=== PATIENT | male | born 1975 | race Caucasian/White ===

== ENCOUNTER 2017-02-24 19:13 | Emergency (ER) | payer OTHER ==
[~2017-02-24] VITALS: Ht 172.7 cm; Wt 75.0 kg
[~2017-02-24 19:13] MED LIST: FERR325T PO; FOLI1TAB4 PO; HYDR-3288 PO; RANI150T PO; VITA100T2 PO
[2017-02-24 19:25] VITALS: BP 113/67; PULSE 96; RESP 16; TEMP 97.6; O2SAT 96
[2017-02-25 00:26] VITALS: BP 110/68; PULSE 92; RESP 16; TEMP 98; O2SAT 96
[2017-02-25] MEDS ORDERED: SODIUM CHLOR 0.9% 1000 ML INJ 1,000 ML IV SCH (02:06)
[2017-02-25] MEDS ORDERED: SODIUM CHLORIDE 0.9% FLUSH 10 ML FLUSH IV FLUSH PRN (02:15)
[2017-02-25] MEDS ORDERED: MORPHINE SULFATE 4 MG/ML INJ IV PUSH ONE (02:15)
[2017-02-25] MEDS ORDERED: ONDANSETRON HCL 4 MG/2 ML VIAL IVP ONE (02:15)
[2017-02-25 02:18] VITALS: RESP 16
[2017-02-25 02:47] LABS: AUTOMATED NEUTROPHIL # 2.2 TH/MM3 (1.8-7.7); BASOPHIL # 0.1 TH/MM3 (0-0.2); BASOPHIL % 1.3 % (0.0-2.0); EOSINOPHIL # 0.1 TH/MM3 (0-0.4); EOSINOPHIL % 2.2 % (0.0-4.0); HEMATOCRIT 38.7 % (39.0-51.0); LYMPH % 37.1 % (9.0-44.0); LYMPHOCYTE # 1.9 TH/MM3 (1.0-4.8); MEAN CELL VOLUME 91.4 FL (80.0-100.0); MEAN CORPUSCULAR HGB CONC 33.9 % (32.0-36.0); MONO % 18.3 % (0.0-8.0); NEUT % 41.1 % (16.0-70.0); PLATELET COUNT 201 TH/MM3 (150-450); RED BLOOD COUNT 4.23 MIL/MM3 (4.50-5.90); RED CELL DISTRIBUTION WIDTH 18.5 % (11.6-17.2); WHITE BLOOD COUNT 5.2 TH/MM3 (4.0-11.0)
[2017-02-25 02:53] LABS: APTT (PATIENT) 28.1 SEC (24.3-30.1); HEMO FLAGS AUTO DIFF; PROTHROMBIN TIME - PATIENT 10.6 SEC (9.8-11.6)
[2017-02-25 03:05] LABS: ALKALINE PHOSPHATASE 43 U/L (45-117); TOTAL BILIRUBIN ADULT 0.2 MG/DL (0.2-1.0)
[2017-02-25 03:13] LABS: ALT (GPT) 46 U/L (12-78); ANION GAP 12 MEQ/L (5-15); AST (GOT) 54 U/L (15-37); BICARBONATE 23.4 MEQ/L (21.0-32.0); BLOOD UREA NITROGEN 6 MG/DL (7-18); CHLORIDE 104 MEQ/L (98-107); GLOMERULAR FILTRATION RATE 147 ML/MIN (>89); INDIRECT BILIRUBIN 0.1 MG/DL (0.0-0.8); SODIUM (NA) 139 MEQ/L (136-145)
[2017-02-25 03:14] LABS: POTASSIUM 4.1 MEQ/L (3.5-5.1)
[2017-02-25] MEDS ORDERED: HYDROmorphone HCL PF 1 MG/ML VIAL IV PUSH ONE (03:15)
[2017-02-25 03:22] LABS: HOWELL-JOLLY BODIES PRESENT (NONE SEEN); PLATELET ESTIMATE SMEAR NORMAL (NORMAL); PLATELET MORPHOLOGY NORMAL (NORMAL); SCAN/DIFF AUTO DIFF CONFIRMED; TARGET CELLS 1+ (NORMAL)
[2017-02-25 03:24] LABS: ACANTHOCYTES OCC (NORMAL)
[2017-02-25] MEDS ORDERED: IOHEXOL 350 MG/ML 50 ML BTL (for RAD DIAG) IV ONE (03:58)
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
--- NOTE | 2017-02-25 04:29 | RADRPT ---
EXAM DATE/TIME: 02/25/2017 03:54 [facility] COMPARISON: CT ABDOMEN & PELVIS W CONTRAST, August 30, 2016, 10:30. INDICATIONS : Abdominal pain. IV CONTRAST: 95 cc Omnipaque 350 (iohexol) IV ORAL CONTRAST: No oral contrast ingested. RADIATION DOSE: 5.86 CTDIvol (mGy) MEDICAL HISTORY : Gastroesophageal reflux disease. Pancreatitis. colitis SURGICAL HISTORY : Splenectomy. ENCOUNTER: Initial ACUITY: 1 day PAIN SCALE: 6/10 LOCATION: abdomen TECHNIQUE: Volumetric scanning of the abdomen and pelvis was performed. Using automated exposure control and ad justment of the mA and/or kV according to patient size, radiation dose was kept as low as reasonably achievable to obtain optimal diagnostic quality images. FINDINGS: Compare August 2016. Dependent atelectasis present at the lung bases. Mild fatty liver. Previous s plenectomy. Adrenals, kidneys and pancreas unremarkable. No calcified gallstones or biliary ductal di latation. There is no free fluid. No bowel obstruction. No adenopathy. CONCLUSION: 1. Mild dependent atelectasis at the lung bases. Mild fatty liver. No acute findings within the abdom en and pelvis. 2. Previous splenectomy. Rome Greco MD on February 25, 2017 at 4:22 Board Certified Radiologist. This report was verified electronically.
[2017-02-25] MEDS ORDERED: LIDOCAINE VISCOUS 2% SOLN 15 ML UDC PO ONE (05:00)
[2017-02-25] MEDS ORDERED: ALUMINUM/MAGNESIUM/SIMETH 30 ML CUP PO ONE (05:00)
[2017-02-25 05:38] VITALS: BP 138/83; PULSE 65; RESP 16; O2SAT 96
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
[2017-02-25] MEDS ORDERED: ZANT150T2 PO (06:22)
[2017-02-25] MEDS ORDERED: MAALSUS PO (06:22)
== END 2017-02-25 06:50 | disposition home or self-care (01) ==
LOC: NEPE 19:13
DX: K21.9 Gastro-esophageal reflux disease without esophagitis (principal); F17.210 Nicotine dependence, cigarettes, uncomplicated; K85.90 Acute pancreatitis without necrosis or infection, unspecified; F12.10 Cannabis abuse, uncomplicated; F10.10 Alcohol abuse, uncomplicated
CPT/HCPCS: 73590; 73630; 74177; 80048; 80076; 83690; 85025; 85610; 85730; 96361; 96374; 96375; 99284; J1170; J2270; J2405; J7030; Q9967

== ENCOUNTER 2017-04-15 16:59 | Emergency (ER) | payer OTHER ==
[~2017-04-15] VITALS: Ht 182.9 cm; Wt 69.5 kg
[~2017-04-15 16:59] MED LIST changes: -FERR325T PO; -FOLI1TAB4 PO; -HYDR-3288 PO; -VITA100T2 PO
[2017-04-15 17:09] VITALS: BP 112/76; PULSE 91; RESP 16; TEMP 99; O2SAT 95
--- NOTE | 2017-04-15 17:23 | PD ---
Physical Exam Time Seen by Provider: 17:21 Narrative 41 y/o male with RLE pain. Currently his RLE is wrapped in an daniel bandage. Vital signs reviewed. Seen at triage desk. Awaiting bed placement. Data Data Last Documented VS Vital Signs Date Time Temp Pulse Resp B/P Pulse Ox O2 Delivery O2 Flow Rate FiO2 04/15/17 17:09 99.0 91 16 112/76 95 MDM Medical Record Reviewed: Yes Supervised Visit with JOSE R: Stiven Olivarez April 15, 2017 17:23
[2017-04-15 19:43] VITALS: BP 135/75; PULSE 67; RESP 18; O2SAT 98
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
[2017-04-15] MEDS ORDERED: SODIUM CHLOR 0.9% 1000 ML INJ 1,000 ML IV ONE (20:00)
[2017-04-15] MEDS ORDERED: KETOROLAC TROMETHAMINE 30 MG/ML (IVP) VIAL IV PUSH ONE (20:00)
[2017-04-15] MEDS ORDERED: ONDANSETRON HCL 4 MG/2 ML VIAL IV ONE (20:00)
[2017-04-15] MEDS ORDERED: ceFAZolin 2 GM PREMIX 50 ML IV ONE (20:00)
[2017-04-15] MEDS ORDERED: CLINDAMYCIN INJ 900 MG in SODIUM CHLORIDE 0.9% INJ 100 ML IV ONE (20:00)
[2017-04-15 20:27] LABS: AUTOMATED NEUTROPHIL # 6.8 TH/MM3 (1.8-7.7); BASOPHIL # 0.1 TH/MM3 (0-0.2); BASOPHIL % 1.1 % (0.0-2.0); EOSINOPHIL # 0.1 TH/MM3 (0-0.4); EOSINOPHIL % 0.5 % (0.0-4.0); HEMATOCRIT 40.3 % (39.0-51.0); HEMO FLAGS DIFF FINAL; LYMPH % 14.7 % (9.0-44.0); LYMPHOCYTE # 1.5 TH/MM3 (1.0-4.8); MEAN CORPUSCULAR HGB CONC 33.7 % (32.0-36.0); MONO % 17.3 % (0.0-8.0); NEUT % 66.4 % (16.0-70.0); PLATELET COUNT 199 TH/MM3 (150-450); RED BLOOD COUNT 4.38 MIL/MM3 (4.50-5.90); RED CELL DISTRIBUTION WIDTH 17.7 % (11.6-17.2); WHITE BLOOD COUNT 10.2 TH/MM3 (4.0-11.0)
[2017-04-15 20:30] LABS: ANION GAP 10 MEQ/L (5-15)
[2017-04-15 20:33] LABS: ALKALINE PHOSPHATASE 69 U/L (45-117); ALT (GPT) 32 U/L (12-78); AST (GOT) 55 U/L (15-37); BICARBONATE 25.9 MEQ/L (21.0-32.0); BLOOD UREA NITROGEN 5 MG/DL (7-18); CHLORIDE 104 MEQ/L (98-107); GLOMERULAR FILTRATION RATE 136 ML/MIN (>89); MAGNESIUM 2.1 MG/DL (1.5-2.5); POTASSIUM 3.7 MEQ/L (3.5-5.1); SODIUM (NA) 140 MEQ/L (136-145); TOTAL BILIRUBIN ADULT 0.4 MG/DL (0.2-1.0)
[2017-04-15 21:15] LABS: AMPHETAMINE, URINE NEG (NEG); BARBITURATES, URINE NEG (NEG); BLOOD, URINE TRACE (NEG); COCAINE, URINE NEG (NEG); COMMENT (UR) CULT NOT INDICATED; CULTURE IF INDICATED CULT NOT INDICATED; GLUCOSE,URINE NEG (NEG); KETONE, URINE NEG (NEG); MUCUS URINE FEW /lpf (OCC); NITRITE,URINE NEG (NEG); PH, URINE 5.5 (5.0-8.5); URINE COLOR YELLOW (YELLW/STRAW)
[2017-04-15] MEDS ORDERED: ACETAMINOPHEN 325 MG TAB PO ONE (21:30)
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
[2017-04-15] MEDS ORDERED: CEPH-460 PO (22:10)
[2017-04-15] MEDS ORDERED: BACT800T5 PO (22:10)
[2017-04-15] MEDS ORDERED: ZOFR4TAB3 SL (22:11)
[2017-04-15] MEDS ORDERED: NAPR-239 PO (22:11)
== END 2017-04-15 22:37 | disposition home or self-care (01) ==
LOC: NEPE 16:59
DX: L08.9 Local infection of the skin and subcutaneous tissue, unspecified (principal); M79.604 Pain in right leg; R10.13 Epigastric pain; R11.2 Nausea with vomiting, unspecified; K85.90 Acute pancreatitis without necrosis or infection, unspecified; K21.9 Gastro-esophageal reflux disease without esophagitis; F17.210 Nicotine dependence, cigarettes, uncomplicated; Z86.14 Personal history of Methicillin resistant Staphylococcus aureus infection
CPT/HCPCS: 71010; 80053; 80307; 81001; 83690; 83735; 85025; 96365; 96368; 96375; 99284; J0690; J1885; J2405; J7030

== ENCOUNTER 2017-04-28 13:22 | Inpatient (IN) | payer OTHER ==
[~2017-04-28] VITALS: Ht 182.9 cm; Wt 70.0 kg
[~2017-04-28 13:22] MED LIST changes: +BACT800T5 PO; +CEPH-460 PO; +NAPR-239 PO; +ZOFR4TAB3 SL
[2017-04-28] MEDS ORDERED: SODIUM CHLOR 0.9% 1000 ML INJ 1,000 ML IV SCH (13:29)
[2017-04-28] MEDS ORDERED: ONDANSETRON HCL 4 MG/2 ML VIAL IVP ONE (13:30)
[2017-04-28] MEDS ORDERED: SODIUM CHLORIDE 0.9% FLUSH 10 ML FLUSH IV FLUSH PRN ×2 (13:30→15:15)
[2017-04-28] MEDS ORDERED: LORazepam 2 MG/ML VIAL IV PUSH ONE (13:30)
[2017-04-28] MEDS ORDERED: HYDROmorphone HCL PF 1 MG/ML VIAL IVS ONE (13:30)
[2017-04-28 13:31] VITALS: BP 112/71; PULSE 57; RESP 16; TEMP 98.2; O2SAT 98
[2017-04-28 14:04] LABS: AUTOMATED NEUTROPHIL # 6.4 TH/MM3 (1.8-7.7); BASOPHIL % 0.6 % (0.0-2.0); HEMATOCRIT 38.6 % (39.0-51.0); HEMO FLAGS DIFF FINAL; LYMPH % 9.6 % (9.0-44.0); LYMPHOCYTE # 0.8 TH/MM3 (1.0-4.8); MEAN CELL VOLUME 93.3 FL (80.0-100.0); MEAN CORPUSCULAR HEMOGLOBIN 31.7 PG (27.0-34.0); MONO % 12.4 % (0.0-8.0); NEUT % 77.4 % (16.0-70.0); PLATELET COUNT 161 TH/MM3 (150-450); RED BLOOD COUNT 4.14 MIL/MM3 (4.50-5.90); RED CELL DISTRIBUTION WIDTH 18.8 % (11.6-17.2); WHITE BLOOD COUNT 8.3 TH/MM3 (4.0-11.0)
[2017-04-28 14:18] LABS: ALT (GPT) 42 U/L (12-78); ANION GAP 11 MEQ/L (5-15); AST (GOT) 67 U/L (15-37); BICARBONATE 25.6 MEQ/L (21.0-32.0); BLOOD UREA NITROGEN 5 MG/DL (7-18); CHLORIDE 101 MEQ/L (98-107); POTASSIUM 3.5 MEQ/L (3.5-5.1); SODIUM (NA) 138 MEQ/L (136-145)
[2017-04-28 14:22] LABS: ALKALINE PHOSPHATASE 58 U/L (45-117); TOTAL BILIRUBIN ADULT 0.4 MG/DL (0.2-1.0)
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
[2017-04-28] MEDS ORDERED: FLUMAZENIL 0.5 MG/5 ML VIAL IV PUSH PRN (15:15)
[2017-04-28] MEDS ORDERED: LORazepam 1 MG TAB PO PRN (15:15)
[2017-04-28] MEDS ORDERED: LORazepam 2 MG TAB PO PRN (15:15)
[2017-04-28] MEDS ORDERED: LORazepam 2 MG/ML VIAL IV PUSH PRN ×3 (15:15)
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
[2017-04-28] MEDS: HEPARIN SODIUM - SQ 10,000 UNITS/ML VIAL SQ SCH (15:37)
[2017-04-28] MEDS: HYDROmorphone HCL PF 1 MG/ML VIAL IV PRN ×3 (15:38→22:18)
[2017-04-28 16:00] VITALS: BP 134/86; PULSE 60; RESP 12; TEMP 96.4; O2SAT 95
[2017-04-28 16:20] VITALS: BP 119/69
[2017-04-28] MEDS: SODIUM CHLOR 0.9% 1000 ML INJ 1,000 ML IV SCH ×2 (18:25→23:42)
[2017-04-28] MEDS: ONDANSETRON HCL 4 MG/2 ML VIAL IV PRN (18:25)
[2017-04-28 20:00] VITALS: BP 132/85; PULSE 74; RESP 17; TEMP 98.2; O2SAT 97
[2017-04-28] MEDS: PANTOPRAZOLE SODIUM 40 MG VIAL IV PUSH SCH (20:40)
[2017-04-28] MEDS: SODIUM CHLORIDE 0.9% FLUSH 10 ML FLUSH IV FLUSH SCH (20:43)
[2017-04-29] VITALS: BP 133/82; PULSE 71; RESP 17; TEMP 99; O2SAT 96
[2017-04-29] MEDS: HYDROmorphone HCL PF 1 MG/ML VIAL IV PRN ×3 (01:46→09:00)
[2017-04-29] MEDS: LORazepam 2 MG/ML VIAL IV PUSH PRN ×2 (02:29→06:14)
[2017-04-29] MEDS: HEPARIN SODIUM - SQ 10,000 UNITS/ML VIAL SQ SCH ×2 (05:03→17:21)
[2017-04-29 05:46] LABS: BICARBONATE 25.2 MEQ/L (21.0-32.0); POTASSIUM 3.9 MEQ/L (3.5-5.1)
[2017-04-29] MEDS: ONDANSETRON HCL 4 MG/2 ML VIAL IV PRN (06:15)
[2017-04-29 08:00] VITALS: BP 118/77; PULSE 69; RESP 16; TEMP 97.7; O2SAT 97
[2017-04-29] MEDS: SODIUM CHLORIDE 0.9% FLUSH 10 ML FLUSH IV FLUSH SCH ×2 (08:58→19:55)
[2017-04-29] MEDS: SODIUM CHLOR 0.9% 1000 ML INJ 1,000 ML IV SCH ×3 (08:59→21:52)
--- NOTE | 2017-04-29 10:01 | HHI.PR ---
Subjective Remarks Patient seen in follow-up for alcoholic pancreatitis Reports he is feeling slightly better. Still having midepigastric pain and nausea. No vomiting. Objective Vitals Vital Signs Date Time Temp Pulse Resp B/P Pulse Ox O2 Delivery O2 Flow Rate FiO2 04/29/17 08:00 97.7 69 16 118/77 97 04/29/17 06:06 18 04/29/17 00:00 99.0 71 17 133/82 96 04/28/17 20:00 98.2 74 17 132/85 97 04/28/17 16:20 89 20 119/69 99 04/28/17 16:00 96.4 60 12 134/86 95 04/28/17 13:31 98.2 57 16 112/71 98 I/O 04/28/17 04/28/17 04/28/17 04/29/17 04/29/17 04/29/17 07:00 15:00 23:00 07:00 15:00 23:00 Intake Total 296 ml 346 ml Balance 296 ml 346 ml Intake Oral 0 ml 0 ml IV Total 296 ml 346 ml # Voids 2 2 Result Diagram: 04/28/17 1340 04/29/17 0505 Objective Remarks GENERAL: This is a well-nourished, well-developed patient, in no apparent distress. CARDIOVASCULAR: Normal rate and regular rhythm without murmurs, gallops, or rubs. RESPIRATORY: Good respiratory efforts. Breath sounds equal and clear to auscultation bilaterally. GASTROINTESTINAL: Abdomen soft, tender to palpation in the midepigastric region. Normal active bowel sounds MUSCULOSKELETAL: Extremities without cyanosis, or edema. NEURO: Alert & Oriented x4 to person, place, time, situation. Moves all ext x4 PSYCH: Appropriate mood and affect. A/P Problem List: (1) Pancreatitis ICD Code: K85.90 Status: Acute (2) ETOH abuse ICD Code: F10.10 Status: Chronic Assessment and Plan 41-year-old male with: Acute alcoholic pancreatitis: Recurrent secondary to alcohol dependence. Lipase improved to 2K today. Patient still symptomatic Supportive care with IV fluid Change pain medication to Percocet and morphine IV as needed for breakthrough. Alcohol dependence: The patient was thoroughly counseled. He currently does not have a plan for rehabilitation. GI prophylaxis: PPI. Stool softener PRN constipation. DVT PPx: Heparin Discussed with ANABEL. Latrell Coe MD April 29, 2017 10:01
[2017-04-29 12:00] VITALS: BP_SYST 118; BP_SYST 123; BP_DIAS 67; BP_DIAS 77; PULSE 69; PULSE 74; RESP 16; RESP 18; TEMP 97.2; TEMP 97.7; O2SAT 96; O2SAT 97
[2017-04-29] MEDS: oxyCODONE/ACETAMINOPHEN 7.5 MG/325 MG TAB PO PRN ×2 (13:22→19:54)
[2017-04-29 16:00] VITALS: BP 136/86; PULSE 72; RESP 16; TEMP 97.6; O2SAT 95
[2017-04-29] MEDS: MORPHINE SULFATE 4 MG/ML INJ IV PUSH PRN ×2 (17:27→21:52)
[2017-04-29] MEDS: PANTOPRAZOLE SODIUM 40 MG VIAL IV PUSH SCH (19:54)
[2017-04-29 21:00] VITALS: BP 133/77; PULSE 71; RESP 17; TEMP 98.7; O2SAT 97
[2017-04-30] VITALS: BP 120/76; PULSE 71; RESP 17; TEMP 98; O2SAT 97
[2017-04-30] MEDS: oxyCODONE/ACETAMINOPHEN 7.5 MG/325 MG TAB PO PRN ×3 (01:25→09:40)
[2017-04-30] MEDS: MORPHINE SULFATE 4 MG/ML INJ IV PUSH PRN ×2 (02:43→06:37)
[2017-04-30] MEDS: HEPARIN SODIUM - SQ 10,000 UNITS/ML VIAL SQ SCH (05:31)
[2017-04-30] MEDS: SODIUM CHLOR 0.9% 1000 ML INJ 1,000 ML IV SCH (05:32)
[2017-04-30 06:24] LABS: BICARBONATE 27.7 MEQ/L (21.0-32.0); POTASSIUM 3.7 MEQ/L (3.5-5.1)
[2017-04-30 08:00] VITALS: BP 124/76; PULSE 68; RESP 18; TEMP 98.4; O2SAT 95
[2017-04-30] MEDS: SODIUM CHLORIDE 0.9% FLUSH 10 ML FLUSH IV FLUSH SCH (08:32)
[2017-04-30] MEDS ORDERED: PROT40TA PO (08:59)
[2017-04-30] MEDS ORDERED: DOCUSATE SODIUM 100 MG CAP PO SCH (09:00)
[2017-04-30] MEDS ORDERED: HYDR-3533 PO (09:40)
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
--- NOTE | 2017-04-30 09:44 | HHI.DS ---
Discharge Summary Admission Date April 28, 2017 at 15:03 Discharge Date: April 30, 2017 Admitting Diagnosis acute pancreatitis (1) Pancreatitis ICD Code: K85.90 (2) ETOH abuse ICD Code: F10.10 Procedures None Brief History - From Admission 41-year-old male with a medical history significant for alcohol dependence and previous history of an cryptitis presented to the hospital with complaint of epigastric pain, nausea and vomiting for the past few days. He continues to drink alcohol up until this morning. He reports he drinks anywhere from 4-8 beers. Today he could no longer keep anything down therefore he presented to the hospital. He describes a sharp, severe midepigastric pain. He had an episode this morning where he became diaphoretic with nausea and vomiting. Workup in the emergency room consistent with acute pancreatitis. Patient admits to having withdrawal symptoms in the past but denies alcohol withdrawal seizures or ICU admissions. CBC/BMP: 04/28/17 1340 04/30/17 0538 Significant Findings Laboratory Tests Test 04/28/17 04/28/17 04/29/17 04/30/17 13:40 14:00 05:05 05:38 Red Blood Count 4.14 MIL/MM3 (4.50-5.90) Hematocrit 38.6 % (39.0-51.0) Red Cell Distribution Width 18.8 % (11.6-17.2) Neutrophils (%) (Auto) 77.4 % (16.0-70.0) Monocytes (%) (Auto) 12.4 % (0.0-8.0) Lymphocytes # (Auto) 0.8 TH/MM3 (1.0-4.8) Monocytes # (Auto) 1.0 TH/MM3 (0-0.9) Blood Urea Nitrogen 5 MG/DL (7-18) 6 MG/DL (7-18) 3 MG/DL (7-18) Creatinine 0.53 MG/DL 0.49 MG/DL (0.60-1.30) (0.60-1.30) Aspartate Amino Transf 67 U/L (15-37) (AST/SGOT) Albumin 3.3 GM/DL (3.4-5.0) Lipase 3252 U/L 2289 U/L (73-393) (73-393) Lactic Acid Level 2.3 mmol/L (0.4-2.0) Sodium Level 135 MEQ/L (136-145) Random Glucose 66 MG/DL (74-106) Calcium Level 8.3 MG/DL (8.5-10.1) PE at Discharge GENERAL: This is a well-nourished, well-developed patient, in no apparent distress. CARDIOVASCULAR: Normal rate and regular rhythm without murmurs, gallops, or rubs. RESPIRATORY: Good respiratory efforts. Breath sounds equal and clear to auscultation bilaterally. GASTROINTESTINAL: Abdomen soft, tender to palpation in the midepigastric region. Normal active bowel sounds MUSCULOSKELETAL: Extremities without cyanosis, or edema. NEURO: Alert & Oriented x4 to person, place, time, situation. Moves all ext x4 PSYCH: Appropriate mood and affect. Pt update on day of discharge Patient reports he is feeling better. He wants to eat. Abdominal pain have significantly improved. He has no nausea. Ready for discharge. Hospital Course 41-year-old male with chronic alcohol dependence and recurrent alcoholic pancreatitis admitted for another episode of acute alcoholic pancreatitis. The patient was treated with supportive care including IV fluids and pain medication. His lipase trended down to normal levels. His abdominal pain improved. He was thoroughly counseled to stop drinking alcohol. Unfortunately he does not have a plan to stop. His girlfriend drinks with him every day. The patient was also counseled about his tobacco dependence. He is discharged in stable condition. Pt Condition on Discharge: Good Discharge Disposition: Discharge Home Discharge Time: <= 30 minutes Discharge Instructions DIET: Follow Instructions for: Heart Healthy Diet Activities you can perform: Regular-No Restrictions New Medications: Hydrocodone-Acetaminophen (Lortab) 5-325 Mg Tab 1 TAB PO Q6H PRN PAIN #15 Ref 0 TAB Pantoprazole (Protonix) 40 Mg Tab 40 MG PO DAILY Reflux #30 Ref 0 TAB Latrell Coe MD April 30, 2017 09:44
== END 2017-04-30 11:39 | disposition home or self-care (01) | DRG 440 ==
LOC: NEPE 13:22 → NEDA 15:03 → OBSVTOIN 15:03 → N07A 16:54
PROVIDERS: ADMIT Family Medicine; ATTEND Family Medicine
DX: K85.20 Alcohol induced acute pancreatitis without necrosis or infection (principal); F10.20 Alcohol dependence, uncomplicated; F17.210 Nicotine dependence, cigarettes, uncomplicated; Z59.0 Homelessness
CPT/HCPCS: 80048; 80053; 82948; 83605; 83690; 85025; 96374; 96375; C9113; J1170; J1644; J2060; J2270; J2405; J7030

== ENCOUNTER 2017-05-11 17:41 | Inpatient (IN) | payer OTHER ==
[~2017-05-11] VITALS: Ht 182.9 cm; Wt 80.0 kg
[~2017-05-11 17:41] MED LIST changes: -BACT800T5 PO; -CEPH-460 PO; +HYDR-3533 PO; -NAPR-239 PO; +PROT40TA PO; -RANI150T PO; -ZOFR4TAB3 SL
[2017-05-11 17:54] VITALS: BP 124/78; PULSE 78; RESP 18; TEMP 98.4; O2SAT 95
[2017-05-11 17:57] VITALS: RESP 18; O2SAT 98
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
[2017-05-11] MEDS ORDERED: SODIUM CHLORIDE 0.9% FLUSH 10 ML FLUSH IV FLUSH PRN ×2 (18:00→20:00)
[2017-05-11] MEDS ORDERED: MORPHINE SULFATE 4 MG/ML INJ IV PUSH ONE ×2 (18:00→19:30)
[2017-05-11] MEDS ORDERED: ACETAMINOPHEN/HYDROcodone 325 MG/5 MG TAB PO ONE (18:00)
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
[2017-05-11] MEDS ORDERED: ONDANSETRON HCL 4 MG/2 ML VIAL IV PUSH ONE (18:30)
[2017-05-11 18:52] LABS: AUTOMATED NEUTROPHIL # 4.1 TH/MM3 (1.8-7.7); BASOPHIL # 0.3 TH/MM3 (0-0.2); BASOPHIL % 4.6 % (0.0-2.0); EOSINOPHIL # 0.1 TH/MM3 (0-0.4); EOSINOPHIL % 1.3 % (0.0-4.0); HEMATOCRIT 37.9 % (39.0-51.0); HEMO FLAGS DIFF FINAL; LYMPH % 17.8 % (9.0-44.0); LYMPHOCYTE # 1.2 TH/MM3 (1.0-4.8); MEAN CELL VOLUME 96.6 FL (80.0-100.0); MEAN CORPUSCULAR HEMOGLOBIN 31.2 PG (27.0-34.0); MEAN CORPUSCULAR HGB CONC 32.3 % (32.0-36.0); MONO % 12.7 % (0.0-8.0); NEUT % 63.6 % (16.0-70.0); PLATELET COUNT 143 TH/MM3 (150-450); RED BLOOD COUNT 3.92 MIL/MM3 (4.50-5.90); WHITE BLOOD COUNT 6.5 TH/MM3 (4.0-11.0)
[2017-05-11 19:05] LABS: APTT (PATIENT) 29.9 SEC (24.3-30.1); INTERNATIONAL NORMALIZED RATIO 0.9 RATIO; PROTHROMBIN TIME - PATIENT 10.4 SEC (9.8-11.6)
[2017-05-11 19:10] LABS: ALT (GPT) 36 U/L (12-78)
[2017-05-11 19:12] LABS: ANION GAP 9 MEQ/L (5-15); AST (GOT) 64 U/L (15-37); BICARBONATE 26.1 MEQ/L (21.0-32.0); BLOOD UREA NITROGEN 9 MG/DL (7-18); CHLORIDE 105 MEQ/L (98-107); POTASSIUM 3.8 MEQ/L (3.5-5.1); SODIUM (NA) 140 MEQ/L (136-145)
[2017-05-11 19:14] LABS: ALKALINE PHOSPHATASE 54 U/L (45-117); CREATINE KINASE 382 U/L (39-308); TOTAL BILIRUBIN ADULT 0.3 MG/DL (0.2-1.0)
[2017-05-11 19:26] LABS: CKMB 2.6 NG/ML (0.5-3.6)
[2017-05-11] MEDS ORDERED: SODIUM CHLOR 0.9% 1000 ML INJ 1,000 ML IV ONE ×2 (19:30)
[2017-05-11] MEDS ORDERED: LACTULOSE SYRUP 20 GM/30 ML CUP PO PRN (20:00)
[2017-05-11] MEDS ORDERED: ACETAMINOPHEN 325 MG TAB PO PRN (20:00)
[2017-05-11] MEDS ORDERED: MORPHINE SULFATE 4 MG/ML INJ IV PUSH PRN (20:00)
[2017-05-11] MEDS ORDERED: MAGNESIUM HYDROXIDE SUSP 30 ML CUP PO PRN (20:00)
[2017-05-11] MEDS ORDERED: BISACODYL 10 MG SUPP RECTAL PRN (20:00)
[2017-05-11] MEDS ORDERED: SENNOSIDES 8.6 MG TAB PO PRN (20:00)
[2017-05-11] MEDS ORDERED: ONDANSETRON HCL 4 MG/2 ML VIAL IVP PRN (20:00)
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
[2017-05-11] MEDS ORDERED: LORazepam 2 MG/ML VIAL IV PUSH PRN ×4 (20:15)
[2017-05-11] MEDS ORDERED: cloNIDine HCL 0.1 MG TAB PO PRN (20:15)
[2017-05-11] MEDS ORDERED: FLUMAZENIL 0.5 MG/5 ML VIAL IV PUSH PRN (20:15)
[2017-05-11] MEDS ORDERED: LORazepam 2 MG TAB PO PRN (20:15)
[2017-05-11 20:18] VITALS: BP 134/76; PULSE 68; RESP 16; O2SAT 97
[2017-05-11] MEDS: SODIUM CHLORIDE 0.9% FLUSH 10 ML FLUSH IV FLUSH SCH (21:00)
[2017-05-11] MEDS: THIAMINE INJ 100 MG in SODIUM CHLORIDE 0.9% INJ 100 ML IV SCH (21:12)
[2017-05-11] MEDS: DOCUSATE SODIUM 50 MG/SENNA 8.6 MG TAB PO SCH (21:12)
[2017-05-11] MEDS: MULTIVITAMIN INJ 10 ML, FOLIC ACID INJ 1 MG in SODIUM CHLORID 0.9% 500 ML INJ 500 ML IV SCH (21:12)
[2017-05-11 21:13] VITALS: BP 107/76; PULSE 78; RESP 18; TEMP 97.6; O2SAT 97
[2017-05-11] MEDS: SODIUM CHLOR 0.9% 1000 ML INJ 1,000 ML IV SCH (21:13)
[2017-05-11 22:00] VITALS: PULSE 64
[2017-05-11] MEDS: HYDROmorphone HCL PF 1 MG/ML VIAL IV PUSH PRN (22:53)
[2017-05-11] MEDS ORDERED: RESP: ALBUTEROL 2.5 MG/IPRATROPIUM 0.5 MG NEB (PRN) NEB (23:30)
[2017-05-12] VITALS (7 sets, daily range): BP systolic 111–137; BP diastolic 61–85; PULSE 43–79; RESP 18–20; TEMP 97.5–98.7; O2SAT 96–98
[2017-05-12 00:35] LABS: MAGNESIUM 1.9 MG/DL (1.5-2.5)
[2017-05-12 00:38] LABS: CREATINE KINASE 280 U/L (39-308)
[2017-05-12] MEDS: HYDROmorphone HCL PF 1 MG/ML VIAL IV PUSH PRN ×2 (03:00→07:50)
[2017-05-12 05:23] LABS: AUTOMATED NEUTROPHIL # 3.9 TH/MM3 (1.8-7.7); BASOPHIL # 0.1 TH/MM3 (0-0.2); BASOPHIL % 1.6 % (0.0-2.0); EOSINOPHIL # 0.1 TH/MM3 (0-0.4); EOSINOPHIL % 1.8 % (0.0-4.0); HEMATOCRIT 32.8 % (39.0-51.0); HEMO FLAGS DIFF FINAL; LYMPH % 19.1 % (9.0-44.0); LYMPHOCYTE # 1.2 TH/MM3 (1.0-4.8); MEAN CELL VOLUME 95.5 FL (80.0-100.0); MEAN CORPUSCULAR HEMOGLOBIN 32.2 PG (27.0-34.0); MEAN CORPUSCULAR HGB CONC 33.7 % (32.0-36.0); MONO % 14.2 % (0.0-8.0); NEUT % 63.3 % (16.0-70.0); PLATELET COUNT 120 TH/MM3 (150-450); RED BLOOD COUNT 3.44 MIL/MM3 (4.50-5.90); RED CELL DISTRIBUTION WIDTH 17.6 % (11.6-17.2); WHITE BLOOD COUNT 6.2 TH/MM3 (4.0-11.0)
[2017-05-12] MEDS: SODIUM CHLOR 0.9% 1000 ML INJ 1,000 ML IV SCH ×4 (05:54→21:23)
[2017-05-12 06:03] LABS: ALKALINE PHOSPHATASE 45 U/L (45-117); ALT (GPT) 28 U/L (12-78); ANION GAP 12 MEQ/L (5-15); AST (GOT) 44 U/L (15-37); BICARBONATE 23.3 MEQ/L (21.0-32.0); BLOOD UREA NITROGEN 5 MG/DL (7-18); CALCIUM-PROTEIN CORRECTED 7.8 MG/DL (8.5-10.1); CHLORIDE 105 MEQ/L (98-107); CREATINE KINASE 236 U/L (39-308); GLOMERULAR FILTRATION RATE 190 ML/MIN (>89); POTASSIUM 3.5 MEQ/L (3.5-5.1); SODIUM (NA) 140 MEQ/L (136-145); TOTAL BILIRUBIN ADULT 0.4 MG/DL (0.2-1.0)
[2017-05-12] MEDS: PANTOPRAZOLE SOD 40 MG DELAYED RELEASE TAB PO SCH (07:51)
[2017-05-12] MEDS: DOCUSATE SODIUM 50 MG/SENNA 8.6 MG TAB PO SCH ×2 (07:51→21:00)
[2017-05-12] MEDS: SODIUM CHLORIDE 0.9% FLUSH 10 ML FLUSH IV FLUSH SCH ×2 (07:52→20:04)
[2017-05-12] MEDS: LORazepam 1 MG TAB PO PRN ×2 (07:57→21:27)
--- NOTE | 2017-05-12 10:36 | HHI.PR ---
Subjective Remarks Follow-up recurrent acute pancreatitis 05/12/17-patient seen and examined, CIWA score 19 ,complains of abdominal pain and patient currently bradycardic secondary to pain medication along with benzo Objective Vitals Vital Signs Date Time Temp Pulse Resp B/P Pulse Ox O2 Delivery O2 Flow Rate FiO2 05/12/17 08:00 98.3 51 18 132/85 96 05/12/17 04:27 97.5 67 18 127/81 98 05/12/17 03:30 18 05/12/17 00:00 97.6 73 18 111/61 96 05/11/17 22:00 64 05/11/17 21:13 97.6 78 18 107/76 97 05/11/17 20:37 16 05/11/17 20:18 68 16 134/76 97 Room Air 05/11/17 19:15 16 05/11/17 17:57 18 98 Room Air 05/11/17 17:54 81 18 95 Room Air 05/11/17 17:54 98.4 78 18 124/78 95 Room Air I/O 05/11/17 05/11/17 05/11/17 05/12/17 05/12/17 05/12/17 07:00 15:00 23:00 07:00 15:00 23:00 Intake Total 2000 ml 703 ml 0 ml Output Total 700 ml Balance 2000 ml 3 ml 0 ml Intake Oral 0 ml IV Total 2000 ml 703 ml Output Urine Total 700 ml # Voids 1 Result Diagram: 05/12/17 0426 05/12/17 0426 Imaging Last Impressions Chest X-Ray 05/11/17 9963 Signed Impressions: Service Date/Time: Thursday, May 11, 2017 18:03 - CONCLUSION: No evidence of acute cardiopulmonary disease. Narinder Caban MD Objective Remarks GENERAL: NAD with upper extremities tremors SKIN: Warm and dry. HEAD: Normocephalic. EYES: No scleral icterus. No injection or drainage. NECK: Supple, trachea midline. No JVD or lymphadenopathy. CARDIOVASCULAR: Regular rate and rhythm without murmurs, gallops, or rubs. RESPIRATORY: Breath sounds equal bilaterally. No accessory muscle use. GASTROINTESTINAL: Abdomen soft, mildly tender, nondistended. Positive bowel sounds MUSCULOSKELETAL: No cyanosis, or edema. BACK: Nontender without obvious deformity. No CVA tenderness. A/P Problem List: (1) Recurrent acute pancreatitis ICD Code: K85.90 Status: Acute (2) Chest wall contusion ICD Code: S20.219A Status: Acute (3) Alcohol abuse ICD Code: F10.10 Status: Acute Assessment and Plan 41-year-old man with Recurrent acute pancreatitis Lipase trending down to 2750 and monitor lipase level Continue conservative management with nothing by mouth, aggressive IV fluid hydration, monitoring of calcium Change parenteral pain medication to IV Toradol Chronic alcohol abuse Alcohol cessation counseling provided Continue rally pack, CIWA protocol, seizure precaution start Librium when necessary Tobacco abuse Tobacco cessation counseling provided Nicotine when necessary Bradycardia Secondary to medication side effect Telemetry monitoring Atypical chest pain Noncardiac, secondary to episode of emesis and likely secondary to GI ACS ruled out per protocol with serial cardiac enzyme and EKGs Thrombocytopenia Secondary to liver disease, monitor platelets Normochromic normocytic anemia-secondary to chronic disease H&H stable, continue to monitor DVT prophylaxis: Bilateral SCDs GI prophylaxis: PPI Problem Qualifiers (1) Chest wall contusion: Qualified Code: S20.212A - Chest wall contusion, left, initial encounter Mayco Machado MD May 12, 2017 10:36
[2017-05-12] MEDS: KETOROLAC TROMETHAMINE 30 MG/ML (IVP) VIAL IVP PRN ×3 (11:17→23:00)
--- NOTE | 2017-05-12 11:37 | EKG ---
Date Performed: 05/11/2017 Time Performed: 20:28:53 PTAGE: 41 years EKG: Sinus rhythm Since previous tracing, no significant change noted NORMAL ECG PREVIOUS TRACING : 05/11/2017 18.20.27 DOCTOR: Cricket Goss Interpretating Date/Time 05/12/2017 11:37:25
--- NOTE | 2017-05-12 11:37 | EKG ---
Date Performed: 05/11/2017 Time Performed: 18:20:27 PTAGE: 41 years EKG: Sinus rhythm WITH SINUS ARRHYTHMIA MINIMAL VOLTAGE CRITERIA FOR LVH, CONSIDER NORMAL VARIANT Since previous shane ng, no significant change noted BORDERLINE ECG PREVIOUS TRACING : 11/21/2016 10.52.18 DOCTOR: Cricket Goss Interpretating Date/Time 05/12/2017 11:35:28
[2017-05-12] MEDS: THIAMINE INJ 100 MG in SODIUM CHLORIDE 0.9% INJ 100 ML IV SCH (21:23)
[2017-05-12] MEDS: MULTIVITAMIN INJ 10 ML, FOLIC ACID INJ 1 MG in SODIUM CHLORID 0.9% 500 ML INJ 500 ML IV SCH (21:23)
[2017-05-13 00:30] VITALS: BP 129/80; PULSE 79; RESP 16; TEMP 97.8; O2SAT 96
[2017-05-13 04:55] VITALS: BP 118/73; PULSE 78; RESP 18; TEMP 97.8; O2SAT 98
[2017-05-13 05:30] LABS: BASOPHIL # 0.1 TH/MM3 (0-0.2); BASOPHIL % 1.1 % (0.0-2.0); EOSINOPHIL # 0.1 TH/MM3 (0-0.4); HEMATOCRIT 37.3 % (39.0-51.0); LYMPH % 15.9 % (9.0-44.0); MEAN CORPUSCULAR HEMOGLOBIN 32.4 PG (27.0-34.0); MEAN CORPUSCULAR HGB CONC 33.7 % (32.0-36.0); MONO % 18.5 % (0.0-8.0); NEUT % 62.5 % (16.0-70.0); PLATELET COUNT 127 TH/MM3 (150-450); RED BLOOD COUNT 3.89 MIL/MM3 (4.50-5.90); RED CELL DISTRIBUTION WIDTH 16.9 % (11.6-17.2); WHITE BLOOD COUNT 6.5 TH/MM3 (4.0-11.0)
[2017-05-13 05:33] LABS: HEMO FLAGS AUTO DIFF
[2017-05-13 05:41] LABS: ALKALINE PHOSPHATASE 54 U/L (45-117); ALT (GPT) 24 U/L (12-78); ANION GAP 8 MEQ/L (5-15); AST (GOT) 29 U/L (15-37); BICARBONATE 26.6 MEQ/L (21.0-32.0); BLOOD UREA NITROGEN 4 MG/DL (7-18); CHLORIDE 103 MEQ/L (98-107); GLOMERULAR FILTRATION RATE 159 ML/MIN (>89); POTASSIUM 4.1 MEQ/L (3.5-5.1); SODIUM (NA) 138 MEQ/L (136-145); TOTAL BILIRUBIN ADULT 0.7 MG/DL (0.2-1.0)
[2017-05-13] MEDS: KETOROLAC TROMETHAMINE 30 MG/ML (IVP) VIAL IVP PRN (05:48)
[2017-05-13 07:29] LABS: TARGET CELLS 2+ (NORMAL)
[2017-05-13 07:30] LABS: HOWELL-JOLLY BODIES PRESENT (NONE SEEN); PLATELET MORPHOLOGY ENLARGED (NORMAL)
[2017-05-13 07:31] LABS: PLATELET ESTIMATE SMEAR NORMAL (NORMAL)
[2017-05-13 07:32] LABS: SCAN/DIFF AUTO DIFF CONFIRMED
[2017-05-13 08:00] VITALS: BP 149/81; PULSE 55; RESP 18; TEMP 98.3; O2SAT 99
[2017-05-13] MEDS: PANTOPRAZOLE SOD 40 MG DELAYED RELEASE TAB PO SCH (08:39)
[2017-05-13] MEDS: DOCUSATE SODIUM 50 MG/SENNA 8.6 MG TAB PO SCH (08:40)
[2017-05-13] MEDS: SODIUM CHLORIDE 0.9% FLUSH 10 ML FLUSH IV FLUSH SCH (08:40)
[2017-05-13] MEDS: SODIUM CHLOR 0.9% 1000 ML INJ 1,000 ML IV SCH (08:46)
[2017-05-13 08:59] VITALS: O2SAT 99
--- NOTE | 2017-05-13 09:50 | HHI.PR ---
Subjective Remarks Follow-up recurrent acute pancreatitis 05/12/17-patient seen and examined, CIWA score 19 ,complains of abdominal pain and patient currently bradycardic secondary to pain medication along with benzo 05/13/17-patient seen and examined, lipase 255 and patient was so mild abdominal pain otherwise stable Objective Vitals Vital Signs Date Time Temp Pulse Resp B/P Pulse Ox O2 Delivery O2 Flow Rate FiO2 05/13/17 08:59 99 21 05/13/17 08:00 98.3 55 18 149/81 99 05/13/17 04:55 97.8 78 18 118/73 98 05/13/17 00:30 97.8 79 16 129/80 96 05/12/17 20:25 97 21 05/12/17 20:00 98.7 79 18 115/72 97 05/12/17 16:27 98.4 43 20 137/73 97 05/12/17 12:00 98.5 50 18 124/84 96 I/O 05/12/17 05/12/17 05/12/17 05/13/17 05/13/17 05/13/17 07:00 15:00 23:00 07:00 15:00 23:00 Intake Total 703 ml 749 ml 1078 ml 0 ml Output Total 700 ml 1000 ml 1000 ml Balance 3 ml 749 ml 78 ml -1000 ml 0 ml Intake Oral 0 ml 0 ml IV Total 703 ml 749 ml 1078 ml Output Urine Total 700 ml 1000 ml 1000 ml # Bowel Movements 2 Result Diagram: 05/13/17 0414 05/13/17 0414 Imaging Last Impressions Chest X-Ray 05/11/17 4033 Signed Impressions: Service Date/Time: Thursday, May 11, 2017 18:03 - CONCLUSION: No evidence of acute cardiopulmonary disease. Narinder Caban MD Objective Remarks GENERAL: NAD SKIN: Warm and dry. HEAD: Normocephalic. EYES: No scleral icterus. No injection or drainage. NECK: Supple, trachea midline. No JVD or lymphadenopathy. CARDIOVASCULAR: Regular rate and rhythm without murmurs, gallops, or rubs. RESPIRATORY: Breath sounds equal bilaterally. No accessory muscle use. GASTROINTESTINAL: Abdomen soft, mildly tender, nondistended. Positive bowel sounds MUSCULOSKELETAL: No cyanosis, or edema. BACK: Nontender without obvious deformity. No CVA tenderness. Procedures None A/P Problem List: (1) Recurrent acute pancreatitis ICD Code: K85.90 Status: Acute (2) Chest wall contusion ICD Code: S20.219A Status: Acute (3) Alcohol abuse ICD Code: F10.10 Status: Acute Assessment and Plan 41-year-old man with Recurrent acute pancreatitis-resolved Lipase now 255 Continue conservative management with nothing by mouth, aggressive IV fluid hydration, monitoring of calcium Continue parenteral pain medication to IV Toradol I Stressed the importance of alcohol cessation Start full liquid diet and advance as tolerated Chronic alcohol abuse Alcohol cessation counseling provided Continue rally pack, CIWA protocol, seizure precaution and Librium when necessary Tobacco abuse Tobacco cessation counseling provided Nicotine when necessary Bradycardia Secondary to medication side effect Telemetry monitoring Atypical chest pain Noncardiac, secondary to episode of emesis and likely secondary to GI ACS ruled out per protocol with serial cardiac enzyme and EKGs Thrombocytopenia Secondary to liver disease, monitor platelets Normochromic normocytic anemia-secondary to chronic disease H&H stable, continue to monitor DVT prophylaxis: Bilateral SCDs GI prophylaxis: PPI Problem Qualifiers (1) Chest wall contusion: Qualified Code: S20.212A - Chest wall contusion, left, initial encounter Mayco Machado MD May 13, 2017 09:50
[2017-05-13] MEDS ORDERED: MULTTAB67 PO (10:39)
[2017-05-13] MEDS ORDERED: GNP100TA3 PO (10:39)
[2017-05-13] MEDS ORDERED: ULTR50TA5 PO (10:42)
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
[2017-05-15] MEDS ORDERED: THIAMINE HCL 100 MG TAB PO SCH (09:00)
== END 2017-05-13 11:34 | disposition home or self-care (01) | DRG 440 ==
LOC: NEPD 17:41 → NEDA 19:45 → N07B 21:02
PROVIDERS: ADMIT Hospitalist; ATTEND Hospitalist
DX: K85.20 Alcohol induced acute pancreatitis without necrosis or infection (principal); D69.59 Other secondary thrombocytopenia; R00.1 Bradycardia, unspecified; F10.20 Alcohol dependence, uncomplicated; S20.212A Contusion of left front wall of thorax, initial encounter; D63.8 Anemia in other chronic diseases classified elsewhere; K21.9 Gastro-esophageal reflux disease without esophagitis; Z86.14 Personal history of Methicillin resistant Staphylococcus aureus infection; F17.210 Nicotine dependence, cigarettes, uncomplicated; Y04.2XXA Assault by strike against or bumped into by another person, initial encounter; G89.29 Other chronic pain; M54.9 Dorsalgia, unspecified; T40.2X5A Adverse effect of other opioids, initial encounter; K76.9 Liver disease, unspecified; Z90.81 Acquired absence of spleen
CPT/HCPCS: 71020; 80053; 82550; 82552; 82948; 83690; 83735; 84100; 84484; 85025; 85610; 85730; 93005; 94150; 96374; J1170; J1885; J2270; J2405; J3411; J7030; J7040

== ENCOUNTER 2017-07-04 20:09 | Inpatient (IN) | payer OTHER ==
[~2017-07-04] VITALS: Ht 182.9 cm; Wt 73.2 kg
[~2017-07-04 20:09] MED LIST changes: +GNP100TA3 PO; +MULTTAB67 PO; +ULTR50TA5 PO
[2017-07-04 21:20] VITALS: BP 119/77; PULSE 90; RESP 16; TEMP 99.1; O2SAT 97
[2017-07-04] MEDS ORDERED: SODIUM CHLOR 0.9% 1000 ML INJ 1,000 ML IV SCH (21:49)
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
[2017-07-04] MEDS ORDERED: VANCOMYCIN INJ 1,000 MG in SODIUM CHLOR 0.9% 250 ML INJ 250 ML IV ONE (22:00)
[2017-07-04] MEDS ORDERED: SODIUM CHLORIDE 0.9% FLUSH 10 ML FLUSH IV FLUSH PRN (22:00)
[2017-07-04] MEDS ORDERED: MORPHINE SULFATE 4 MG/ML INJ IV PUSH ONE (22:00)
[2017-07-04] MEDS ORDERED: ONDANSETRON HCL 4 MG/2 ML VIAL IVP ONE (22:00)
[2017-07-04 22:01] VITALS: O2SAT 96
[2017-07-04 22:17] LABS: APTT (PATIENT) 28.4 SEC (24.3-30.1); INTERNATIONAL NORMALIZED RATIO 0.9 RATIO
[2017-07-04 22:28] LABS: ANION GAP 8 MEQ/L (5-15); AST (GOT) 90 U/L (15-37); BICARBONATE 24.8 MEQ/L (21.0-32.0); BLOOD UREA NITROGEN 7 MG/DL (7-18); CHLORIDE 108 MEQ/L (98-107); GLOMERULAR FILTRATION RATE 127 ML/MIN (>89); SODIUM (NA) 141 MEQ/L (136-145)
--- NOTE | 2017-07-04 22:28 | RADRPT ---
EXAM DATE/TIME: 07/04/2017 22:09 [facility] COMPARISON: No previous studies available for comparison. INDICATIONS : Open sore on anterior surface of lower leg MEDICAL HISTORY : None. SURGICAL HISTORY : None. ENCOUNTER: Initial ACUITY: 3 weeks PAIN SCORE: 10/10 LOCATION: Right anterior surface of lower leg FINDINGS: The shaft of the tibia and fibula is intact. No focal bony destruction or periosteal reaction. The anterior soft tissues of the leg are normal in thickness and no soft tissue gas seen. There is mild thickening of the soft tissues about the medial lateral aspect of the ankle. A well-corticated bony fragment arises from the inferior patella measuring 1.4 cm. No associated soft tissue thickening. T he suprapatellar soft tissues are normal in thickness. CONCLUSION: 1. Osseous structures of the leg are intact. 2. Soft tissue thickening about the medial lateral aspect of the ankle, but no soft tissue thickening about the anterior leg. Aleksey Price MD on July 04, 2017 at 22:25 Board Certified Radiologist. This report was verified electronically.
[2017-07-04 22:29] LABS: ALT (GPT) 45 U/L (12-78)
[2017-07-04 22:31] LABS: ALKALINE PHOSPHATASE 58 U/L (45-117); TOTAL BILIRUBIN ADULT 0.2 MG/DL (0.2-1.0)
[2017-07-04 22:34] LABS: BASOPHIL # 0.1 TH/MM3 (0-0.2); BASOPHIL % 1.2 % (0.0-2.0); EOSINOPHIL # 0.1 TH/MM3 (0-0.4); EOSINOPHIL % 1.1 % (0.0-4.0); HEMATOCRIT 39.1 % (39.0-51.0); HEMO FLAGS DIFF FINAL; LYMPH % 17.5 % (9.0-44.0); LYMPHOCYTE # 1.6 TH/MM3 (1.0-4.8); MEAN CELL VOLUME 97.1 FL (80.0-100.0); MEAN CORPUSCULAR HEMOGLOBIN 31.8 PG (27.0-34.0); MEAN CORPUSCULAR HGB CONC 32.7 % (32.0-36.0); MONO % 13.6 % (0.0-8.0); NEUT % 66.6 % (16.0-70.0); PLATELET COUNT 122 TH/MM3 (150-450); RED BLOOD COUNT 4.03 MIL/MM3 (4.50-5.90); RED CELL DISTRIBUTION WIDTH 16.4 % (11.6-17.2)
[2017-07-04] MEDS ORDERED: PANTOPRAZOLE SODIUM 40 MG VIAL IVP ONE (23:30)
[2017-07-04] MEDS ORDERED: ALUMINUM/MAGNESIUM/SIMETH 30 ML CUP PO ONE (23:30)
[2017-07-04] MEDS ORDERED: LIDOCAINE VISCOUS 2% SOLN 15 ML UDC PO ONE (23:30)
[2017-07-05] VITALS (7 sets, daily range): BP systolic 113–154; BP diastolic 68–85; PULSE 50–74; RESP 16–20; TEMP 97.9–98.7; O2SAT 92–98
[2017-07-05] MEDS ORDERED: IOHEXOL 350 MG/ML 10 ML VIAL (for RAD DIAG) IV ONE (00:39)
--- NOTE | 2017-07-05 00:58 | RADRPT ---
EXAM DATE/TIME: 07/05/2017 00:25 [facility] COMPARISON: CT ABDOMEN & PELVIS W CONTRAST, February 25, 2017, 3:54. INDICATIONS : Abdominal pain. IV CONTRAST: 100 cc Omnipaque 350 (iohexol) IV ORAL CONTRAST: No oral contrast ingested. RADIATION DOSE: 6.64 CTDIvol (mGy) MEDICAL HISTORY : Gastroesophageal reflux disease. Pancreatitis. Ulcerative colitis. SURGICAL HISTORY : Splenectomy. ENCOUNTER: Initial ACUITY: 2 days PAIN SCALE: 8/10 LOCATION: diffuse abdomen TECHNIQUE: Volumetric scanning of the abdomen and pelvis was performed. Using automated exposure control and ad justment of the mA and/or kV according to patient size, radiation dose was kept as low as reasonably achievable to obtain optimal diagnostic quality images. DICOM format image data is available electro nically for review and comparison. FINDINGS: Examination of the lung bases demonstrates no abnormality. No pleural fluid is identified. No pulmona ry nodules are present. The liver is normal in size and free of focal defects. The spleen is surgical ly absent. There is thickening of the left hemidiaphragm with a 2.4 cm fluid collection which appears extraluminal to bowel. This was not seen on the prior study. This may reflect small abscess. This is not accessible to percutaneous drainage. The adrenal glands and kidneys appear normal bilaterally. N o hydronephrosis or mass lesions are identified. Examination of the right lower quadrant demonstrates no abnormality. The appendix is identified and appears normal. Examination of the pelvis demonstrates no evidence of free fluid or pelvic mass. No abnormally enlarg ed inguinal or retroperitoneal lymph nodes are present. The bladder is unremarkable. There is diverti culosis without evidence of diverticulitis. CONCLUSION: 1. Possible small abscess in the left upper quadrant at the site of prior splenectomy. This is not ac cessible to percutaneous drainage. Smith Pace MD on July 05, 2017 at 0:51 Board Certified Radiologist. This report was verified electronically.
--- NOTE | 2017-07-05 01:11 | PD ---
Physical Exam Time Seen by Provider: 01:00 Data Data Last Documented VS Vital Signs Date Time Temp Pulse Resp B/P Pulse Ox O2 Delivery O2 Flow Rate FiO2 07/04/17 22:01 96 Room Air 07/04/17 21:20 99.1 90 16 119/77 Orders Complete Blood Count With Diff (07/04/17 21:49) Comprehensive Metabolic Panel (07/04/17 21:49) Lipase (07/04/17 21:49) Prothrombin Time / Inr (Pt) (07/04/17 21:49) Act Partial Throm Time (Ptt) (07/04/17 21:49) Urinalysis - C+S If Indicated (07/04/17 21:49) Ct Abd/Pel W Iv Contrast(Rout) (07/04/17 21:49) Iv Access Insert/Monitor (07/04/17 21:49) Ecg Monitoring (07/04/17 21:49) Oximetry (07/04/17 21:49) Morphine Inj (Morphine Inj) (07/04/17 22:00) Ondansetron Inj (Zofran Inj) (07/04/17 22:00) Sodium Chlor 0.9% 1000 Ml Inj (Ns 1000 M (07/04/17 21:49) Sodium Chloride 0.9% Flush (Ns Flush) (07/04/17 22:00) Electrocardiogram (07/04/17 21:49) Alcohol (Ethanol) (07/04/17 21:49) Wound Culture And Gram Stain (07/04/17 21:49) Vancomycin Inj (Vancomycin Inj) (07/04/17 22:00) Tibia/Fibula (Ap/Lat) (07/04/17 ) Pantoprazole Inj (Protonix Inj) (07/04/17 23:30) Al-Mag Hy-Si 40-40-4 Mg/Ml Liq (Mag-Al P (07/04/17 23:30) Lidocaine 2% Viscous (Xylocaine 2% Visco (07/04/17 23:30) Iohexol 350 Inj (Omnipaque 350 Inj) (07/05/17 00:39) Labs Laboratory Tests Test 07/04/17 21:54 White Blood Count 9.0 TH/MM3 Red Blood Count 4.03 MIL/MM3 Hemoglobin 12.8 GM/DL Hematocrit 39.1 % Mean Corpuscular Volume 97.1 FL Mean Corpuscular Hemoglobin 31.8 PG Mean Corpuscular Hemoglobin 32.7 % Concent Red Cell Distribution Width 16.4 % Platelet Count 122 TH/MM3 Mean Platelet Volume 8.5 FL Neutrophils (%) (Auto) 66.6 % Lymphocytes (%) (Auto) 17.5 % Monocytes (%) (Auto) 13.6 % Eosinophils (%) (Auto) 1.1 % Basophils (%) (Auto) 1.2 % Neutrophils # (Auto) 6.0 TH/MM3 Lymphocytes # (Auto) 1.6 TH/MM3 Monocytes # (Auto) 1.2 TH/MM3 Eosinophils # (Auto) 0.1 TH/MM3 Basophils # (Auto) 0.1 TH/MM3 CBC Comment DIFF FINAL Differential Comment Prothrombin Time 10.0 SEC Prothromb Time International 0.9 RATIO Ratio Activated Partial 28.4 SEC Thromboplast Time Sodium Level 141 MEQ/L Potassium Level 4.0 MEQ/L Chloride Level 108 MEQ/L Carbon Dioxide Level 24.8 MEQ/L Anion Gap 8 MEQ/L Blood Urea Nitrogen 7 MG/DL Creatinine 0.68 MG/DL Estimat Glomerular Filtration 127 ML/MIN Rate Random Glucose 93 MG/DL Calcium Level 7.9 MG/DL Total Bilirubin 0.2 MG/DL Aspartate Amino Transf 90 U/L (AST/SGOT) Alanine Aminotransferase 45 U/L (ALT/SGPT) Alkaline Phosphatase 58 U/L Total Protein 7.4 GM/DL Albumin 3.1 GM/DL Lipase 264 U/L Ethyl Alcohol Level 297 MG/DL [facility] Medical Record Reviewed: Yes Supervised Visit with JOSE R: No Procedures Procedure Narrative INCISION AND DRAINAGE OF ABSCESS: The area was prepped and was sterilely draped. A number 11 scalpel is used to lift the nail fold off of the nail and allow the purulent drainage to be expressed. Cultures were obtained. The abscess was drained an irrigated with normal saline. Diagnosis Primary Impression: Acute alcohol intoxication Qualified Code: F10.929 - Acute alcoholic intoxication without complication Additional Impressions: Paronychia Cellulitis of right leg Scripts No Active Prescriptions or Reported Meds Stiven Butcher Jul 05, 2017 01:11
[2017-07-05] MEDS ORDERED: PIPERACIL-TAZO 4.5 GM PREMIX 100 ML IV ONE (01:15)
[2017-07-05] MEDS ORDERED: ACETAMINOPHEN 325 MG TAB PO PRN (01:30)
[2017-07-05] MEDS ORDERED: LORazepam 2 MG/ML VIAL IV PUSH PRN ×3 (01:30)
[2017-07-05] MEDS ORDERED: BISACODYL 10 MG SUPP RECTAL PRN (01:30)
[2017-07-05] MEDS ORDERED: HALOPERIDOL LACTATE 5 MG/ML AMP IM PRN (01:30)
[2017-07-05] MEDS ORDERED: SENNOSIDES 8.6 MG TAB PO PRN (01:30)
[2017-07-05] MEDS ORDERED: FLUMAZENIL 0.5 MG/5 ML VIAL IV PUSH PRN (01:30)
[2017-07-05] MEDS ORDERED: LORazepam 2 MG TAB PO PRN (01:30)
[2017-07-05] MEDS ORDERED: MAGNESIUM HYDROXIDE SUSP 30 ML CUP PO PRN (01:30)
[2017-07-05] MEDS ORDERED: LACTULOSE SYRUP 20 GM/30 ML CUP PO PRN (01:30)
[2017-07-05] MEDS ORDERED: SODIUM CHLORIDE 0.9% FLUSH 10 ML FLUSH IV FLUSH PRN (01:30)
[2017-07-05] MEDS ORDERED: ONDANSETRON HCL 4 MG/2 ML VIAL IVP PRN (01:30)
[2017-07-05] MEDS: SODIUM CHLOR 0.9% 1000 ML INJ 1,000 ML IV SCH ×3 (01:37→20:46)
[2017-07-05 04:38] LABS: BLOOD, URINE NEG (NEG); CALCIUM OXALATE CRYSTALS,URINE OCC /hpf; COMMENT (UR) CULT NOT INDICATED; CULTURE IF INDICATED CULT NOT INDICATED; GLUCOSE,URINE NEG (NEG); HYALINE CAST, URINE 2 /lpf (RARE); KETONE, URINE NEG (NEG); MUCUS URINE FEW /lpf (OCC); NITRITE,URINE NEG (NEG); PH, URINE 5.5 (5.0-8.5); URINE COLOR YELLOW (YELLW/STRAW)
--- NOTE | 2017-07-05 04:55 | HHI.HP ---
[facility] Service [facility] Primary Care Physician Helen Lance MD Admission Diagnosis intra-abdominal fluid collection, cellulitis, ETOH, paronychia Diagnoses: (1) Abdominal pain Diagnosis: Principal (2) Cellulitis Diagnosis: Principal (3) Tobacco abuse Diagnosis: Principal (4) Alcohol abuse Diagnosis: Principal Travel History International Travel<30 Days: No Contact w/Intl Traveler <30 Da: No Traveled to Known Affected Are: No History of Present Illness This is a 41-year-old male with a PMH of Alcohol Abuse, Recurrent Pancreatitis and Tobacco Abuse who presented to the ER with complaint of abdominal pain in addition to right leg wound x3 wks. Denies fever, chills, nausea or vomiting. On arrival, BP 119/77, HR 90, O2 sat 97% on RA, Temp 99.1. CBC at baseline. Platelets 122, previously 127 on 05/13/17. Chemistry essentially unremarkable. Lipase 264. INR 0.9. UA negative. Alcohol 297. Tib-fib X-ray with soft tissue thickening about medial lateral aspect of ankle. CT Abd/Pelvis w/ possible small abscess in left upper quadrant at site of prior splenectomy. Dr. Velarde consulted by ER physician, recommendation for observation with eval in a.m. S/p Wound Culture, Vanc/Zosyn in ER. Review of Systems Except as stated in HPI: all other systems reviewed are Neg ROS: 14 point review of systems otherwise negative. Past Family Social History Past Medical History PMH: Alcohol Abuse, Recurrent Pancreatitis and Tobacco Abuse Past Surgical History PAST SURGICAL HISTORY: Splenectomy, ORIF Tib Fib, Tonsillectomy Allergies: Coded Allergies: *MDRO Multi-Drug Resistant Organism (Verified Adverse Reaction, Unknown, ) Pt. stated HX of MRSA- MRSA PCR Screen negative 04/20/15. Family History PAST FAMILY HISTORY: Reviewed. No h/o DM or CAD Social History PAST SOCIAL HISTORY: Drinks daily. Smokes 1/2ppd. +Marijuana. Physical Exam Vital Signs Vital Signs Date Time Temp Pulse Resp B/P Pulse Ox O2 Delivery O2 Flow Rate FiO2 07/05/17 04:02 74 20 154/85 96 07/04/17 22:01 96 Room Air 07/04/17 21:20 99.1 90 16 119/77 97 Room Air Physical Exam PE: GENERAL: Middle-aged white male in no acute distress. Acutely intoxicated. HEENT: PERRLA, EOMI. No scleral icterus or conjunctival pallor. No lid lag or facial droop. CARDIOVASCULAR: Regular rate and rhythm. No obvious murmurs to auscultation. No chest tenderness to palpation. RESPIRATORY: No obvious rhonchi or wheezing. Clear to auscultation. Breath sounds equal bilaterally. GASTROINTESTINAL: Abdomen soft, generalized tenderness to palpation, nondistended. BS normal. MUSCULOSKELETAL: Extremities without clubbing, cyanosis, or edema. No obvious deformities. RLE w/ open wound, +purulent drainage. NEUROLOGICAL: Awake, alert and oriented x4. No focal neurologic deficits. Moving both upper and lower extremities spontaneously. Laboratory Laboratory Tests Test 07/04/17 07/05/17 21:54 04:02 White Blood Count 9.0 Red Blood Count 4.03 Hemoglobin 12.8 Hematocrit 39.1 Mean Corpuscular Volume 97.1 Mean Corpuscular Hemoglobin 31.8 Mean Corpuscular Hemoglobin 32.7 Concent Red Cell Distribution Width 16.4 Platelet Count 122 Mean Platelet Volume 8.5 Neutrophils (%) (Auto) 66.6 Lymphocytes (%) (Auto) 17.5 Monocytes (%) (Auto) 13.6 Eosinophils (%) (Auto) 1.1 Basophils (%) (Auto) 1.2 Neutrophils # (Auto) 6.0 Lymphocytes # (Auto) 1.6 Monocytes # (Auto) 1.2 Eosinophils # (Auto) 0.1 Basophils # (Auto) 0.1 CBC Comment DIFF FINAL Differential Comment Prothrombin Time 10.0 Prothromb Time International 0.9 Ratio Activated Partial 28.4 Thromboplast Time Sodium Level 141 Potassium Level 4.0 Chloride Level 108 Carbon Dioxide Level 24.8 Anion Gap 8 Blood Urea Nitrogen 7 Creatinine 0.68 Estimat Glomerular Filtration 127 Rate Random Glucose 93 Calcium Level 7.9 Total Bilirubin 0.2 Aspartate Amino Transf 90 (AST/SGOT) Alanine Aminotransferase 45 (ALT/SGPT) Alkaline Phosphatase 58 Total Protein 7.4 Albumin 3.1 Lipase 264 Ethyl Alcohol Level 297 Urine Color YELLOW Urine Turbidity HAZY Urine pH 5.5 Urine Specific [place] 1.030 Urine Protein 30 Urine Glucose (UA) NEG Urine Ketones NEG Urine Occult Blood NEG Urine Nitrite NEG Urine Bilirubin NEG Urine Urobilinogen 2.0 Urine Leukocyte Esterase NEG Urine RBC 1 Urine WBC 1 Urine Calcium Oxalate Crystals OCC Urine Hyaline Casts 2 Urine Mucus FEW Microscopic Urinalysis Comment CULT NOT INDICATED Date/Time Procedure Status Source Growth 07/05/17 01:52 Gram Stain Received Wound Finger Pending 07/05/17 01:52 Wound Culture Received Wound Finger Pending Result Diagram: 07/04/17215307/04/172153 Assessment and Plan Problem List: (1) Abdominal pain ICD Code: R10.9 Status: Acute (2) Cellulitis ICD Code: L03.90 Status: Acute (3) Alcohol abuse ICD Code: F10.10 Status: Acute (4) Tobacco abuse ICD Code: Z72.0 Status: Acute Assessment and Plan A/P: 1. Abdominal Pain: Lipase normal, CT Abd/Pelvis w/ possible small abscess as site of previous splenectomy, images reviewed by me. Dr. Velarde consulted by ER physician, ami goodman in am, unlikely surgical intervention. Analgesics/ antiemetics. 2. Cellulitis: RLE. +open wound w/ purulent drainage, Tib-Fib X-ray w/ soft tissue swelling, images reviewed by me. S/p Wound Culture, IV Vanc/Zosyn. Follow up cultures, continue IV Abx. 3. Alcohol Abuse: w/ Acute Alcohol Intoxication. CIWA, Seizure Precautions, MVT/Thiamine/Folate replacement. 4. Tobacco Abuse: Pt counselled. Ativan/NicoDerm prn if needed. 5. DVT Prophylaxis: Mechanical contraindication secondary to RLE wound. Pt ambulatory. 6. Social work for d/c planning as needed. 7. Case discussed at length w/ ER physician. Dolores Meléndez MD Jul 05, 2017 04:55
[2017-07-05] MEDS ORDERED: CLINDAMYCIN INJ 900 MG in SODIUM CHLORIDE 0.9% INJ 100 ML IV SCH (06:00)
[2017-07-05] MEDS: PIPERACIL-TAZO 4.5 GM PREMIX 100 ML IV SCH ×3 (08:45→20:32)
[2017-07-05] MEDS: SODIUM CHLORIDE 0.9% FLUSH 10 ML FLUSH IV FLUSH SCH ×2 (08:46→20:32)
[2017-07-05] MEDS: DOCUSATE SODIUM 50 MG/SENNA 8.6 MG TAB PO SCH ×2 (08:46→20:32)
[2017-07-05] MEDS: THIAMINE HCL 100 MG TAB PO SCH (08:46)
[2017-07-05] MEDS: FOLIC ACID 1 MG TAB PO SCH (08:46)
[2017-07-05] MEDS: MULTIVITAMINS/MINERALS THERAPEUTIC TAB PO SCH (08:46)
[2017-07-05] MEDS: LORazepam 1 MG TAB PO PRN ×3 (09:46→22:45)
--- NOTE | 2017-07-05 11:47 | HHI.PR ---
Subjective Remarks Follow up for abdominal pain and right leg wound/cellulitis. The patient reports feeling slightly better today, still with some diffuse abdominal discomfort however denies nausea/vomiting. Reports subjective fevers and sweats , no documented fevers overnight. He has continued pain at right anterior leg wound with surrounding erythema/edema. He also reports feeling tremulous, states he drinks a heavy amount of alcohol daily and has experienced withdrawals in the past; denies seizure. Denies current hallucinations. Objective Vitals Vital Signs Date Time Temp Pulse Resp B/P Pulse Ox O2 Delivery O2 Flow Rate FiO2 07/05/17 08:55 98.4 66 18 127/78 92 07/05/17 05:00 98.1 72 16 113/68 95 07/05/17 04:02 74 20 154/85 96 07/04/17 22:01 96 Room Air 07/04/17 21:20 99.1 90 16 119/77 97 Room Air I/O 07/04/17 07/04/17 07/04/17 07/05/17 07/05/17 07/05/17 07:00 15:00 23:00 07:00 15:00 23:00 Intake Total 250 ml Balance 250 ml Intake Oral 250 ml Result Diagram: 07/04/17215307/04/172153 Imaging Last Impressions Abdomen/Pelvis CT 07/04/172148 Signed Impressions: Service Date/Time: Wednesday, July 05, 2017 00:25 - CONCLUSION: 1. Possible small abscess in the left upper quadrant at the site of prior splenectomy. This is not accessible to percutaneous drainage. Smith Pace MD Tibia/Fibula X-Ray 07/04/17 0000 Signed Impressions: Service Date/Time: Tuesday, July 04, 2017 22:09 - CONCLUSION: 1. Osseous structures of the leg are intact. 2. Soft tissue thickening about the medial lateral aspect of the ankle, but no soft tissue thickening about the anterior leg. Aleksey Price MD Objective Remarks GENERAL: Well-nourished, well-developed middle aged male patient in NAD. Tremulous. SKIN: Warm and dry. No rash. HEENT: Normocephalic. Atraumatic.Pupils equal and round. Mucous membranes pink and moist. NECK: Supple. Trachea midline. CARDIOVASCULAR: Regular rate and rhythm. S1, S2 noted. No murmur appreciated. RESPIRATORY: No accessory muscle use. Clear to auscultation. Breath sounds equal bilaterally. GASTROINTESTINAL: Abdomen soft, nondistended, mild diffuse tenderness to palpation, worse at left upper and lower quadrants. Normoactive bowel sounds x4. MUSCULOSKELETAL: No obvious deformities. Extremities without clubbing, cyanosis , or edema. RLE anterior robbins with open wound, surrounding erythema/edema, no active drainage. NEUROLOGICAL: Awake and alert. No obvious cranial nerve deficits. Motor grossly within normal limits. Normal speech. PSYCHIATRIC: Appropriate mood and affect; insight and judgment normal. Medications and IVs Current Medications Medications (Trade) Dose Ordered Sig/Ventura Route Start Time Stop Time Status Last Admin (NS Flush) 2 ml UNSCH PRN IV FLUSH 07/04/17 22:00 (Folate) 1 mg DAILY PO 07/05/17 09:00 07/10/17 08:59 07/05/17 08:46 (Vitamin B1) 100 mg DAILY PO 07/05/17 09:00 07/05/17 08:46 (Theragran M Tab) 1 tab DAILY PO 07/05/17 09:00 07/10/17 08:59 07/05/17 08:46 (Romazicon Inj) 0.2 mg Q1M PRN IV PUSH 07/05/17 01:30 (Ativan) 1 mg Q4H PRN PO 07/05/17 01:30 07/05/17 09:46 (Ativan Inj) 1 mg Q4H PRN IV PUSH 07/05/17 01:30 (Ativan) 2 mg Q2H PRN PO 07/05/17 01:30 (Ativan Inj) 2 mg Q2H PRN IV PUSH 07/05/17 01:30 (Ativan Inj) 2 mg Q1H PRN IV PUSH 07/05/17 01:30 (Ativan Inj) 2 mg Q15M PRN IV PUSH 07/05/17 01:30 07/05/17 01:37 Haloperidol Lactate 2 mg 2 mg Q15M PRN IM 07/05/17 01:30 Piperacillin Sod/ Tazobactam Sod 100 ml @ 200 mls/hr Q6H IV 07/05/17 08:00 07/05/17 08:45 (NS 1000 ml Inj) 1,000 ml @ 100 mls/hr Q10H IV 07/05/17 01:18 07/05/17 10:24 (NS Flush) 2 ml UNSCH PRN IV FLUSH 07/05/17 01:30 (NS Flush) 2 ml BID IV FLUSH 07/05/17 09:00 (Zofran Inj) 4 mg Q6H PRN IVP 07/05/17 01:30 (Tylenol) 650 mg Q6H PRN PO 07/05/17 01:30 (Roxicodone) 10 mg Q4H PRN PO 07/05/17 01:30 07/05/17 08:45 (Roxicodone) 5 mg Q4H PRN PO 07/05/17 01:30 07/05/17 02:20 (Alaina-Colace) 1 tab BID PO 07/05/17 09:00 (Milk Of Magnesia Liq) 30 ml Q12H PRN PO 07/05/17 01:30 (Senokot) 17.2 mg Q12H PRN PO 07/05/17 01:30 (Dulcolax Supp) 10 mg DAILY PRN RECTAL 07/05/17 01:30 Lactulose 30 ml 30 ml DAILY PRN PO 07/05/17 01:30 (Cleocin Inj/NS Inj) 106 ml @ 212 mls/hr Q8H IV 07/05/17 06:00 07/05/17 06:29 (Pneumovax-23 Inj) 25 mcg ONCE ONCE IM 07/06/17 09:00 07/06/17 09:01 A/P Problem List: (1) Abdominal pain ICD Code: R10.9 Status: Acute (2) Cellulitis ICD Code: L03.90 Status: Acute (3) Alcohol abuse ICD Code: F10.10 Status: Acute (4) Tobacco abuse ICD Code: Z72.0 Status: Acute Assessment and Plan 41-year-old homeless male with a PMH of Alcohol Abuse, Recurrent Pancreatitis and Tobacco Abuse who presented to the ER with complaint of abdominal pain in addition to right leg wound x3 wks. Abdominal Pain: Lipase normal. CT Abd/Pelvis images reviewed, shows possible small abscess as site of previous splenectomy. General surgery consulted. Start on protonix. Analgesics/antiemetics as needed. Diet as tolerated. Symptoms improving. Cellulitis: RLE. +open wound w/ purulent drainage, Tib-Fib X-ray w/ soft tissue swelling, images reviewed by me. Monitor Wound Culture. Continue IV Clinda/Zosyn. Likely transition to po antibiotics tomorrow if continued improvement. Alcohol Abuse: presented with Acute Alcohol Intoxication, now with Alcohol Withdrawal. Continue CIWA, Seizure Precautions, MVT/Thiamine/Folate replacement. Tobacco Abuse: Pt counselled. Ativan/NicoDerm prn if needed. DVT Prophylaxis: Mechanical contraindication secondary to RLE wound. Pt is ambulatory. Discharge Planning 1130hrs: Likely discharge tomorrow if symptoms continue to improve. Patient is homeless. Case management to assist with discharge planning. Taina Giron PA-C Jul 05, 2017 11:47 am
[2017-07-05] MEDS: PANTOPRAZOLE SOD 40 MG DELAYED RELEASE TAB PO SCH (11:53)
--- NOTE | 2017-07-05 13:20 | EKG ---
Date Performed: 07/04/2017 Time Performed: 22:23:21 PTAGE: 41 years EKG: Sinus rhythm NORMAL ECG PREVIOUS TRACING : 05/11/2017 20.28 Since previous tracing, no significant change noted DOCTOR: Court Bogres Interpretating Date/Time 07/05/2017 13:18:46
--- NOTE | 2017-07-05 22:19 | MB ---
cc: BERONICA CARPENTER MD DATE OF CONSULTATION 07/05/17 REASON FOR CONSULTATION Small intra-abdominal fluid collection. HISTORY OF PRESENT ILLNESS The patient is a 41-year-old male with a previous history of alcohol abuse, pancreatitis, history of trauma ex-lap for splenectomy in 2013. The patient presents with acute onset of abdominal pain. The patient states the pain started approximately 2 days ago primarily complaining of pain that is in the supraumbilical area right at the scar incision, however, states pain somewhat diffuse. He has noted the pain again, onset was 2 days ago, continued to get worse. He states he has never had pain quite like this before and the pain is a 6 out of 10 at its worst and currently a 4 out of 10. He has some improvement with IV pain medication. The patient also admitted with complaints of right lower extremity pain. He noted to have a scab and lesion with cellulitis to the right medial leg which has been going on for approximately 2 weeks. Surgery was consulted after further workup and evaluation with a CT scan showing a small fluid collection where previous spleen used to be, up by left diaphragm. The patient denies significant fevers or chills. The patient is again noted to have past history of pancreatitis with alcohol abuse. PAST MEDICAL HISTORY Recurrent pancreatitis, tobacco and EtOH abuse. PAST SURGICAL HISTORY Splenectomy, ORIF of tibial/fibula, tonsillectomy. ALLERGIES No known drug allergies. MEDICATIONS See EMR. FAMILY HISTORY Denies diabetes, hypertension. SOCIAL HISTORY Daily drinking. Smokes half a pack a day. Positive THC. REVIEW OF SYSTEMS GENERAL: The patient denies fevers or chills. HEENT: Denies eye pain or ear pain. NECK: Denies swelling or pain. RESPIRATION: Denies cough or wheeze. CARDIAC: Denies palpitations or chest pain. ABDOMEN: Complained of abdominal pain. Positive nausea, vomiting and diarrhea. ENDOCRINE: Denies polyuria, polydipsia. : Denies dysuria, hematuria. NEUROLOGIC: Denies numbness, tingling. PHYSICAL EXAMINATION GENERAL: The patient no acute distress. VITAL SIGNS: Temperature 99.1, pulse 90, respirations 16, blood pressure 119/77, saturation 97%. HEENT: PERRLA, pupils are equal, round, reactive, atraumatic, normocephalic. NECK: Supple. Trachea midline. LUNGS: Clear to auscultation bilateral. No wheeze. HEART: S1-S2 regular. ABDOMEN: Soft, positive tenderness to palpation at a previous midline laparotomy incision. Also, diffuse mild tenderness all four quadrants. No rebound or guarding. No peritoneal signs. EXTREMITIES: Warm, well-perfused. Right lower extremity 3 x 3 cm open wound with cellulitic medial aspect of leg PSYCH: Anxiety, alcohol abuse, normal mentation. NEUROLOGIC: GCS of 15. LABORATORY AND DIAGNOSTIC DATA WBC 9, hemoglobin 12.8, hematocrit 39.1, platelets 122, sodium 141, potassium 4, chloride 108, BUN 7, creatinine 0.68, calcium 7.9, AST 90, ALT 45, alkaline phos is 58, albumin 3.1, lipase 264, INR is 0.9. CT reviewed by myself showing small fluid left upper quadrant, 2.4 cm. ASSESSMENT The patient is a 41-year-old male who presents with abdominal pain, small fluid collection left upper quadrant under diaphragm where previous spleen was, 2.4 cm, diffuse abdominal pain, right lower extremity pain consistent with cellulitis and cellulitic infection. PLAN After full workup the patient with above-named issues. The patient does have small fluid collection that appears to be extraluminal in previous splenic cavity. At this point the patient is afebrile, has a normal white blood cell count and has mild pain diffusely. I favor some sort of a gastroenteritis as the patient does have significant diarrhea and nausea, vomiting along with this, more so than this fluid causing any significant etiology to the patient's pain. However, if the patient's white count is increasing, if his left upper quadrant pain does get more severe or if he does spike high fevers would recommend possible repeat CT scan to evaluate to see if any increase size and fluid collection. Currently, recommend IV antibiotics, both for the right lower extremity cellulitis and would benefit this fluid collection for antibiotics as well. This was discussed with the patient and staffing in detail. He stated understanding. We will continue with nonoperative management and observation. MD DAVID Nicolas/MEGAN /9:31 PM /9:55 PM BILL
[2017-07-06 00:35] VITALS: BP 126/86; PULSE 64; RESP 20; TEMP 97.7; O2SAT 97
[2017-07-06] MEDS: PIPERACIL-TAZO 4.5 GM PREMIX 100 ML IV SCH ×4 (01:21→19:36)
[2017-07-06] MEDS: SODIUM CHLOR 0.9% 1000 ML INJ 1,000 ML IV SCH ×2 (01:24→17:18)
[2017-07-06 08:00] VITALS: BP 140/84; PULSE 53; RESP 18; TEMP 97.6; O2SAT 96
[2017-07-06] MEDS: PANTOPRAZOLE SOD 40 MG DELAYED RELEASE TAB PO SCH (08:04)
[2017-07-06] MEDS: FOLIC ACID 1 MG TAB PO SCH (08:04)
[2017-07-06] MEDS: DOCUSATE SODIUM 50 MG/SENNA 8.6 MG TAB PO SCH ×2 (08:04→19:37)
[2017-07-06] MEDS: MULTIVITAMINS/MINERALS THERAPEUTIC TAB PO SCH (08:04)
[2017-07-06] MEDS: THIAMINE HCL 100 MG TAB PO SCH (08:04)
[2017-07-06] MEDS: LORazepam 2 MG/ML VIAL IV PUSH PRN ×3 (08:14→17:59)
[2017-07-06] MEDS ORDERED: PNEUMOCOCCAL POLYVALENT INJ 25 MCG/0.5 ML SYR IM ONE (09:00)
[2017-07-06] MEDS: SODIUM CHLORIDE 0.9% FLUSH 10 ML FLUSH IV FLUSH SCH ×2 (09:00→19:36)
[2017-07-06 11:57] LABS: AUTOMATED NEUTROPHIL # 5.5 TH/MM3 (1.8-7.7); BASOPHIL # 0.1 TH/MM3 (0-0.2); EOSINOPHIL % 0.5 % (0.0-4.0); HEMO FLAGS DIFF FINAL; LYMPH % 13.2 % (9.0-44.0); MEAN CELL VOLUME 95.1 FL (80.0-100.0); MEAN CORPUSCULAR HGB CONC 33.6 % (32.0-36.0); MONO % 13.6 % (0.0-8.0); NEUT % 71.7 % (16.0-70.0); PLATELET COUNT 108 TH/MM3 (150-450); RED BLOOD COUNT 4.21 MIL/MM3 (4.50-5.90); RED CELL DISTRIBUTION WIDTH 15.8 % (11.6-17.2); WHITE BLOOD COUNT 7.6 TH/MM3 (4.0-11.0)
[2017-07-06 12:00] VITALS: BP 136/84; PULSE 63; RESP 18; TEMP 98.2; O2SAT 98
[2017-07-06 12:20] LABS: ALT (GPT) 36 U/L (12-78); ANION GAP 8 MEQ/L (5-15); AST (GOT) 48 U/L (15-37); BICARBONATE 28.1 MEQ/L (21.0-32.0); BLOOD UREA NITROGEN 3 MG/DL (7-18); CHLORIDE 101 MEQ/L (98-107); GLOMERULAR FILTRATION RATE 112 ML/MIN (>89); POTASSIUM 3.7 MEQ/L (3.5-5.1); SODIUM (NA) 137 MEQ/L (136-145)
[2017-07-06 12:23] LABS: ALKALINE PHOSPHATASE 56 U/L (45-117); TOTAL BILIRUBIN ADULT 0.6 MG/DL (0.2-1.0)
--- NOTE | 2017-07-06 14:10 | HHI.PR ---
Subjective Remarks Follow up for abdominal pain, nausea/vomiting, and right leg cellulitis. The patient reports feeling tremulous today with some nausea, no vomiting. He is tolerating oral intake, eating all of his meals. Reports 3 episodes of diarrhea overnight. Denies fevers but does report chills and sweats last night. He reports continued pain at right leg cellulitis with some bloody drainage. Denies any other medical complaints at this time. Objective Vitals Vital Signs Date Time Temp Pulse Resp B/P Pulse Ox O2 Delivery O2 Flow Rate FiO2 07/06/17 12:00 98.2 63 18 136/84 98 07/06/17 08:00 97.6 53 18 140/84 96 07/06/17 00:35 97.7 64 20 126/86 97 07/05/17 22:15 98.7 52 18 127/80 97 07/05/17 19:29 97.9 65 20 139/77 98 07/05/17 17:18 98.5 50 18 131/74 96 I/O 07/05/17 07/05/17 07/05/17 07/06/17 07/06/17 07/06/17 07:00 15:00 23:00 07:00 15:00 23:00 Intake Total 250 ml 1924 ml Output Total 910 ml 300 ml Balance 250 ml 1014 ml -300 ml Intake Oral 250 ml 954 ml IV Total 970 ml Output Urine Total 910 ml 300 ml Result Diagram: 07/06/17 1043 07/06/17 1043 Imaging Last Impressions Abdomen/Pelvis CT 07/04/17 2149 Signed Impressions: Service Date/Time: Wednesday, July 05, 2017 00:25 - CONCLUSION: 1. Possible small abscess in the left upper quadrant at the site of prior splenectomy. This is not accessible to percutaneous drainage. Smith Pace MD Tibia/Fibula X-Ray 07/04/17 0000 Signed Impressions: Service Date/Time: Tuesday, July 04, 2017 22:09 - CONCLUSION: 1. Osseous structures of the leg are intact. 2. Soft tissue thickening about the medial lateral aspect of the ankle, but no soft tissue thickening about the anterior leg. Aleksey Price MD Objective Remarks GENERAL: Well-nourished, well-developed middle aged male patient in NAD. Tremulous. SKIN: Warm and dry. No rash. HEENT: Normocephalic. Atraumatic.Pupils equal and round. Mucous membranes pink and moist. CARDIOVASCULAR: Regular rate and rhythm. S1, S2 noted. No murmur appreciated. RESPIRATORY: No accessory muscle use. Clear to auscultation. Breath sounds equal bilaterally. GASTROINTESTINAL: Abdomen soft, nondistended, mild epigastric TTP. Normoactive bowel sounds x4. MUSCULOSKELETAL: No obvious deformities. Extremities without clubbing, cyanosis , or edema. RLE anterior robbins with open wound, surrounding mild erythema/edema, mild bloody drainage. NEUROLOGICAL: Awake and alert. No obvious cranial nerve deficits. Motor grossly within normal limits. Normal speech. PSYCHIATRIC: Appropriate mood and affect; insight and judgment normal. Medications and IVs Current Medications Medications (Trade) Dose Ordered Sig/Ventura Route Start Time Stop Time Status Last Admin (NS Flush) 2 ml UNSCH PRN IV FLUSH 07/04/17 22:00 (Folate) 1 mg DAILY PO 07/05/17 09:00 07/10/17 08:59 07/06/17 08:04 (Vitamin B1) 100 mg DAILY PO 07/05/17 09:00 07/06/17 08:04 (Theragran M Tab) 1 tab DAILY PO 07/05/17 09:00 07/10/17 08:59 07/06/17 08:04 (Romazicon Inj) 0.2 mg Q1M PRN IV PUSH 07/05/17 01:30 (Ativan) 1 mg Q4H PRN PO 07/05/17 01:30 07/05/17 22:45 (Ativan Inj) 1 mg Q4H PRN IV PUSH 07/05/17 01:30 (Ativan) 2 mg Q2H PRN PO 07/05/17 01:30 (Ativan Inj) 2 mg Q2H PRN IV PUSH 07/05/17 01:30 07/06/17 13:20 (Ativan Inj) 2 mg Q1H PRN IV PUSH 07/05/17 01:30 (Ativan Inj) 2 mg Q15M PRN IV PUSH 07/05/17 01:30 07/05/17 01:37 Haloperidol Lactate 2 mg 2 mg Q15M PRN IM 07/05/17 01:30 Piperacillin Sod/ Tazobactam Sod 100 ml @ 200 mls/hr Q6H IV 07/05/17 08:00 07/06/17 13:20 (NS 1000 ml Inj) 1,000 ml @ 100 mls/hr Q10H IV 07/05/17 01:18 07/06/17 01:24 (NS Flush) 2 ml UNSCH PRN IV FLUSH 07/05/17 01:30 (NS Flush) 2 ml BID IV FLUSH 07/05/17 09:00 07/06/17 09:00 (Zofran Inj) 4 mg Q6H PRN IVP 07/05/17 01:30 (Tylenol) 650 mg Q6H PRN PO 07/05/17 01:30 (Roxicodone) 10 mg Q4H PRN PO 07/05/17 01:30 07/06/17 12:06 (Roxicodone) 5 mg Q4H PRN PO 07/05/17 01:30 07/05/17 02:20 (Alaina-Colace) 1 tab BID PO 07/05/17 09:00 07/06/17 08:04 (Milk Of Magnesia Liq) 30 ml Q12H PRN PO 07/05/17 01:30 (Senokot) 17.2 mg Q12H PRN PO 07/05/17 01:30 (Dulcolax Supp) 10 mg DAILY PRN RECTAL 07/05/17 01:30 (Lactulose Liq) 30 ml DAILY PRN PO 07/05/17 01:30 (Protonix) 40 mg DAILY PO 07/05/17 11:45 07/06/17 08:04 A/P Problem List: (1) Abdominal pain ICD Code: R10.9 Status: Acute (2) Cellulitis ICD Code: L03.90 Status: Acute (3) Alcohol abuse ICD Code: F10.10 Status: Acute (4) Tobacco abuse ICD Code: Z72.0 Status: Acute Assessment and Plan 41-year-old homeless male with a PMH of Alcohol Abuse, Recurrent Pancreatitis and Tobacco Abuse who presented to the ER with complaint of abdominal pain in addition to right leg wound x3 wks. Gastroenteritis: presented with abdominal pain/N/V/diarrhea. Lipase wnl. CT Abd/ Pelvis images reviewed, shows possible small abscess as site of previous splenectomy. General surgery consulted, recommends continuing antibiotics and monitor. Started on protonix. Analgesics/antiemetics as needed. Diet as tolerated. Symptoms improving. Still with diarrhea, check stool studies, C.diff. Cellulitis: RLE. +open wound w/ purulent drainage, Tib-Fib X-ray w/ soft tissue swelling, images reviewed by me. Preliminary Wound Culture with Group A strep and Staph aureus (susceptibility to follow). Continue IV Clinda/Zosyn for now. Likely can transition to po antibiotics tomorrow if continued improvement. Alcohol Abuse with Acute Alcohol Withdrawal: patient tremulous on exam with GI symptoms as above. Continue CIWA, Seizure Precautions, MVT/Thiamine/Folate replacement. Tobacco Abuse: Pt counselled. Ativan/NicoDerm prn if needed. DVT Prophylaxis: Mechanical contraindication secondary to RLE wound. Pt is ambulatory. Discharge Planning Likely discharge tomorrow if symptoms continue to improve. Patient is homeless. Case management to assist with discharge planning. Will likely need assistance obtaining prescriptions at discharge. Taina Giron PA-C Jul 06, 2017 2:10 pm
[2017-07-06 16:00] VITALS: BP 125/81; PULSE 64; RESP 18; TEMP 97.7; O2SAT 98
[2017-07-06 19:13] LABS: C. DIFF EPI 027 PRESUMPTIVE NEGATIVE (NEGATIVE); C. DIFF TOXIN PCR NEGATIVE (NEGATIVE)
[2017-07-06 20:00] VITALS: BP 129/79; PULSE 73; RESP 18; TEMP 97.1; O2SAT 98
[2017-07-07] VITALS: BP 133/82; PULSE 61; RESP 18; TEMP 96.5; O2SAT 98
[2017-07-07] MEDS: PIPERACIL-TAZO 4.5 GM PREMIX 100 ML IV SCH ×3 (02:39→13:07)
[2017-07-07] MEDS: SODIUM CHLOR 0.9% 1000 ML INJ 1,000 ML IV SCH ×3 (06:31→20:15)
[2017-07-07 08:00] VITALS: BP 118/80; PULSE 78; RESP 18; TEMP 97.9; O2SAT 97
[2017-07-07] MEDS: FOLIC ACID 1 MG TAB PO SCH (08:29)
[2017-07-07] MEDS: MULTIVITAMINS/MINERALS THERAPEUTIC TAB PO SCH (08:29)
[2017-07-07] MEDS: SODIUM CHLORIDE 0.9% FLUSH 10 ML FLUSH IV FLUSH SCH ×2 (08:30→20:09)
[2017-07-07] MEDS: THIAMINE HCL 100 MG TAB PO SCH (08:30)
[2017-07-07] MEDS: DOCUSATE SODIUM 50 MG/SENNA 8.6 MG TAB PO SCH ×2 (08:30→20:09)
[2017-07-07] MEDS: PANTOPRAZOLE SOD 40 MG DELAYED RELEASE TAB PO SCH (08:30)
[2017-07-07] MEDS: LORazepam 2 MG/ML VIAL IV PUSH PRN (08:34)
[2017-07-07] MEDS ORDERED: NICOTINE 21 MG/24 HR PATCH T-DERMAL ONE (10:00)
[2017-07-07 12:00] VITALS: BP 134/84; PULSE 71; RESP 18; TEMP 97; O2SAT 98
[2017-07-07] MEDS: ACETAMINOPHEN/HYDROcodone 325 MG/7.5 MG TAB PO PRN ×2 (13:07→20:07)
--- NOTE | 2017-07-07 13:27 | HHI.PR ---
Subjective Remarks Follow up for abdominal pain, nausea/vomiting, and right leg cellulitis. Patient is currently doing well. No fever, chills. Ambulating well. Tolerating diet well. Objective Vitals Vital Signs Date Time Temp Pulse Resp B/P Pulse Ox O2 Delivery O2 Flow Rate FiO2 07/07/17 08:00 97.9 78 18 118/80 97 07/07/17 00:00 96.5 61 18 133/82 98 07/06/17 20:00 97.1 73 18 129/79 98 07/06/17 16:00 97.7 64 18 125/81 98 I/O 07/06/17 07/06/17 07/06/17 07/07/17 07/07/17 07/07/17 07:00 15:00 23:00 07:00 15:00 23:00 Intake Total 480 ml 1030 ml 990 ml Output Total 300 ml Balance -300 ml 480 ml 1030 ml 990 ml Intake Oral 480 ml 480 ml 240 ml IV Total 550 ml 750 ml Output Urine Total 300 ml # Voids 3 2 1 # Bowel Movements 2 0 Result Diagram: 07/06/17 1043 07/06/17 1043 Imaging Last Impressions Abdomen/Pelvis CT 07/04/17 2149 Signed Impressions: Service Date/Time: Wednesday, July 05, 2017 00:25 - CONCLUSION: 1. Possible small abscess in the left upper quadrant at the site of prior splenectomy. This is not accessible to percutaneous drainage. Smith Pace MD Tibia/Fibula X-Ray 07/04/17 0000 Signed Impressions: Service Date/Time: Tuesday, July 04, 2017 22:09 - CONCLUSION: 1. Osseous structures of the leg are intact. 2. Soft tissue thickening about the medial lateral aspect of the ankle, but no soft tissue thickening about the anterior leg. Aleksey Price MD Objective Remarks GENERAL: AOX3, NAD. SKIN: Warm and dry. HEAD: Normocephalic. EYES: No scleral icterus. No injection or drainage. NECK: Supple, trachea midline. No JVD or lymphadenopathy. CARDIOVASCULAR: Regular rate and rhythm without murmurs, gallops, or rubs. RESPIRATORY: Breath sounds equal bilaterally. No accessory muscle use. GASTROINTESTINAL: Abdomen soft, non-tender, nondistended. MUSCULOSKELETAL: No cyanosis, or edema. BACK: Nontender without obvious deformity. No CVA tenderness. Procedures None. A/P Problem List: (1) Abdominal pain ICD Code: R10.9 Status: Acute (2) Cellulitis ICD Code: L03.90 Status: Acute (3) Alcohol abuse ICD Code: F10.10 Status: Acute (4) Tobacco abuse ICD Code: Z72.0 Status: Acute Assessment and Plan 41-year-old homeless male with a PMH of Alcohol Abuse, Recurrent Pancreatitis and Tobacco Abuse who presented to the ER with complaint of abdominal pain in addition to right leg wound x3 wks. Gastroenteritis: presented with abdominal pain/N/V/diarrhea. Lipase wnl. CT Abd/ Pelvis images reviewed, shows possible small abscess as site of previous splenectomy. General surgery consulted, recommends continuing antibiotics and monitor. Started on protonix. Analgesics/antiemetics as needed. Diet as tolerated. Symptoms improving. C. Diff negative. Cellulitis: RLE. +open wound w/ purulent drainage, Tib-Fib X-ray w/ soft tissue swelling, images reviewed by me. Preliminary Wound Culture with Group A strep and Staph aureus (susceptibility to follow). - Will switch abx to Levaquin and Flagyl PO. This should cover both strep and MSSA as well as intra-abdominal small abscess. - If Patient remains afebrile, we will consider discharging him on 07/08/2017. Alcohol Abuse with Acute Alcohol Withdrawal: patient tremulous on exam with GI symptoms as above. Continue CIWA, Seizure Precautions, MVT/Thiamine/Folate replacement. Tobacco Abuse: Pt counselled. Ativan/NicoDerm prn if needed. DVT Prophylaxis: Mechanical contraindication secondary to RLE wound. Pt is ambulatory. Margarita Phelps DO Jul 07, 2017 13:27
[2017-07-07] MEDS: metroNIDAZOLE 500 MG TAB PO SCH ×2 (13:52→20:06)
[2017-07-07] MEDS: LEVOFLOXACIN 500 MG TAB PO SCH (13:53)
[2017-07-07 16:00] VITALS: BP 131/85; PULSE 66; RESP 18; TEMP 98.3; O2SAT 98
[2017-07-07 20:00] VITALS: BP 140/83; PULSE 63; RESP 18; TEMP 98.5; O2SAT 96
[2017-07-07] MEDS: LORazepam 1 MG TAB PO PRN (20:14)
[2017-07-08] VITALS: BP 124/84; PULSE 64; RESP 18; TEMP 98.2; O2SAT 97
[2017-07-08] MEDS: ACETAMINOPHEN/HYDROcodone 325 MG/7.5 MG TAB PO PRN ×3 (02:11→17:32)
[2017-07-08] MEDS: metroNIDAZOLE 500 MG TAB PO SCH ×3 (05:45→20:35)
[2017-07-08 08:00] VITALS: BP 132/80; PULSE 81; RESP 18; TEMP 98.5; O2SAT 96
[2017-07-08] MEDS: MULTIVITAMINS/MINERALS THERAPEUTIC TAB PO SCH (08:25)
[2017-07-08] MEDS: LEVOFLOXACIN 500 MG TAB PO SCH (08:25)
[2017-07-08] MEDS: PANTOPRAZOLE SOD 40 MG DELAYED RELEASE TAB PO SCH (08:26)
[2017-07-08] MEDS: FOLIC ACID 1 MG TAB PO SCH (08:26)
[2017-07-08] MEDS: SODIUM CHLORIDE 0.9% FLUSH 10 ML FLUSH IV FLUSH SCH ×2 (08:26→20:36)
[2017-07-08] MEDS: THIAMINE HCL 100 MG TAB PO SCH (08:26)
[2017-07-08] MEDS: SODIUM CHLOR 0.9% 1000 ML INJ 1,000 ML IV SCH ×2 (08:26→19:18)
[2017-07-08] MEDS: DOCUSATE SODIUM 50 MG/SENNA 8.6 MG TAB PO SCH ×2 (08:26→20:35)
[2017-07-08] MEDS: NICOTINE 21 MG/24 HR PATCH T-DERMAL SCH (08:26)
[2017-07-08] MEDS: REMOVE OLD PATCH T-DERMAL SCH (08:27)
[2017-07-08 12:00] VITALS: BP 127/80; PULSE 89; RESP 18; TEMP 96.6; O2SAT 99
--- NOTE | 2017-07-08 15:09 | HHI.PR ---
Subjective Remarks Follow up for abdominal pain, nausea/vomiting, and right leg cellulitis. No fever, chills. However, he complains of a pain from left side of the abdomen to the left side of the chest. He also reports some bloody drainage from the right lower ext wound. Objective Vitals Vital Signs Date Time Temp Pulse Resp B/P Pulse Ox O2 Delivery O2 Flow Rate FiO2 07/08/17 12:00 96.6 89 18 127/80 99 07/08/17 08:00 98.5 81 18 132/80 96 07/08/17 00:00 98.2 64 18 124/84 97 07/07/17 20:00 98.5 63 18 140/83 96 07/07/17 16:00 98.3 66 18 131/85 98 I/O 07/07/17 07/07/17 07/07/17 07/08/17 07/08/17 07/08/17 07:00 15:00 23:00 07:00 15:00 23:00 Intake Total 990 ml 1642 ml 360 ml 1880 ml 720 ml Balance 990 ml 1642 ml 360 ml 1880 ml 720 ml Intake Oral 240 ml 1000 ml 360 ml 240 ml 720 ml IV Total 750 ml 642 ml 1640 ml # Voids 1 2 4 2 2 # Bowel Movements 2 4 Result Diagram: 07/06/17 1043 07/06/17 1043 Imaging Last Impressions Chest X-Ray 07/08/17 0000 Signed Impressions: Service Date/Time: Saturday, July 08, 2017 15:30 - CONCLUSION: No acute disease. Rome Greco MD Abdomen X-Ray 07/08/17 0000 Signed Impressions: Service Date/Time: Saturday, July 08, 2017 15:38 - CONCLUSION: 1. Nonspecific bowel gas pattern without obstruction or free air. Rome Greco MD Abdomen/Pelvis CT 07/04/17 2149 Signed Impressions: Service Date/Time: Wednesday, July 05, 2017 00:25 - CONCLUSION: 1. Possible small abscess in the left upper quadrant at the site of prior splenectomy. This is not accessible to percutaneous drainage. Smith Pace MD Tibia/Fibula X-Ray 07/04/17 0000 Signed Impressions: Service Date/Time: Tuesday, July 04, 2017 22:09 - CONCLUSION: 1. Osseous structures of the leg are intact. 2. Soft tissue thickening about the medial lateral aspect of the ankle, but no soft tissue thickening about the anterior leg. Aleksey Price MD Objective Remarks GENERAL: AOX3, NAD. SKIN: Warm and dry. HEAD: Normocephalic. EYES: No scleral icterus. No injection or drainage. NECK: Supple, trachea midline. No JVD or lymphadenopathy. CARDIOVASCULAR: Regular rate and rhythm without murmurs, gallops, or rubs. RESPIRATORY: Breath sounds equal bilaterally. No accessory muscle use. GASTROINTESTINAL: Abdomen soft, non-tender, nondistended. MUSCULOSKELETAL: No cyanosis, or edema. BACK: Nontender without obvious deformity. No CVA tenderness. Procedures None. A/P Problem List: (1) Abdominal pain ICD Code: R10.9 Status: Acute (2) Cellulitis ICD Code: L03.90 Status: Acute (3) Alcohol abuse ICD Code: F10.10 Status: Acute (4) Tobacco abuse ICD Code: Z72.0 Status: Acute Assessment and Plan 41-year-old homeless male with a PMH of Alcohol Abuse, Recurrent Pancreatitis and Tobacco Abuse who presented to the ER with complaint of abdominal pain in addition to right leg wound x3 wks. Gastroenteritis: presented with abdominal pain/N/V/diarrhea. Lipase wnl. CT Abd/ Pelvis images reviewed, shows possible small abscess as site of previous splenectomy. General surgery consulted, recommends continuing antibiotics and monitor. Started on protonix. Analgesics/antiemetics as needed. Diet as tolerated. Symptoms improving. C. Diff negative. Left sided abdominal and chest discomfort - Obtained CXR and KUB - both of which are largely unremarkable for any acute findings. Cellulitis: RLE. +open wound w/ purulent drainage, Tib-Fib X-ray w/ soft tissue swelling. Preliminary Wound Culture with Group A strep and Staph aureus - switched abx to Levaquin and Flagyl PO. This should cover both strep and MSSA as well as intra-abdominal small abscess. Alcohol Abuse with Acute Alcohol Withdrawal: patient tremulous on exam with GI symptoms as above. Continue CIWA, Seizure Precautions, MVT/Thiamine/Folate replacement. Tobacco Abuse: Pt counselled. Ativan/NicoDerm prn if needed. Full code. Ambulation. Margarita Phelps DO Jul 08, 2017 15:09
[2017-07-08 16:00] VITALS: BP 128/78; PULSE 88; RESP 20; TEMP 96.9; O2SAT 95
--- NOTE | 2017-07-08 16:12 | RADRPT ---
EXAM DATE/TIME: 07/08/2017 15:30 [facility] COMPARISON: No previous studies available for comparison. INDICATIONS : Cough. MEDICAL HISTORY : Gastroesophageal reflux disease. Pancreatitis. ulcerative colitis SURGICAL HISTORY : Splenectomy. ENCOUNTER: Initial ACUITY: 4 - 6 days PAIN SCORE: 9/10 LOCATION: Bilateral chest FINDINGS: A single view of the chest demonstrates the lungs to be symmetrically aerated without evidence of mas s, infiltrate or effusion. The cardiomediastinal contours are unremarkable. Osseous structures are intact. CONCLUSION: No acute disease. Rome Greco MD on July 08, 2017 at 16:09 Board Certified Radiologist. This report was verified electronically.
--- NOTE | 2017-07-08 16:18 | RADRPT ---
EXAM DATE/TIME: 07/08/2017 15:38 [facility] COMPARISON: No previous studies available for comparison. INDICATIONS : Abdomen pain. MEDICAL HISTORY : Gastroesophageal reflux disease. Pancreatitis. ulcerative colitis SURGICAL HISTORY : Splenectomy. ENCOUNTER: Initial ACUITY: 4 - 6 days PAIN SCORE: 9/10 LOCATION: Bilateral abdomen FINDINGS: Supine view of the abdomen was performed. The abdominal bowel gas pattern is normal. No abnormal ma sses, calcifications, or organomegaly is seen. The osseous structures are unremarkable. CONCLUSION: 1. Nonspecific bowel gas pattern without obstruction or free air. Rome Greco MD on July 08, 2017 at 16:15 Board Certified Radiologist. This report was verified electronically.
[2017-07-08 20:00] VITALS: BP 128/79; PULSE 86; RESP 18; TEMP 98.3; O2SAT 97
[2017-07-09] VITALS: BP 137/93; PULSE 75; RESP 18; TEMP 99.1; O2SAT 98
[2017-07-09] MEDS: ACETAMINOPHEN/HYDROcodone 325 MG/7.5 MG TAB PO PRN ×2 (00:20→06:29)
[2017-07-09] MEDS: SODIUM CHLOR 0.9% 1000 ML INJ 1,000 ML IV SCH (00:21)
[2017-07-09] MEDS: metroNIDAZOLE 500 MG TAB PO SCH (06:27)
[2017-07-09 08:00] VITALS: BP 128/91; PULSE 66; RESP 19; TEMP 98; O2SAT 96
[2017-07-09] MEDS: DOCUSATE SODIUM 50 MG/SENNA 8.6 MG TAB PO SCH (08:52)
[2017-07-09] MEDS: LEVOFLOXACIN 500 MG TAB PO SCH (08:52)
[2017-07-09] MEDS: FOLIC ACID 1 MG TAB PO SCH (08:52)
[2017-07-09] MEDS: THIAMINE HCL 100 MG TAB PO SCH (08:52)
[2017-07-09] MEDS: PANTOPRAZOLE SOD 40 MG DELAYED RELEASE TAB PO SCH (08:52)
[2017-07-09] MEDS: MULTIVITAMINS/MINERALS THERAPEUTIC TAB PO SCH (08:52)
[2017-07-09] MEDS: REMOVE OLD PATCH T-DERMAL SCH (08:53)
[2017-07-09] MEDS: NICOTINE 21 MG/24 HR PATCH T-DERMAL SCH (08:53)
[2017-07-09] MEDS: SODIUM CHLORIDE 0.9% FLUSH 10 ML FLUSH IV FLUSH SCH (08:54)
[2017-07-09] MEDS ORDERED: MUPIROCIN 2% CREAM 15 GM TOPICAL SCH (09:00)
[2017-07-09] MEDS ORDERED: HYDR-3580 PO (10:00)
[2017-07-09] MEDS ORDERED: LEVA500T20 PO (10:00)
[2017-07-09] MEDS ORDERED: GNP100TA3 PO (10:00)
[2017-07-09] MEDS ORDERED: FOLI1TAB6 PO (10:00)
[2017-07-09] MEDS ORDERED: METR-1 PO (10:00)
--- NOTE | 2017-07-09 10:01 | HHI.DS ---
Discharge Summary Admission Date Jul 05, 2017 at 4:02 pm Discharge Date: Jul 09, 2017 Admitting Diagnosis intra-abdominal fluid collection, cellulitis, ETOH, paronychia (1) Abdominal pain ICD Code: R10.9 (2) Cellulitis ICD Code: L03.90 Diagnosis: Principal (3) Alcohol abuse ICD Code: F10.10 (4) Tobacco abuse ICD Code: Z72.0 (5) Abdominal abscess ICD Code: K65.1 Diagnosis: Principal Procedures None. Brief History - From Admission This is a 41-year-old male with a PMH of Alcohol Abuse, Recurrent Pancreatitis and Tobacco Abuse who presented to the ER with complaint of abdominal pain in addition to right leg wound x3 wks. Denies fever, chills, nausea or vomiting. On arrival, BP 119/77, HR 90, O2 sat 97% on RA, Temp 99.1. CBC at baseline. Platelets 122, previously 127 on 05/13/17. Chemistry essentially unremarkable. Lipase 264. INR 0.9. UA negative. Alcohol 297. Tib-fib X-ray with soft tissue thickening about medial lateral aspect of ankle. CT Abd/Pelvis w/ possible small abscess in left upper quadrant at site of prior splenectomy. Dr. Velarde consulted by ER physician, recommendation for observation with eval in a.m. S/p Wound Culture, Vanc/Zosyn in ER. CBC/BMP: 07/06/17 1043 07/06/17 1043 Significant Findings Laboratory Tests Test 07/06/17 10:43 Red Blood Count 4.21 MIL/MM3 (4.50-5.90) Platelet Count 108 TH/MM3 (150-450) Neutrophils (%) (Auto) 71.7 % (16.0-70.0) Monocytes (%) (Auto) 13.6 % (0.0-8.0) Monocytes # (Auto) 1.0 TH/MM3 (0-0.9) Blood Urea Nitrogen 3 MG/DL (7-18) Aspartate Amino Transf 48 U/L (15-37) (AST/SGOT) Albumin 2.7 GM/DL (3.4-5.0) Imaging Last Impressions Chest X-Ray 07/08/17 0000 Signed Impressions: Service Date/Time: Saturday, July 08, 2017 15:30 - CONCLUSION: No acute disease. Rome Greco MD Abdomen X-Ray 07/08/17 0000 Signed Impressions: Service Date/Time: Saturday, July 08, 2017 15:38 - CONCLUSION: 1. Nonspecific bowel gas pattern without obstruction or free air. Rome Greco MD Abdomen/Pelvis CT 07/04/17 2149 Signed Impressions: Service Date/Time: Wednesday, July 05, 2017 00:25 - CONCLUSION: 1. Possible small abscess in the left upper quadrant at the site of prior splenectomy. This is not accessible to percutaneous drainage. Smith Pace MD Tibia/Fibula X-Ray 07/04/17 0000 Signed Impressions: Service Date/Time: Tuesday, July 04, 2017 22:09 - CONCLUSION: 1. Osseous structures of the leg are intact. 2. Soft tissue thickening about the medial lateral aspect of the ankle, but no soft tissue thickening about the anterior leg. Aleksey Price MD PE at Discharge GENERAL: AOX3, NAD. SKIN: Warm and dry. HEAD: Normocephalic. EYES: No scleral icterus. No injection or drainage. NECK: Supple, trachea midline. No JVD or lymphadenopathy. CARDIOVASCULAR: Regular rate and rhythm without murmurs, gallops, or rubs. RESPIRATORY: Breath sounds equal bilaterally. No accessory muscle use. GASTROINTESTINAL: Abdomen soft, non-tender, nondistended. MUSCULOSKELETAL: No cyanosis, or edema. BACK: Nontender without obvious deformity. No CVA tenderness. Pt update on day of discharge Patient is doing well. No acute concerns. No fever, chills. Hospital Course 41-year-old homeless male with a PMH of Alcohol Abuse, Recurrent Pancreatitis and Tobacco Abuse who presented to the ER with complaint of abdominal pain in addition to right leg wound x3 wks. Gastroenteritis: presented with abdominal pain/N/V/diarrhea. Lipase wnl. CT Abd/ Pelvis images reviewed, shows possible small abscess as site of previous splenectomy. General surgery consulted, recommends continuing antibiotics and monitor. Started on protonix. Analgesics/antiemetics as needed. Diet as tolerated. Symptoms improving. C. Diff negative. Left sided abdominal and chest discomfort - Obtained CXR and KUB - both of which are largely unremarkable for any acute findings. Cellulitis: RLE. +open wound w/ purulent drainage, Tib-Fib X-ray w/ soft tissue swelling. Preliminary Wound Culture with Group A strep and Staph aureus - switched abx to Levaquin and Flagyl PO. This should cover both strep and MSSA as well as intra-abdominal small abscess. Alcohol Abuse with Acute Alcohol Withdrawal: patient tremulous on exam with GI symptoms as above. Continue CIWA, Seizure Precautions, MVT/Thiamine/Folate replacement. Tobacco Abuse: Pt counselled. Ativan/NicoDerm prn if needed. Full code. Ambulation. Pt Condition on Discharge: Good Discharge Disposition: Discharge Home Discharge Time: > 30 minutes Discharge Instructions DIET: Follow Instructions for: As Tolerated, No Restrictions Activities you can perform: Regular-No Restrictions Follow up Referrals: PCP Follow-up - 1 Week New Medications: Mupirocin Topical (Mupirocin Topical) 2 % Oint 1 APPLIC TOPICAL BID Mgmt Bacterial Infection #1 Ref 0 TUBE Folic Acid (Folic Acid) 1 Mg Tablet 1 MG PO DAILY Vitamin #30 TAB Hydrocodone-Acetaminophen (Hydrocodone-Acetaminophen) 7.5-325 mg Tab 1 TAB PO Q8HR Pain Management #15 TAB Levofloxacin (Levaquin) 500 Mg Tablet 500 MG PO DAILY Infection #7 TAB Metronidazole (Flagyl) 500 Mg Tab 500 MG PO Q8HR Infection #21 TAB Thiamine HCl (Gnp Vitamin B-1) 100 Mg Tab 100 MG PO DAILY Vitamin #30 TAB Margarita Phelps DO Jul 09, 2017 10:01
[2017-07-09] MEDS ORDERED: MUPI2OIN TOPICAL (10:02)
== END 2017-07-09 11:39 | disposition home or self-care (01) | DRG 863 ==
LOC: NEPD 20:09 → NEDA 07-05 01:19 → NEPGCP 07-05 04:34 → OBSVTOIN 07-05 16:02 → N07B 07-05 22:12
PROVIDERS: ADMIT Hospitalist; ATTEND Hospitalist
PROC: 0H9QXZZ Drainage of Finger Nail, External Approach (ICD-10-PCS; principal; 2017-07-05)
DX: T81.4XXA Infection following a procedure, initial encounter (principal); L03.115 Cellulitis of right lower limb; F10.230 Alcohol dependence with withdrawal, uncomplicated; F10.220 Alcohol dependence with intoxication, uncomplicated; Y90.8 Blood alcohol level of 240 mg/100 ml or more; L03.011 Cellulitis of right finger; K21.9 Gastro-esophageal reflux disease without esophagitis; K52.9 Noninfective gastroenteritis and colitis, unspecified; B95.61 Methicillin susceptible Staphylococcus aureus infection as the cause of diseases classified elsewhere; B95.0 Streptococcus, group A, as the cause of diseases classified elsewhere; F17.210 Nicotine dependence, cigarettes, uncomplicated; Z23 Encounter for immunization; Z86.14 Personal history of Methicillin resistant Staphylococcus aureus infection; Z90.81 Acquired absence of spleen; Z59.0 Homelessness
CPT/HCPCS: 71010; 73590; 74000; 74177; 80053; 80307; 81001; 82948; 83690; 85025; 85610; 85730; 86403; 87070; 87147; 87186; 87205; 87493; 87506; 90732; 93005; 96365; 96375; C9113; J2060; J2270; J2405; J2543; J3370; J7030; J7050; Q9967

== ENCOUNTER 2017-07-19 20:40 | Emergency (ER) | payer OTHER ==
[~2017-07-19] VITALS: Ht 185.4 cm; Wt 73.0 kg
[~2017-07-19 20:40] MED LIST changes: +FOLI1TAB6 PO; -HYDR-3533 PO; +HYDR-3580 PO; +LEVA500T20 PO; +METR-1 PO; -MULTTAB67 PO; +MUPI2OIN TOPICAL; -PROT40TA PO; -ULTR50TA5 PO
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
[2017-07-19] MEDS ORDERED: SODIUM CHLORIDE 0.9% FLUSH 10 ML FLUSH IV FLUSH PRN (21:00)
[2017-07-19] MEDS ORDERED: ONDANSETRON HCL 4 MG/2 ML VIAL IVP ONE (21:00)
[2017-07-19] MEDS ORDERED: MORPHINE SULFATE 4 MG/ML INJ IV PUSH ONE (21:00)
[2017-07-19 21:06] VITALS: BP 117/73; PULSE 95; RESP 18; TEMP 98.3; O2SAT 94
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
[2017-07-19 21:40] LABS: AUTOMATED NEUTROPHIL # 3.3 TH/MM3 (1.8-7.7); BASOPHIL # 0.2 TH/MM3 (0-0.2); BASOPHIL % 3.5 % (0.0-2.0); EOSINOPHIL # 0.1 TH/MM3 (0-0.4); EOSINOPHIL % 1.4 % (0.0-4.0); HEMATOCRIT 37.5 % (39.0-51.0); HEMO FLAGS DIFF FINAL; LYMPH % 24.1 % (9.0-44.0); LYMPHOCYTE # 1.4 TH/MM3 (1.0-4.8); MEAN CELL VOLUME 94.1 FL (80.0-100.0); MEAN CORPUSCULAR HEMOGLOBIN 31.1 PG (27.0-34.0); MONO % 13.1 % (0.0-8.0); NEUT % 57.9 % (16.0-70.0); PLATELET COUNT 349 TH/MM3 (150-450); RED BLOOD COUNT 3.98 MIL/MM3 (4.50-5.90); RED CELL DISTRIBUTION WIDTH 15.8 % (11.6-17.2); WHITE BLOOD COUNT 5.7 TH/MM3 (4.0-11.0)
[2017-07-19 21:58] LABS: ALT (GPT) 37 U/L (12-78); ANION GAP 9 MEQ/L (5-15); AST (GOT) 55 U/L (15-37); BICARBONATE 24.9 MEQ/L (21.0-32.0); BLOOD UREA NITROGEN 6 MG/DL (7-18); CHLORIDE 109 MEQ/L (98-107); GLOMERULAR FILTRATION RATE 150 ML/MIN (>89); POTASSIUM 3.7 MEQ/L (3.5-5.1); SODIUM (NA) 143 MEQ/L (136-145)
[2017-07-19 22:00] LABS: ALKALINE PHOSPHATASE 44 U/L (45-117); TOTAL BILIRUBIN ADULT 0.1 MG/DL (0.2-1.0)
[2017-07-19] MEDS ORDERED: HYDROmorphone HCL PF 1 MG/ML VIAL IV PUSH ONE (22:15)
[2017-07-19] MEDS ORDERED: IOHEXOL 350 MG/ML 10 ML VIAL (for RAD DIAG) IV ONE (22:32)
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
[2017-07-22] MEDS ORDERED: TYLE325T PO ×2 (11:12→14:52)
== END 2017-07-20 00:18 | disposition home or self-care (01) ==
LOC: NEPD 20:40
DX: S30.1XXA Contusion of abdominal wall, initial encounter (principal); Z72.0 Tobacco use; Z87.19 Personal history of other diseases of the digestive system; Z87.39 Personal history of other diseases of the musculoskeletal system and connective tissue; Z86.69 Personal history of other diseases of the nervous system and sense organs; Z87.2 Personal history of diseases of the skin and subcutaneous tissue; Y04.2XXA Assault by strike against or bumped into by another person, initial encounter
CPT/HCPCS: 71010; 74177; 80053; 83690; 85025; 96374; 96375; 99285; J1170; J2270; J2405; Q9967

== ENCOUNTER 2017-07-22 12:07 | Emergency (ER) | payer OTHER ==
[~2017-07-22] VITALS: Ht 185.4 cm; Wt 70.0 kg
[~2017-07-22 12:07] MED LIST changes: -CARA1TAB6 PO; -HYDR-3516 PO; -PANT40TA3 PO
[2017-07-22 12:09] VITALS: BP 127/68; PULSE 67; RESP 16; TEMP 98.9; O2SAT 98
[2017-07-22] MEDS ORDERED: TYLE325T PO (14:52)
[2017-07-22] MEDS ORDERED: SODIUM CHLOR 0.9% 1000 ML INJ 1,000 ML IV SCH (16:12)
[2017-07-22] MEDS ORDERED: SODIUM CHLORIDE 0.9% FLUSH 10 ML FLUSH IV FLUSH PRN (16:15)
[2017-07-22] MEDS ORDERED: FAMOTIDINE 20 MG/2 ML VIAL IV PUSH ONE (16:15)
[2017-07-22] MEDS ORDERED: SUCRALFATE 1 GM/10 ML CUP PO ONE (16:15)
[2017-07-22] MEDS ORDERED: ONDANSETRON HCL 4 MG/2 ML VIAL IVP ONE (16:15)
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
[2017-07-22 17:14] LABS: AUTOMATED NEUTROPHIL # 2.9 TH/MM3 (1.8-7.7); BASOPHIL # 0.2 TH/MM3 (0-0.2); BASOPHIL % 2.9 % (0.0-2.0); EOSINOPHIL # 0.1 TH/MM3 (0-0.4); EOSINOPHIL % 2.4 % (0.0-4.0); HEMATOCRIT 37.3 % (39.0-51.0); HEMO FLAGS DIFF FINAL; LYMPHOCYTE # 1.6 TH/MM3 (1.0-4.8); MEAN CELL VOLUME 95.2 FL (80.0-100.0); MEAN CORPUSCULAR HEMOGLOBIN 32.4 PG (27.0-34.0); MONO % 11.7 % (0.0-8.0); PLATELET COUNT 234 TH/MM3 (150-450); RED BLOOD COUNT 3.92 MIL/MM3 (4.50-5.90); RED CELL DISTRIBUTION WIDTH 15.9 % (11.6-17.2); WHITE BLOOD COUNT 5.5 TH/MM3 (4.0-11.0)
[2017-07-22 17:34] LABS: ALT (GPT) 31 U/L (12-78); ANION GAP 10 MEQ/L (5-15); AST (GOT) 38 U/L (15-37); BICARBONATE 27.5 MEQ/L (21.0-32.0); BLOOD UREA NITROGEN 4 MG/DL (7-18); CHLORIDE 104 MEQ/L (98-107); GLOMERULAR FILTRATION RATE 153 ML/MIN (>89); SODIUM (NA) 141 MEQ/L (136-145)
[2017-07-22 17:35] LABS: ALCOHOL 179 MG/DL (0-5)
[2017-07-22 17:37] LABS: ALKALINE PHOSPHATASE 43 U/L (45-117); TOTAL BILIRUBIN ADULT 0.4 MG/DL (0.2-1.0)
[2017-07-22] MEDS ORDERED: LIDOCAINE VISCOUS 2% SOLN 15 ML UDC PO ONE (18:00)
[2017-07-22] MEDS ORDERED: PANTOPRAZOLE SODIUM 40 MG VIAL IVP ONE (18:00)
[2017-07-22] MEDS ORDERED: ALUMINUM/MAGNESIUM/SIMETH 30 ML CUP PO ONE (18:00)
[2017-07-22] MEDS ORDERED: CARA1TAB6 PO (19:09)
[2017-07-22] MEDS ORDERED: PANT40TA3 PO (19:09)
[2017-07-22 20:06] VITALS: BP 123/65; PULSE 61; RESP 18; O2SAT 100
== END 2017-07-22 20:11 | disposition home or self-care (01) ==
LOC: NEPD 12:07
DX: K29.70 Gastritis, unspecified, without bleeding (principal); F10.929 Alcohol use, unspecified with intoxication, unspecified; K21.9 Gastro-esophageal reflux disease without esophagitis; F17.290 Nicotine dependence, other tobacco product, uncomplicated; F12.10 Cannabis abuse, uncomplicated
CPT/HCPCS: 80053; 80307; 85025; 96361; 96374; 96375; 99284; C9113; J2405; J7030

== ENCOUNTER → 2017-07-22 | Outpatient (CLI) | payer OTHER ==
[~2017-07-22] MED LIST changes: +CARA1TAB6 PO; +HYDR-3516 PO; +PANT40TA3 PO; +TYLE325T PO
== END ==
LOC: CLAB 11:33
PROVIDERS: ATTEND Family Medicine
DX: K85.21 Alcohol induced acute pancreatitis with uninfected necrosis (principal)
CPT/HCPCS: 36415; 83690

== ENCOUNTER 2017-09-18 17:38 | Inpatient (IN) | payer OTHER ==
[~2017-09-18] VITALS: Ht 182.9 cm; Wt 70.4 kg
[~2017-09-18 17:38] MED LIST changes: +CARA1TAB6 PO; -HYDR-3580 PO; -METR-1 PO; +PANT40TA3 PO; -TYLE325T PO
[2017-09-18 17:59] VITALS: BP 102/59; PULSE 70; RESP 19; TEMP 97.9; O2SAT 100
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
[2017-09-18 20:09] LABS: AUTOMATED NEUTROPHIL # 3.7 TH/MM3 (1.8-7.7); BASOPHIL # 0.1 TH/MM3 (0-0.2); BASOPHIL % 1.4 % (0.0-2.0); EOSINOPHIL % 0.6 % (0.0-4.0); HEMATOCRIT 41.7 % (39.0-51.0); HEMO FLAGS DIFF FINAL; LYMPHOCYTE # 1.3 TH/MM3 (1.0-4.8); MONO % 11.7 % (0.0-8.0); NEUT % 64.3 % (16.0-70.0); PLATELET COUNT 244 TH/MM3 (150-450); RED CELL DISTRIBUTION WIDTH 15.9 % (11.6-17.2); WHITE BLOOD COUNT 5.7 TH/MM3 (4.0-11.0)
[2017-09-18 20:35] LABS: ANION GAP 8 MEQ/L (5-15); AST (GOT) 80 U/L (15-37); BICARBONATE 26.2 MEQ/L (21.0-32.0); BLOOD UREA NITROGEN 6 MG/DL (7-18); CHLORIDE 107 MEQ/L (98-107); GLOMERULAR FILTRATION RATE 121 ML/MIN (>89); POTASSIUM 3.7 MEQ/L (3.5-5.1); SODIUM (NA) 141 MEQ/L (136-145)
[2017-09-18 20:38] LABS: ALKALINE PHOSPHATASE 52 U/L (45-117); ALT (GPT) 62 U/L (12-78); TOTAL BILIRUBIN ADULT 0.2 MG/DL (0.2-1.0)
[2017-09-18 20:43] LABS: APTT (PATIENT) 29.9 SEC (24.3-30.1); INTERNATIONAL NORMALIZED RATIO 0.9 RATIO; PROTHROMBIN TIME - PATIENT 9.8 SEC (9.8-11.6)
[2017-09-18] MEDS ORDERED: LIDOCAINE HCL 1% 30 ML VIAL INFIL ONE (20:45)
--- NOTE | 2017-09-18 21:13 | PD ---
Physical Exam Date Seen by Provider: Sep 18, 2017 Time Seen by Provider: 21:10 Data Data Last Documented VS Vital Signs Date Time Temp Pulse Resp B/P (MAP) Pulse Ox O2 Delivery O2 Flow Rate FiO2 09/18/17 17:59 70 19 100 Room Air 09/18/17 17:59 97.9 102/59 (73) Orders Orders Ct Brain W/O Iv Contrast(Rout) (09/18/17 ) Ct Cerv Spine W/O Contrast (09/18/17 ) Complete Blood Count With Diff (09/18/17 19:21) Comprehensive Metabolic Panel (09/18/17 19:21) Prothrombin Time / Inr (Pt) (09/18/17 19:21) Act Partial Throm Time (Ptt) (09/18/17 19:21) Chest, Single Ap (09/18/17 ) Alcohol (Ethanol) (09/18/17 19:24) Drug Screen, Random Urine (09/18/17 19:24) Admit Order (Ed Use Only) (09/18/17 20:21) Labs Laboratory Tests Test 09/18/17 19:41 White Blood Count 5.7 TH/MM3 Red Blood Count 4.30 MIL/MM3 Hemoglobin 13.8 GM/DL Hematocrit 41.7 % Mean Corpuscular Volume 97.0 FL Mean Corpuscular Hemoglobin 32.0 PG Mean Corpuscular Hemoglobin Concent 33.0 % Red Cell Distribution Width 15.9 % Platelet Count 244 TH/MM3 Mean Platelet Volume 8.3 FL Neutrophils (%) (Auto) 64.3 % Lymphocytes (%) (Auto) 22.0 % Monocytes (%) (Auto) 11.7 % Eosinophils (%) (Auto) 0.6 % Basophils (%) (Auto) 1.4 % Neutrophils # (Auto) 3.7 TH/MM3 Lymphocytes # (Auto) 1.3 TH/MM3 Monocytes # (Auto) 0.7 TH/MM3 Eosinophils # (Auto) 0.0 TH/MM3 Basophils # (Auto) 0.1 TH/MM3 CBC Comment DIFF FINAL Differential Comment Prothrombin Time 9.8 SEC Prothromb Time International Ratio 0.9 RATIO Activated Partial Thromboplast Time 29.9 SEC Blood Urea Nitrogen 6 MG/DL Creatinine 0.71 MG/DL Random Glucose 123 MG/DL Total Protein 8.3 GM/DL Albumin 3.9 GM/DL Calcium Level 8.6 MG/DL Alkaline Phosphatase 52 U/L Aspartate Amino Transf (AST/SGOT) 80 U/L Alanine Aminotransferase (ALT/SGPT) 62 U/L Total Bilirubin 0.2 MG/DL Sodium Level 141 MEQ/L Potassium Level 3.7 MEQ/L Chloride Level 107 MEQ/L Carbon Dioxide Level 26.2 MEQ/L Anion Gap 8 MEQ/L Estimat Glomerular Filtration Rate 121 ML/MIN Ethyl Alcohol Level 333 MG/DL [facility] Supervised Visit with JOSE R: No Narrative Course I was asked to evaluate this patient's facial lacerations. The patient was initially seen by Dr. Clarke. Please see her note for full H& P. On my exam patient is intoxicated, but alert and oriented. He has a 3 cm laceration superior to the left eyebrow and a 5 cm complex laceration just superior to the left lateral edge of the lip. No visible foreign bodies.. Laceration repair was performed. Please see my procedure note for details. Dr. Clarke retains care of this patient. Please see her note for disposition. Procedures Procedure Narrative LACERATION LOCATION: Superior to the left eyebrow LENGTH: 3 cm NUMBER OF STITCHES/GREY: 6 REPAIR: The area of the laceration was prepped with Betadine and sterilely draped. The laceration was infiltrated with 1% lidocaine. The wound was copiously irrigated and explored without evidence of foreign body, tendon injury or neurovascular injury. The wound was closed using 3-0 Vicryl and 4-0 Prolene. This was a 2 layer repair. A sterile dressing was applied. The patient was advised to keep the dressing clean and dry. Patient tolerated the procedure well. LACERATION LOCATION: Left lateral Lateral to the upper lip LENGTH: 5 cm complex NUMBER OF STITCHES/GREY: 10 REPAIR: The area of the laceration was prepped with Betadine and sterilely draped. The laceration was infiltrated with 1% lidocaine. The wound was copiously irrigated and explored without evidence of foreign body, tendon injury or neurovascular injury. The wound was closed using 3-0 Vicryl and 4-0 Prolene. This was a 2 layer repair. A sterile dressing was applied. The patient was advised to keep the dressing clean and dry. Patient tolerated the procedure well. Coleen Saeed Sep 18, 2017 21:13
[2017-09-18 21:39] VITALS: BP 106/68; PULSE 61; RESP 16; O2SAT 99
[2017-09-18] MEDS ORDERED: ENALAPRILAT 1.25 MG/ML VIAL IV PUSH PRN (22:15)
[2017-09-18] MEDS ORDERED: ONDANSETRON HCL 4 MG/2 ML VIAL IV PUSH PRN (22:15)
[2017-09-18] MEDS ORDERED: CHLORHEXIDINE GLUCONATE 2 % 1 PACK (2 CLOTHS) TOP PRN (22:15)
[2017-09-18] MEDS ORDERED: HYDROmorphone HCL PF 1 MG/ML VIAL IVP PRN (22:15)
[2017-09-18] MEDS ORDERED: SODIUM CHLORIDE 0.9% FLUSH 10 ML FLUSH IV FLUSH PRN (22:15)
[2017-09-18] MEDS ORDERED: MAGNESIUM HYDROXIDE SUSP 30 ML CUP PO PRN (22:15)
[2017-09-18] MEDS ORDERED: MISCELLANEOUS NURSING INFORMATION XX SCH (22:15)
[2017-09-18] MEDS ORDERED: ACETAMINOPHEN/HYDROcodone 325 MG/5 MG TAB PO PRN (22:15)
[2017-09-18] MEDS ORDERED: MORPHINE SULFATE 4 MG/ML INJ IV PUSH ONE (22:15)
[2017-09-18 23:00] VITALS: BP 114/67; PULSE 58; PULSE 62; RESP 18; TEMP 98.1; O2SAT 98
[2017-09-18] MEDS: PANTOPRAZOLE SODIUM 40 MG VIAL IVP SCH (23:14)
[2017-09-18] MEDS: SODIUM CHLOR 0.9% 1000 ML INJ 1,000 ML IV SCH (23:14)
[2017-09-18] MEDS: ACETAMINOPHEN/HYDROcodone 325 MG/5 MG TAB PO PRN (23:14)
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
[2017-09-19] VITALS (10 sets, daily range): BP systolic 102–131; BP diastolic 55–75; PULSE 50–94; RESP 12–20; TEMP 97.7–98.7; O2SAT 95–97
[2017-09-19] MEDS: CHLORHEXIDINE GLUCONATE 2 % 1 PACK (2 CLOTHS) TOP SCH (04:00)
[2017-09-19] MEDS: ACETAMINOPHEN/HYDROcodone 325 MG/5 MG TAB PO PRN ×5 (04:20→20:44)
[2017-09-19 05:07] LABS: BASOPHIL # 0.1 TH/MM3 (0-0.2); BASOPHIL % 1.3 % (0.0-2.0); EOSINOPHIL # 0.1 TH/MM3 (0-0.4); EOSINOPHIL % 1.9 % (0.0-4.0); HEMATOCRIT 35.9 % (39.0-51.0); HEMO FLAGS DIFF FINAL; LYMPH % 32.1 % (9.0-44.0); MEAN CELL VOLUME 97.2 FL (80.0-100.0); MEAN CORPUSCULAR HEMOGLOBIN 32.8 PG (27.0-34.0); MEAN CORPUSCULAR HGB CONC 33.8 % (32.0-36.0); MONO % 16.2 % (0.0-8.0); NEUT % 48.5 % (16.0-70.0); PLATELET COUNT 206 TH/MM3 (150-450); RED CELL DISTRIBUTION WIDTH 15.9 % (11.6-17.2); WHITE BLOOD COUNT 6.2 TH/MM3 (4.0-11.0)
[2017-09-19 05:34] LABS: POTASSIUM 3.7 MEQ/L (3.5-5.1)
[2017-09-19] MEDS: SODIUM CHLOR 0.9% 1000 ML INJ 1,000 ML IV SCH ×2 (08:09→18:09)
[2017-09-19] MEDS: DOCUSATE SODIUM 100 MG CAP PO SCH ×2 (08:10→20:43)
[2017-09-19] MEDS: PANTOPRAZOLE SODIUM 40 MG VIAL IVP SCH (08:10)
[2017-09-19] MEDS ORDERED: MULTIVITAMIN INJ 10 ML, THIAMINE INJ 100 MG, FOLIC ACID INJ 1 MG in SODIUM CHLORID 0.9%... IV SCH (09:00)
[2017-09-19] MEDS ORDERED: INFLUENZA VIRUS VACCINE (QUADRIVALENT) 0.5 ML SYR IM ONE (09:00)
[2017-09-19] MEDS: levETIRAcetam 500 MG TAB PO SCH ×2 (09:45→20:43)
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
[2017-09-20] MEDS: SODIUM CHLOR 0.9% 1000 ML INJ 1,000 ML IV SCH (00:13)
[2017-09-20] MEDS: ACETAMINOPHEN/HYDROcodone 325 MG/5 MG TAB PO PRN ×5 (00:57→16:27)
[2017-09-20 01:03] VITALS: BP 133/73; PULSE 51; RESP 18; TEMP 98.3; O2SAT 98
[2017-09-20] MEDS: CHLORHEXIDINE GLUCONATE 2 % 1 PACK (2 CLOTHS) TOP SCH (04:00)
[2017-09-20 05:14] LABS: AUTOMATED NEUTROPHIL # 3.6 TH/MM3 (1.8-7.7); BASOPHIL # 0.1 TH/MM3 (0-0.2); BASOPHIL % 1.3 % (0.0-2.0); EOSINOPHIL # 0.1 TH/MM3 (0-0.4); EOSINOPHIL % 1.9 % (0.0-4.0); HEMATOCRIT 36.4 % (39.0-51.0); HEMO FLAGS DIFF FINAL; LYMPH % 26.1 % (9.0-44.0); LYMPHOCYTE # 1.8 TH/MM3 (1.0-4.8); MEAN CELL VOLUME 96.9 FL (80.0-100.0); MEAN CORPUSCULAR HEMOGLOBIN 32.2 PG (27.0-34.0); MEAN CORPUSCULAR HGB CONC 33.2 % (32.0-36.0); MONO % 17.8 % (0.0-8.0); NEUT % 52.9 % (16.0-70.0); PLATELET COUNT 221 TH/MM3 (150-450); RED BLOOD COUNT 3.75 MIL/MM3 (4.50-5.90); RED CELL DISTRIBUTION WIDTH 15.6 % (11.6-17.2); WHITE BLOOD COUNT 6.8 TH/MM3 (4.0-11.0)
[2017-09-20 05:15] VITALS: BP 143/79; PULSE 60; RESP 20; TEMP 98.4; O2SAT 96
[2017-09-20 06:29] LABS: ALKALINE PHOSPHATASE 42 U/L (45-117); ALT (GPT) 37 U/L (12-78); ANION GAP 6 MEQ/L (5-15); AST (GOT) 30 U/L (15-37); BICARBONATE 26.8 MEQ/L (21.0-32.0); BLOOD UREA NITROGEN 7 MG/DL (7-18); CHLORIDE 106 MEQ/L (98-107); GLOMERULAR FILTRATION RATE 173 ML/MIN (>89); POTASSIUM 3.7 MEQ/L (3.5-5.1); SODIUM (NA) 139 MEQ/L (136-145); TOTAL BILIRUBIN ADULT 0.5 MG/DL (0.2-1.0)
[2017-09-20 08:00] VITALS: BP 137/75; PULSE 60; RESP 17; TEMP 98.1; O2SAT 98
[2017-09-20] MEDS ORDERED: LACTULOSE SYRUP 20 GM/30 ML CUP PO PRN (08:00)
[2017-09-20] MEDS ORDERED: THIAMINE HCL 100 MG TAB PO SCH (09:00)
[2017-09-20] MEDS ORDERED: FOLIC ACID 1 MG TAB PO SCH (09:00)
[2017-09-20] MEDS ORDERED: FAMOTIDINE 20 MG TAB PO SCH (09:00)
[2017-09-20] MEDS ORDERED: DOCUSATE SODIUM 50 MG/SENNA 8.6 MG TAB PO SCH (09:00)
[2017-09-20] MEDS ORDERED: MULTIVITAMINS/MINERALS THERAPEUTIC TAB PO SCH (09:00)
[2017-09-20] MEDS: levETIRAcetam 500 MG TAB PO SCH (09:02)
[2017-09-20] MEDS ORDERED: MAGNESIUM HYDROXIDE SUSP 30 ML CUP PO PRN (09:30)
[2017-09-20 12:00] VITALS: BP 129/69; PULSE 67; RESP 17; TEMP 97.8; O2SAT 98
[2017-09-20] MEDS ORDERED: HYDR-3516 PO (13:03)
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
[2017-09-20 16:00] VITALS: BP 123/83; PULSE 65; RESP 17; TEMP 98.7; O2SAT 98
== END 2017-09-20 16:34 | disposition home or self-care (01) | DRG 87 ==
LOC: NEPD 17:38 → NEDA 20:23 → N03A 22:52 → N05A 09-19 19:44
PROVIDERS: ADMIT Surgery; ATTEND Surgery
PROC: 0HQ1XZZ Repair Face Skin, External Approach (ICD-10-PCS; principal; 2017-09-18)
DX: S06.6X0A Traumatic subarachnoid hemorrhage without loss of consciousness, initial encounter (principal); S01.112A Laceration without foreign body of left eyelid and periocular area, initial encounter; F10.120 Alcohol abuse with intoxication, uncomplicated; S01.81XA Laceration without foreign body of other part of head, initial encounter; Y04.0XXA Assault by unarmed brawl or fight, initial encounter; K21.9 Gastro-esophageal reflux disease without esophagitis; F17.210 Nicotine dependence, cigarettes, uncomplicated; Y90.8 Blood alcohol level of 240 mg/100 ml or more; Z87.820 Personal history of traumatic brain injury; Z86.14 Personal history of Methicillin resistant Staphylococcus aureus infection
CPT/HCPCS: 12054; 70450; 71010; 72125; 80048; 80053; 80307; 85025; 85610; 85730; 87641; 94150; C9113; J2270; J3411; J7030; J7040; L0150

== ENCOUNTER 2017-09-21 22:31 | Emergency (ER) | payer OTHER ==
[~2017-09-21] VITALS: Ht 182.9 cm; Wt 71.0 kg
[~2017-09-21 22:31] MED LIST changes: +HYDR-3516 PO; -LEVA500T20 PO
[2017-09-21 22:35] VITALS: BP 110/80; PULSE 80; RESP 18; TEMP 98.9; O2SAT 96
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
[2017-09-21] MEDS ORDERED: ACETAMINOPHEN 325 MG TAB PO ONE (23:45)
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
[2017-09-21 23:59] LABS: AUTOMATED NEUTROPHIL # 4.7 TH/MM3 (1.8-7.7); BASOPHIL # 0.2 TH/MM3 (0-0.2); BASOPHIL % 2.2 % (0.0-2.0); EOSINOPHIL # 0.1 TH/MM3 (0-0.4); EOSINOPHIL % 1.4 % (0.0-4.0); HEMATOCRIT 38.6 % (39.0-51.0); HEMO FLAGS DIFF FINAL; LYMPHOCYTE # 2.1 TH/MM3 (1.0-4.8); MEAN CORPUSCULAR HEMOGLOBIN 31.9 PG (27.0-34.0); MEAN CORPUSCULAR HGB CONC 32.9 % (32.0-36.0); MONO % 13.9 % (0.0-8.0); NEUT % 57.5 % (16.0-70.0); PLATELET COUNT 289 TH/MM3 (150-450); RED BLOOD COUNT 3.98 MIL/MM3 (4.50-5.90); RED CELL DISTRIBUTION WIDTH 15.7 % (11.6-17.2); WHITE BLOOD COUNT 8.2 TH/MM3 (4.0-11.0)
[2017-09-22 00:08] LABS: INTERNATIONAL NORMALIZED RATIO 0.9 RATIO; PROTHROMBIN TIME - PATIENT 9.8 SEC (9.8-11.6)
[2017-09-22 00:44] LABS: ALKALINE PHOSPHATASE 54 U/L (45-117); ALT (GPT) 39 U/L (12-78); ANION GAP 11 MEQ/L (5-15); AST (GOT) 43 U/L (15-37); BICARBONATE 22.6 MEQ/L (21.0-32.0); BLOOD UREA NITROGEN 11 MG/DL (7-18); CHLORIDE 108 MEQ/L (98-107); GLOMERULAR FILTRATION RATE 134 ML/MIN (>89); POTASSIUM 3.8 MEQ/L (3.5-5.1); SODIUM (NA) 142 MEQ/L (136-145); TOTAL BILIRUBIN ADULT 0.1 MG/DL (0.2-1.0)
[2017-09-22 01:15] VITALS: RESP 16
--- NOTE | 2017-09-22 02:16 | RADRPT ---
EXAM DATE/TIME: 09/22/2017 00:41 [facility] COMPARISON: CHEST SINGLE AP, September 18, 2017, 20:15. INDICATIONS : Headache, continuous symptoms from last visit three days ago. MEDICAL HISTORY : Pancreatitis. SURGICAL HISTORY : Splenectomy. ENCOUNTER: Subsequent ACUITY: 3 days PAIN SCORE: 0/10 LOCATION: Bilateral chest FINDINGS: A single view of the chest demonstrates the lungs to be symmetrically aerated without evidence of mas s, infiltrate or effusion. The cardiomediastinal contours are unremarkable. Osseous structures are intact. CONCLUSION: No acute disease. Mayco Bui MD on September 22, 2017 at 2:14 Board Certified Radiologist. This report was verified electronically.
[2017-09-22 03:01] VITALS: BP 121/76
== END 2017-09-22 03:11 | disposition home or self-care (01) ==
LOC: NEPC 22:31
DX: G44.329 Chronic post-traumatic headache, not intractable (principal); J06.9 Acute upper respiratory infection, unspecified; K21.9 Gastro-esophageal reflux disease without esophagitis; F17.210 Nicotine dependence, cigarettes, uncomplicated
CPT/HCPCS: 70450; 71010; 80053; 85025; 85610; 99285

== ENCOUNTER 2017-12-13 07:27 | Inpatient (IN) | payer OTHER ==
[~2017-12-13] VITALS: Ht 182.9 cm; Wt 72.0 kg
[~2017-12-13 07:27] MED LIST changes: -GNP100TA3 PO; +THIA100 PO
[2017-12-13 07:34] VITALS: BP 140/80; PULSE 109; TEMP 99.4; O2SAT 98
[2017-12-13 08:30] LABS: BASOPHIL # 0.1 TH/MM3 (0-0.2); BASOPHIL % 0.8 % (0.0-2.0); HEMATOCRIT 40.7 % (39.0-51.0); HEMOGLOBIN 13.5 GM/DL (13.0-17.0); LYMPH % 6.3 % (9.0-44.0); MEAN CELL VOLUME 94.2 FL (80.0-100.0); MEAN CORPUSCULAR HEMOGLOBIN 31.3 PG (27.0-34.0); MEAN CORPUSCULAR HGB CONC 33.2 % (32.0-36.0); MEAN PLATELET VOLUME 8.7 FL (7.0-11.0); MONO % 12.1 % (0.0-8.0); MONOCYTE # 1.9 TH/MM3 (0-0.9); NEUT % 80.8 % (16.0-70.0); PLATELET COUNT 205 TH/MM3 (150-450); RED BLOOD COUNT 4.32 MIL/MM3 (4.50-5.90); RED CELL DISTRIBUTION WIDTH 16.8 % (11.6-17.2); WHITE BLOOD COUNT 16.1 TH/MM3 (4.0-11.0)
[2017-12-13 08:36] LABS: BILIRUBIN, URINE SMALL (NEG); BLOOD, URINE TRACE (NEG); GLUCOSE,URINE NEG (NEG); KETONE, URINE 80 mg/dL (NEG); MUCUS URINE MANY /lpf (OCC); NITRITE,URINE NEG (NEG); SQUAMOUS EPITHELIAL CELL URINE <1 /hpf (0-5); URINE COLOR YELLOW (YELLW/STRAW); URINE LEUKOCYTE ESTERASE TRACE (NEG)
[2017-12-13 08:48] VITALS: BP 148/89; PULSE 69; RESP 18; O2SAT 97
[2017-12-13 08:49] LABS: ALBUMIN 3.7 GM/DL (3.4-5.0); AST (GOT) 39 U/L (15-37); BICARBONATE 23.3 MEQ/L (21.0-32.0); BLOOD UREA NITROGEN 7 MG/DL (7-18); CALCIUM 9.1 MG/DL (8.5-10.1); CHLORIDE 97 MEQ/L (98-107); CREATININE 0.69 MG/DL (0.60-1.30); GLOMERULAR FILTRATION RATE 125 ML/MIN (>89); GLUCOSE,RANDOM 78 MG/DL (74-106); LIPASE 1010 U/L (73-393); SODIUM (NA) 132 MEQ/L (136-145)
[2017-12-13 08:51] LABS: ALT (GPT) 36 U/L (12-78)
[2017-12-13 08:52] LABS: ALKALINE PHOSPHATASE 61 U/L (45-117); TOTAL BILIRUBIN ADULT 0.7 MG/DL (0.2-1.0); TOTAL PROTEIN 8.4 GM/DL (6.4-8.2)
[2017-12-13] MEDS ORDERED: SODIUM CHLOR 0.9% 1000 ML INJ 1,000 ML IV ONE (09:00)
[2017-12-13] MEDS ORDERED: MORPHINE SULFATE 2 MG/ML INJ IV PUSH ONE (09:00)
[2017-12-13] MEDS ORDERED: ONDANSETRON HCL 4 MG/2 ML VIAL IV PUSH ONE (09:00)
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
[2017-12-13] MEDS ORDERED: SODIUM CHLORIDE 0.9% FLUSH 10 ML FLUSH IV FLUSH PRN (10:00)
[2017-12-13] MEDS ORDERED: ONDANSETRON HCL 4 MG/2 ML VIAL IV PUSH PRN (10:00)
[2017-12-13 10:03] VITALS: O2SAT 98
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
[2017-12-13] MEDS ORDERED: LORazepam 2 MG TAB PO PRN (10:45)
[2017-12-13] MEDS ORDERED: cloNIDine HCL 0.1 MG TAB PO PRN (10:45)
[2017-12-13] MEDS ORDERED: FLUMAZENIL 0.5 MG/5 ML VIAL IV PUSH PRN (10:45)
[2017-12-13] MEDS ORDERED: LORazepam 2 MG/ML VIAL IV PUSH PRN ×4 (10:45)
[2017-12-13] MEDS ORDERED: HALOPERIDOL LACTATE 5 MG/ML AMP IM PRN (10:45)
[2017-12-13] MEDS: HYDROmorphone HCL PF 2 MG/ML VIAL IV PUSH PRN ×3 (10:51→21:36)
[2017-12-13] MEDS: SODIUM CHLORIDE 0.9% FLUSH 10 ML FLUSH IV FLUSH SCH ×2 (10:56→21:37)
[2017-12-13] MEDS: SODIUM CHLOR 0.9% 1000 ML INJ 1,000 ML IV SCH ×4 (10:57→21:38)
[2017-12-13] MEDS: ENOXAPARIN SODIUM 40 MG/0.4 ML SYRINGE SQ SCH (11:23)
[2017-12-13] MEDS: THIAMINE INJ 100 MG in SODIUM CHLORIDE 0.9% INJ 100 ML IV SCH ×2 (12:44→14:33)
[2017-12-13 13:00] VITALS: BP 136/74; PULSE 77; RESP 18; O2SAT 97
[2017-12-13 13:26] LABS: MAGNESIUM 1.8 MG/DL (1.5-2.5); PHOSPHORUS 3.3 MG/DL (2.5-4.9)
[2017-12-13 13:36] LABS: ACETAMINOPHEN LESS THAN 2.0 MCG/ML (10.0-30.0)
[2017-12-13] MEDS: NICOTINE 7 MG/24 HR PATCH T-DERMAL SCH (14:34)
[2017-12-13] MEDS: MULTIVITAMIN INJ 10 ML, FOLIC ACID INJ 1 MG in SODIUM CHLORID 0.9% 500 ML INJ 500 ML IV SCH (15:41)
[2017-12-13 16:00] VITALS: BP 136/82; PULSE 88; RESP 20; TEMP 99.9; O2SAT 95
[2017-12-13] MEDS ORDERED: DIATRIZOATE MEGLUM/DIATRIZOATE SOD 9 ML CUP PO ONE (17:30)
[2017-12-13 20:00] VITALS: BP 138/79; PULSE 85; RESP 20; TEMP 100.7; O2SAT 96
[2017-12-13] MEDS: REMOVE OLD PATCH T-DERMAL SCH (21:00)
--- NOTE | 2017-12-13 22:15 | HHI.FPPN ---
Subjective Subjective Patient seen and examined at 1400 today. Case reviewed and discussed Please refer to resident H&P for further details regarding HPI, ROS, PMH, SurgHx , FH and SocHx In summary, patient is a 42yoM with recurrent alcoholic pancreatitis. He presented to the ED with worsening epigastric pain similar to his prior episodes. He continues to consume alcohol. Patient is seen in his hospital bed. Met SIRS criteria on admission. On IVF, pain controlled with current regimen No fevers, no chills. [facility] Objective Objective Laboratory Tests - Abnormals Test 12/13/17 08:08 White Blood Count 16.1 TH/MM3 Red Blood Count 4.32 MIL/MM3 Neutrophils (%) (Auto) 80.8 % Lymphocytes (%) (Auto) 6.3 % Monocytes (%) (Auto) 12.1 % Neutrophils # (Auto) 13.0 TH/MM3 Monocytes # (Auto) 1.9 TH/MM3 Urine Protein 30 mg/dL Urine Ketones 80 mg/dL Urine Occult Blood TRACE Urine Bilirubin SMALL Urine Urobilinogen 4.0 MG/DL Urine Leukocyte Esterase TRACE Urine Mucus MANY /lpf Total Protein 8.4 GM/DL Aspartate Amino Transf (AST/SGOT) 39 U/L Sodium Level 132 MEQ/L Chloride Level 97 MEQ/L Lipase 1010 U/L Acetaminophen Level LESS THAN 2.0 MCG/ML Vital Signs 12/13/17 12/13/17 12/13/17 12/13/17 07:34 08:48 10:03 13:00 Temp 99.4 Pulse 109 69 77 Resp 18 18 B/P (MAP) 140/80 (100) 148/89 (108) 136/74 (94) Pulse Ox 98 97 98 97 O2 Delivery Room Air Room Air Room Air FiO2 21 12/13/17 12/13/17 12/13/17 12/13/17 14:28 15:24 16:00 20:00 Temp 99.9 100.7 Pulse 88 85 Resp 17 20 20 B/P (MAP) 136/82 (100) 138/79 (98) Pulse Ox 95 96 INTAKE & OUTPUT 12/14/17 07:00 Intake Total 1000 ml Balance 1000 ml Physical exam GENERAL: wdwn pleasant male. Slightly disheveled. SKIN: Warm and dry. No rashes HEAD: Normocephalic. AT EYES: No scleral icterus. No injection or drainage. ENT: OP clear. MM slightly dry NECK: Supple, trachea midline. No JVD or lymphadenopathy. CARDIOVASCULAR: Regular rate and rhythm without audible murmurs, gallops, or rubs. RESPIRATORY: Breath sounds equal and clear to auscultation bilaterally. No accessory muscle use. GASTROINTESTINAL: Abdomen soft, tender to palpation diffusely, but worst at epigastrium, nondistended. No rebound, mild voluntary guarding. Normal active BS. MUSCULOSKELETAL: No cyanosis, or edema. No calf tenderness. Wound over L anterior robbins, no drainage. No erythema. BACK: Nontender without obvious deformity. No CVA tenderness. NEURO: Normal speech. CN grossly intact. No tremors. Awake and alert. Assessment Assessment 42yoM admitted with: Acute on chronic pancreatitis Intractable pain Alcohol dependence High risk for acute alcohol withdrawal Leg wound, POA SIRS criteria Homelessness Tobacco dependence Leukocytosis PLAN PLAN IVF resuscitation Trend lipase Pain control NPO CIWA Rally pack CT Abdomen Sepsis work-up Empiric antibiotic therapy if change in status, fever, worsens CM consult Patient seen and examined. Case reviewed and discussed Agree with plan of care as discussed with me and documented in the resident note. Kerry Baker MD Dec 13, 2017 22:15
[2017-12-13] MEDS ORDERED: IOHEXOL 350 MG/ML 10 ML VIAL (for RAD DIAG) IVCONTRAST ONE (22:43)
--- NOTE | 2017-12-13 22:56 | RADRPT ---
EXAM DATE/TIME: 12/13/2017 22:24 [facility] COMPARISON: CT ABDOMEN & PELVIS W CONTRAST, July 19, 2017, 22:29. INDICATIONS : Pancreatitis. Evaluate for pseudocyst. IV CONTRAST: 95 cc Omnipaque 350 (iohexol) IV ORAL CONTRAST: Prescribed oral contrast ingested. RADIATION DOSE: 6.88 CTDIvol (mGy) MEDICAL HISTORY : Pancreatitis. Gastroesophageal reflux disease. Diabetes mellitus type 2. SURGICAL HISTORY : Cholecystectomy. Splenectomy. ENCOUNTER: Initial ACUITY: 1 day PAIN SCALE: 6/10 LOCATION: Bilateral abdomen TECHNIQUE: Volumetric scanning of the abdomen and pelvis was performed. Using automated exposure control and ad justment of the mA and/or kV according to patient size, radiation dose was kept as low as reasonably achievable to obtain optimal diagnostic quality images. DICOM format image data is available electro nically for review and comparison. FINDINGS: Marked wall thickening and surrounding inflammatory changes seen of the splenic flexure region of the colon. No abscess, perforation or obstruction. Mild edema around the pancreas to superimposed mild p ancreatitis possible. No pseudocyst. Liver is fatty infiltrated. Splenectomy changes are again noted. There is sigmoid colon diverticulosi s without diverticulitis. Small to moderate free fluid present in the pelvic cavity. No loculated fluid seen. No hemorrhage. There is trace atelectasis at both bases. CONCLUSION: 1. Very severe colitis of the splenic flexure, presumably infectious or inflammatory. No associated a bscess, perforation or obstruction. 2. Mild superimposed acute pancreatitis possible in the proper clinical setting. No pseudocyst. 3. Splenectomy changes are again seen. 4. Liver is mild fatty infiltrated. 5. Sigmoid colon diverticulosis without diverticulitis. 6. Small to moderate low attenuation free fluid in the pelvic cavity. Narinder Caban MD on December 13, 2017 at 22:49 Board Certified Radiologist. This report was verified electronically.
--- NOTE | 2017-12-13 23:04 | RADRPT ---
EXAM DATE/TIME: 12/13/2017 22:47 [facility] COMPARISON: CHEST SINGLE AP, September 22, 2017, 0:41. INDICATIONS : Chest pain for two days. MEDICAL HISTORY : Pancreatitis. Gastroesophageal reflux disease. Diabetes mellitus type 2. SURGICAL HISTORY : Cholecystectomy. Splenectomy. ENCOUNTER: Initial ACUITY: 2 days PAIN SCORE: 7/10 LOCATION: Bilateral chest FINDINGS: A single view of the chest demonstrates the lungs to be symmetrically aerated without evidence of mas s, infiltrate or effusion. The cardiomediastinal contours are unremarkable. Osseous structures are intact. CONCLUSION: No acute disease. No significant change has occurred. Db Boyd MD on December 13, 2017 at 23:02 Board Certified Radiologist. This report was verified electronically.
[2017-12-13 23:43] LABS: INTERNATIONAL NORMALIZED RATIO 1.1 RATIO; PROTHROMBIN TIME - PATIENT 10.9 SEC (9.8-11.6)
[2017-12-14] VITALS: BP 134/77; PULSE 74; RESP 20; TEMP 99; O2SAT 96
[2017-12-14] MEDS: PIPERACIL-TAZO 3.375 GM PREMIX 50 ML IV SCH ×3 (00:48→10:34)
[2017-12-14] MEDS: SODIUM CHLOR 0.9% 1000 ML INJ 1,000 ML IV SCH ×5 (00:48→15:26)
[2017-12-14] MEDS: HYDROmorphone HCL PF 2 MG/ML VIAL IV PUSH PRN ×4 (03:44→22:55)
[2017-12-14] MEDS ORDERED: ACETAMINOPHEN 1000 MG/100 ML 65 ML IV PRN (05:00)
[2017-12-14] MEDS ORDERED: ENALAPRILAT 1.25 MG/ML VIAL IV PUSH PRN (05:00)
[2017-12-14 06:21] LABS: AUTOMATED NEUTROPHIL # 10.8 TH/MM3 (1.8-7.7); BASOPHIL # 0.1 TH/MM3 (0-0.2); BASOPHIL % 0.7 % (0.0-2.0); EOSINOPHIL % 0.3 % (0.0-4.0); HEMATOCRIT 34.1 % (39.0-51.0); HEMOGLOBIN 11.5 GM/DL (13.0-17.0); LYMPH % 7.5 % (9.0-44.0); LYMPHOCYTE # 1.1 TH/MM3 (1.0-4.8); MEAN CELL VOLUME 95.3 FL (80.0-100.0); MEAN CORPUSCULAR HEMOGLOBIN 32.2 PG (27.0-34.0); MEAN CORPUSCULAR HGB CONC 33.8 % (32.0-36.0); MONOCYTE # 2.3 TH/MM3 (0-0.9); NEUT % 75.5 % (16.0-70.0); PLATELET COUNT 190 TH/MM3 (150-450); RED BLOOD COUNT 3.58 MIL/MM3 (4.50-5.90); RED CELL DISTRIBUTION WIDTH 17.3 % (11.6-17.2); WHITE BLOOD COUNT 14.3 TH/MM3 (4.0-11.0)
[2017-12-14 06:38] LABS: ALBUMIN 2.7 GM/DL (3.4-5.0); AST (GOT) 34 U/L (15-37); BICARBONATE 22.9 MEQ/L (21.0-32.0); BLOOD UREA NITROGEN 6 MG/DL (7-18); CALCIUM 8.1 MG/DL (8.5-10.1); CHLORIDE 98 MEQ/L (98-107); CREATININE 0.77 MG/DL (0.60-1.30); GLOMERULAR FILTRATION RATE 110 ML/MIN (>89); GLUCOSE,RANDOM 67 MG/DL (74-106); LIPASE 374 U/L (73-393); SODIUM (NA) 132 MEQ/L (136-145)
[2017-12-14 06:50] LABS: ALKALINE PHOSPHATASE 73 U/L (45-117); ALT (GPT) 24 U/L (12-78); TOTAL PROTEIN 6.5 GM/DL (6.4-8.2)
[2017-12-14] MEDS: PANTOPRAZOLE SODIUM 40 MG VIAL IV PUSH SCH (07:17)
[2017-12-14 08:00] VITALS: BP 142/85; PULSE 78; RESP 17; TEMP 98.8; O2SAT 95
[2017-12-14] MEDS: DOCUSATE SODIUM 50 MG/SENNA 8.6 MG TAB PO SCH ×2 (08:03→20:37)
[2017-12-14] MEDS: NICOTINE 7 MG/24 HR PATCH T-DERMAL SCH (08:03)
[2017-12-14] MEDS: SODIUM CHLORIDE 0.9% FLUSH 10 ML FLUSH IV FLUSH SCH ×2 (08:05→20:36)
[2017-12-14] MEDS ORDERED: NALOXONE HCL 0.4 MG/ML AMP IV PUSH PRN (08:45)
[2017-12-14] MEDS ORDERED: ACETAMINOPHEN/HYDROcodone 325 MG/5 MG TAB PO PRN (08:45)
[2017-12-14 08:58] LABS: TARGET CELLS 1+ (NORMAL)
[2017-12-14] MEDS ORDERED: INFLUENZA VIRUS VACCINE (QUADRIVALENT) 0.5 ML SYR IM ONE (10:00)
[2017-12-14] MEDS: ENOXAPARIN SODIUM 40 MG/0.4 ML SYRINGE SQ SCH (10:34)
[2017-12-14] MEDS: ACETAMINOPHEN/HYDROcodone 325 MG/7.5 MG TAB PO PRN ×3 (10:38→18:55)
[2017-12-14 11:56] VITALS: O2SAT 95
[2017-12-14 12:09] VITALS: BP 139/75; PULSE 76; RESP 17; TEMP 99.5; O2SAT 95
--- NOTE | 2017-12-14 12:16 | HHI.FPPN ---
Subjective Remarks Pt seen and examined this morning. Pt with elevated temperature to 100.7 overnight which returned to normal. Vital signs stable this morning. He endorses abdominal pain and requests oral medication. He reports feeling improved. He anticipated speaking with GI regarding colitis. He denies ever having being diagnosed with colitis in the past. Denies joint pain, blood in his stools. He has no additional acute concerns. (Emily Quick MD R3) Objective Vitals Vital Signs Date Time Temp Pulse Resp B/P (MAP) Pulse Ox O2 Delivery O2 Flow Rate FiO2 12/14/17 12:09 99.5 76 17 139/75 (96) 95 12/14/17 11:56 95 12/14/17 08:00 98.8 78 17 142/85 (104) 95 12/14/17 00:00 99.0 74 20 134/77 (96) 96 12/13/17 20:00 100.7 85 20 138/79 (98) 96 12/13/17 16:00 99.9 88 20 136/82 (100) 95 12/13/17 15:24 17 12/13/17 14:28 12/13/17 13:00 77 18 136/74 (94) 97 Room Air I/O 12/13/17 12/13/17 12/13/17 12/14/17 12/14/17 12/14/17 07:00 15:00 23:00 07:00 15:00 23:00 Intake Total 1000 ml 0 ml 0 ml Output Total 600 ml Balance 1000 ml 0 ml -600 ml Intake Oral 0 ml 0 ml IV Total 1000 ml Output Urine Total 600 ml # Voids 2 # Bowel Movements 0 (Emily Quick MD R3) Result Diagram: 12/14/17 0552 12/14/17 0552 Objective Remarks GENERAL: This is a well-developed patient, very pleasant, he is in no acute distress. SKIN: Superficial 5 x 5 cm circular ulcer on left robbins, no erythema, does not appear infected HEAD: Atraumatic. Normocephalic EYES: Extraocular motions intact. No scleral icterus. No injection or drainage. ENT: Nose without bleeding, purulent drainage or septal hematoma. Poor dentition. Airway patent. NECK: Trachea midline. No JVD or lymphadenopathy. Supple, nontender, no meningeal signs. CARDIOVASCULAR: Regular rate and rhythm without murmurs, gallops, or rubs. RESPIRATORY: Clear to auscultation. Breath sounds equal bilaterally. No wheezes , rales, or rhonchi. GASTROINTESTINAL: Abdomen soft, discomfort with palpation of epigastrium, nondistended. MUSCULOSKELETAL: Extremities without clubbing, cyanosis, or edema. No joint tenderness, effusion, or edema noted. No calf tenderness. Negative Homans sign bilaterally. NEUROLOGICAL: Awake and alert. Cranial nerves II through XII intact. Mild hand tremors noted with arm extension. Motor and sensory grossly within normal limits. Normal speech. (Emily Quick MD R3) A/P Assessment and Plan 41-year-old male with past medical history of recurrent pancreatitis secondary to alcohol abuse presents with chief complaint of epigastric abdominal pain and elevated lipase that is consistent with acute on chronic pancreatitis. Differential diagnosis includes gastritis, gastroenteritis, cholecystitis, colitis. He will be admitted to the hospital for administration of IV fluids, antibiotics and pain control. Discharge Planning Anticipate discharge once patient has been cleared by GI and able to tolerate PO. Time frame unclear, pending additional evaluation. (Emily Quick MD R3) Attending Attestation Patient seen and examined. Case reviewed and discussed Agree with plan of care as discussed with me and documented in the resident note. (Kerry Baker MD) Problem List: (1) Colitis ICD Codes: K52.9 - Noninfective gastroenteritis and colitis, unspecified Plan: Abdomen/Pelvis CT 12/13 significant for Very severe colitis of the splenic flexure, infectious vs inflammatory. No associated abscess. This is a new finding compared to abdomen/pelvis from July 2017. Pt met SIRS criteria at time of admission and a sepsis workup was initiated. Vitals currently stable. GI consulted for further evaluation and management, appreciate recommendations. -Lactic acid 0.7 -Zosyn IV 3.375 mg every 6 hours (12/13- ) (2) Chronic alcoholic pancreatitis ICD Codes: K86.0 - Alcohol-induced chronic pancreatitis Status: Acute Plan: Acute on chronic pancreatitis -Recurrent secondary to alcohol dependence -Lipase 1010 on admission, decreased to 374 today -Supportive care with IV fluids, see below -See diet below -[place] 5 for pain 3-5, 7.5 for pain 6-10 -Dilaudid 0.5 mg Q4H IV as needed for breakthrough Imaging: Abdomen/pelvis CT 12/13/17: Mild superimposed acute pancreatitis possible in the proper clinical setting. No pseudocyst. (3) Superficial ulcer of skin ICD Codes: L98.491 - Non-pressure chronic ulcer of skin of other sites limited to breakdown of skin Plan: -Does not appear infected -Consult wound care nurse to recommend dressing changes and management (4) Decreased hemoglobin ICD Codes: R71.0 - Precipitous drop in hematocrit Plan: Pt with decrease in hemoglobin from 13.5 to 11.5. Likely dilutional, pt on IV fluids as management for pancreatitis. No active bleeding, pt denies bloody stools. Continue to monitor (5) chronic medical problems Plan: Alcohol abuse: CIWA protocol, thiamine IV, multivitamin IV - switched to by mouth once tolerating oral intake Smoking: Nicotine patch 7mg, change daily (6) FEN/DVT PPX/GI PPX/Nursing Orders Plan: Fluids: NS at 1.5 maintenance Electrolytes: Will monitor and replace as needed. Slight hyponatremia of 132 noted on admission, expected to normalize with fluids Nutrition: NPO, consider advancing as tolerated DVT Prophylaxis: Lovenox 40mg subcutaneous daily GI Prophylaxis: Protonix 40mg IV every 24 hours Constipation prophylaxis: Pericolace 1 tab PO BID PRN Medications Tylenol 650 mg IV every 6 hours when necessary temperature greater than 100.4F Zofran 4 mg IV push every 6 hours when necessary nausea vomiting Vasotec 1.25 mg IV PRN SBP greater than 170 or DBP greater than 100 -Vitals Q4h -Monitor I's and O's -Fall precautions -Neurochecks -Seizure precautions -Activity bed rest -PT to assist with ambulation -Case management consult to assist with discharge disposition and alcohol abuse DC plan (Emily Quick MD R3) Emily Quick MD R3 Dec 14, 2017 12:16 Kerry Baker MD Dec 23, 2017 16:22
[2017-12-14] MEDS: MULTIVITAMIN INJ 10 ML, FOLIC ACID INJ 1 MG in SODIUM CHLORID 0.9% 500 ML INJ 500 ML IV SCH (12:30)
[2017-12-14] MEDS ORDERED: CIPROFLOXACIN 400 MG PREMIX 200 ML IV SCH (14:00)
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
[2017-12-14] MEDS: metroNIDAZOLE 500 MG INJ 100 ML IV SCH ×2 (15:28→22:50)
[2017-12-14 16:00] VITALS: BP 135/74; PULSE 84; RESP 17; TEMP 99; O2SAT 93
[2017-12-14] MEDS: CIPROFLOXACIN 400 MG PREMIX 200 ML IV SCH (16:30)
[2017-12-14] MEDS ORDERED: MAGNESIUM CITRATE SOLN 300 ML BTL PO ONE ×2 (18:15→20:00)
[2017-12-14 20:00] VITALS: BP 132/66; PULSE 91; RESP 18; TEMP 100.2; O2SAT 97
[2017-12-14] MEDS: REMOVE OLD PATCH T-DERMAL SCH (20:37)
[2017-12-15] VITALS: BP 138/84; PULSE 94; RESP 20; TEMP 100.3; O2SAT 94
[2017-12-15] MEDS: SODIUM CHLOR 0.9% 1000 ML INJ 1,000 ML IV SCH ×4 (00:39→20:56)
[2017-12-15] MEDS: LORazepam 1 MG TAB PO PRN ×2 (00:39→05:03)
[2017-12-15] MEDS: ACETAMINOPHEN/HYDROcodone 325 MG/7.5 MG TAB PO PRN ×5 (00:40→23:23)
[2017-12-15] MEDS ORDERED: SODIUM CHLORID 0.9% 500 ML IV PRN (02:30)
[2017-12-15] MEDS ORDERED: POVIDONE IODINE 5% (ANTISEPSIS KIT) 4 APPLICATIONS EACH NARE PRN (02:30)
[2017-12-15] MEDS ORDERED: CHLORHEXIDINE GLUCONATE 2 % 1 PACK (2 CLOTHS) TOPICAL PRN (02:30)
[2017-12-15] MEDS ORDERED: LACTATED RINGER'S 1000 ML IV PRN (02:30)
[2017-12-15] MEDS: CIPROFLOXACIN 400 MG PREMIX 200 ML IV SCH ×2 (03:07→17:43)
[2017-12-15 04:04] VITALS: TEMP 99
[2017-12-15] MEDS: PANTOPRAZOLE SODIUM 40 MG VIAL IV PUSH SCH (04:53)
[2017-12-15] MEDS: metroNIDAZOLE 500 MG INJ 100 ML IV SCH ×3 (04:53→20:29)
[2017-12-15] MEDS: HYDROmorphone HCL PF 2 MG/ML VIAL IV PUSH PRN ×2 (07:56→20:28)
[2017-12-15 08:00] VITALS: BP 132/79; PULSE 79; RESP 16; TEMP 98.3; O2SAT 96
[2017-12-15 08:00] LABS: AUTOMATED NEUTROPHIL # 5.8 TH/MM3 (1.8-7.7); BASOPHIL # 0.1 TH/MM3 (0-0.2); BASOPHIL % 0.8 % (0.0-2.0); EOSINOPHIL # 0.1 TH/MM3 (0-0.4); EOSINOPHIL % 1.5 % (0.0-4.0); HEMATOCRIT 34.3 % (39.0-51.0); HEMOGLOBIN 11.7 GM/DL (13.0-17.0); LYMPH % 13.2 % (9.0-44.0); LYMPHOCYTE # 1.2 TH/MM3 (1.0-4.8); MEAN CELL VOLUME 96.3 FL (80.0-100.0); MEAN CORPUSCULAR HEMOGLOBIN 32.7 PG (27.0-34.0); MEAN PLATELET VOLUME 8.9 FL (7.0-11.0); MONO % 20.3 % (0.0-8.0); MONOCYTE # 1.8 TH/MM3 (0-0.9); NEUT % 64.2 % (16.0-70.0); PLATELET COUNT 210 TH/MM3 (150-450); RED BLOOD COUNT 3.57 MIL/MM3 (4.50-5.90); RED CELL DISTRIBUTION WIDTH 17.3 % (11.6-17.2)
[2017-12-15 08:07] LABS: ALT (GPT) 25 U/L (12-78); AST (GOT) 18 U/L (15-37); BICARBONATE 27.3 MEQ/L (21.0-32.0); BLOOD UREA NITROGEN 2 MG/DL (7-18); CALCIUM 8.7 MG/DL (8.5-10.1); CHLORIDE 103 MEQ/L (98-107); CREATININE 0.51 MG/DL (0.60-1.30); GLOMERULAR FILTRATION RATE 177 ML/MIN (>89); GLUCOSE,RANDOM 89 MG/DL (74-106); LIPASE 221 U/L (73-393); SODIUM (NA) 136 MEQ/L (136-145)
[2017-12-15 08:10] LABS: ALKALINE PHOSPHATASE 46 U/L (45-117); TOTAL BILIRUBIN ADULT 0.5 MG/DL (0.2-1.0); TOTAL PROTEIN 7.2 GM/DL (6.4-8.2)
[2017-12-15] MEDS: DOCUSATE SODIUM 50 MG/SENNA 8.6 MG TAB PO SCH ×2 (08:23→20:29)
[2017-12-15] MEDS: NICOTINE 7 MG/24 HR PATCH T-DERMAL SCH (08:23)
[2017-12-15] MEDS: SODIUM CHLORIDE 0.9% FLUSH 10 ML FLUSH IV FLUSH SCH ×2 (08:24→20:29)
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
--- NOTE | 2017-12-15 11:14 | HHI.FPPN ---
Subjective Remarks Mr Mathews had no acute events last night and slept well. He still has some left sided abdominal pain with worst being in LLQ. He is tolerating liquids w/o N/V and his left leg wound has improved. Pain is controlled. He is impatient about then GI will come to get him for the colonoscopy and/or EGD today. Denies CP, SOB, diarrhea, DVT pain. (Cirilo Montague MD R1) Objective Vitals Vital Signs Date Time Temp Pulse Resp B/P (MAP) Pulse Ox O2 Delivery O2 Flow Rate FiO2 12/15/17 08:24 16 12/15/17 04:04 99.0 12/15/17 00:00 100.3 94 20 138/84 (102) 94 12/14/17 21:48 21 12/14/17 20:00 100.2 91 18 132/66 (88) 97 12/14/17 16:00 99.0 84 17 135/74 (94) 93 12/14/17 15:56 18 12/14/17 12:09 99.5 76 17 139/75 (96) 95 12/14/17 11:56 95 I/O 12/14/17 12/14/17 12/14/17 12/15/17 12/15/17 12/15/17 07:00 15:00 23:00 07:00 15:00 23:00 Intake Total 0 ml 1100 ml 400 ml 1000 ml Output Total 600 ml Balance -600 ml 1100 ml 400 ml 1000 ml Intake Oral 0 ml 1100 ml 0 ml IV Total 400 ml 1000 ml Output Urine Total 600 ml # Voids 3 4 # Bowel Movements 0 1 1 (Cirilo Montague MD R1) Result Diagram: 12/15/17 0643 12/15/17 0643 Imaging Last 48 hours Impressions Chest X-Ray 12/13/172228 Signed Impressions: Service Date/Time: Wednesday, December 13, 2017 22:47 - CONCLUSION: No acute disease. No significant change has occurred. Db Boyd MD Objective Remarks GENERAL: This is a well-developed patient, very pleasant, he is in no acute distress. SKIN: Superficial 5 x 5 cm circular ulcer on left robbins, no erythema, does not appear infected--resolving; no other rashes or lesions HEAD: Atraumatic. Normocephalic EYES: Extraocular motions intact. No scleral icterus. No injection or drainage. ENT: Nose without bleeding, purulent drainage or septal hematoma. Poor dentition. Airway patent. NECK: Trachea midline. No JVD or lymphadenopathy. Supple, nontender, no meningeal signs. CARDIOVASCULAR: Regular rate and rhythm without murmur, gallop, or rub. RESPIRATORY: Clear to auscultation. Breath sounds equal bilaterally. No wheezes , rales, or rhonchi. GASTROINTESTINAL: Abdomen soft, discomfort with palpation of left side of abdomen, nondistended. Normal BS. Midline vertical surgical scar well healed. MUSCULOSKELETAL: Extremities without clubbing, cyanosis, or edema. No joint tenderness, effusion, or edema noted. No calf tenderness. Negative Homans sign bilaterally. NEUROLOGICAL: Awake and alert. Cranial nerves II through XII intact. Motor and sensory grossly within normal limits. Normal speech. Medications and IVs Current Medications Medications (Trade) Dose Ordered Sig/Ventura Route Start Time Stop Time Status Last Admin Sodium Chloride 1,000 ml @ 165 mls/hr Q6H4M IV 12/13/17 10:30 12/15/17 08:48 (NS Flush) 2 ml UNSCH PRN IV FLUSH 12/13/17 10:00 (NS Flush) 2 ml BID IV FLUSH 12/13/17 10:00 12/14/17 08:05 (Zofran Inj) 4 mg Q6H PRN IV PUSH 12/13/17 10:00 (Lovenox Inj) 40 mg Q24H SQ 12/13/17 11:00 12/15/17 12:20 (Dilaudid Pf Inj) 0.5 mg Q4HR PRN IV PUSH 12/13/17 10:30 12/15/17 07:56 Multivitamins 10 ml/Folic Acid 1 mg/Sodium Chloride 510.2 ml @ 125 mls/hr Q24H IV 12/13/17 13:00 12/18/17 12:59 12/15/17 13:21 (Vitamin B1) 100 mg DAILY PO 12/16/17 09:00 (Romazicon Inj) 0.2 mg Q1M PRN IV PUSH 12/13/17 10:45 (Ativan) 1 mg Q4H PRN PO 12/13/17 10:45 12/15/17 05:03 (Ativan Inj) 1 mg Q4H PRN IV PUSH 12/13/17 10:45 12/13/17 21:37 (Ativan) 2 mg Q2H PRN PO 12/13/17 10:45 (Ativan Inj) 2 mg Q2H PRN IV PUSH 12/13/17 10:45 (Ativan Inj) 2 mg Q1H PRN IV PUSH 12/13/17 10:45 (Ativan Inj) 2 mg Q15M PRN IV PUSH 12/13/17 10:45 (Haldol Inj) 2 mg Q15M PRN IM 12/13/17 10:45 (Habitrol 7 Mg Patch.24 Hr) 1 patch DAILY T-DERMAL 12/13/17 11:45 12/15/17 08:23 Miscellaneous Information 1 HS T-DERMAL 12/13/17 21:00 12/14/17 20:37 (Protonix Inj) 40 mg Q24H IV PUSH 12/14/17 06:00 12/15/17 04:53 (Alaina-Colace) 1 tab BID PO 12/14/17 09:00 12/15/17 08:23 Acetaminophen 65 ml @ 400 mls/hr Q6H PRN IV 12/14/17 05:00 (Vasotec Inj) 1.25 mg Q6H PRN IV PUSH 12/14/17 05:00 (Saxton 5-325 Mg) 1 tab Q4H PRN PO 12/14/17 08:45 (Saxton 7.5-325 Mg) 1 tab Q4H PRN PO 12/14/17 08:45 12/15/17 12:20 (Narcan Inj) 0.4 mg UNSCH PRN IV PUSH 12/14/17 08:45 Metronidazole 100 ml @ 100 mls/hr Q8H IV 12/14/17 14:00 12/15/17 13:26 Ciprofloxacin/ Dextrose 200 ml @ 200 mls/hr Q12H IV 12/14/17 15:00 12/15/17 03:07 Lactated Ringer's 1,000 ml @ 30 mls/hr Q24H PRN IV 12/15/17 02:30 12/18/17 02:29 Sodium Chloride 500 ml @ 30 mls/hr [id number] PRN IV 12/15/17 02:30 12/18/17 02:29 (Betadine 5% Antisepsis Kit) 1 applic INSECTICIDE EXPERT PRN EACH NARE 12/15/17 02:30 12/18/17 02:29 (Chlorhexidine 2% Cloth) 3 pack INSECTICIDE EXPERT PRN TOPICAL 12/15/17 02:30 12/18/17 02:29 (Cirilo Montague MD R1) Urinary Catheter: No (Cirilo Montague MD R1) A/P Assessment and Plan 41-year-old male with past medical history of recurrent pancreatitis secondary to alcohol abuse presents with chief complaint of epigastric abdominal pain and elevated lipase that is consistent with acute on chronic pancreatitis. Differential diagnosis includes gastritis, gastroenteritis, cholecystitis, colitis. He will be admitted to the hospital for administration of IV fluids, antibiotics and pain control. Pt seen with Dr Mcneill and dw Dr Baker Discharge Planning Anticipate discharge once patient has been cleared by GI and able to tolerate PO. Time frame unclear, pending additional evaluation. (Cirilo Montague MD R1) Attending Attestation Patient seen and examined. Case reviewed and discussed Agree with plan of care as discussed with me and documented in the resident note. (Kerry Baker MD) Problem List: (1) Colitis ICD Codes: K52.9 - Noninfective gastroenteritis and colitis, unspecified Plan: Abdomen/Pelvis CT 12/13 significant for Very severe colitis of the splenic flexure, infectious vs inflammatory. No associated abscess. This is a new finding compared to abdomen/pelvis from July 2017. Pt met SIRS criteria at time of admission and a sepsis workup was initiated. Vitals currently stable. GI consulted for further evaluation and management, appreciate recommendations. -Lactic acid 0.7 -Zosyn IV 3.375 mg every 6 hours (12/13-12/14) -Cipro 400mg IV q12h (12/14- ) -Flagyl 500mg IV q8h (12/14- ) -Colonoscopy 12/15 planned -EGD 12/15 planned (2) Chronic alcoholic pancreatitis ICD Codes: K86.0 - Alcohol-induced chronic pancreatitis Status: Acute Plan: Acute on chronic pancreatitis -Recurrent secondary to alcohol dependence -Lipase 1010 on admission, decreased to 221 today -Supportive care with IV fluids, see below -See diet below -Saxton 5 for pain 3-5, 7.5 for pain 6-10 -Dilaudid 0.5 mg Q4H IV as needed for breakthrough Imaging: Abdomen/pelvis CT 12/13/17: Mild superimposed acute pancreatitis possible in the proper clinical setting. No pseudocyst. (3) Superficial ulcer of skin ICD Codes: L98.491 - Non-pressure chronic ulcer of skin of other sites limited to breakdown of skin Plan: -Does not appear infected -Consult wound care nurse to recommend dressing changes and management (4) Decreased hemoglobin ICD Codes: R71.0 - Precipitous drop in hematocrit Plan: Pt with decrease in hemoglobin from 13.5 to 11.7 Likely dilutional, pt on IV fluids as management for pancreatitis. No active bleeding, pt denies bloody stools. Continue to monitor (5) chronic medical problems Plan: Alcohol abuse: CIWA protocol, thiamine IV, multivitamin IV - switched to by mouth once tolerating oral intake - CIWA score 10 at 2030 last night but 0 this morning Smoking: Nicotine patch 7mg, change daily (6) FEN/DVT PPX/GI PPX/Nursing Orders Plan: Fluids: NS at 1.5 maintenance Electrolytes: Will monitor and replace as needed. Slight hyponatremia of 132 noted on admission has normalized with fluids Nutrition: NPO, will advance following procedures today DVT Prophylaxis: Lovenox 40mg subcutaneous daily GI Prophylaxis: Protonix 40mg IV every 24 hours Constipation prophylaxis: Pericolace 1 tab PO BID PRN Medications Tylenol 650 mg IV every 6 hours when necessary temperature greater than 100.4F Zofran 4 mg IV push every 6 hours when necessary nausea vomiting Vasotec 1.25 mg IV PRN SBP greater than 170 or DBP greater than 100 -Vitals Q4h -Monitor I's and O's -Fall precautions -Neurochecks -Seizure precautions -Activity bed rest -PT to assist with ambulation -Case management consult to assist with discharge disposition and alcohol abuse DC plan (Cirilo Montague MD R1) Cirilo Montague MD R1 Dec 15, 2017 11:14 Kerry Baker MD Dec 23, 2017 16:22
[2017-12-15 12:00] VITALS: BP 134/82; PULSE 77; RESP 16; TEMP 98.5; O2SAT 96
[2017-12-15] MEDS ORDERED: PROPOFOL 200 MG/20 ML AMP IV ONE (12:00)
[2017-12-15] MEDS ORDERED: GLYCOPYRROLATE 1 MG/5 ML SYRINGE IV PUSH ONE (12:00)
[2017-12-15] MEDS ORDERED: LIDOCAINE HCL 1% PF 5 ML SYRINGE OTHER ONE (12:00)
[2017-12-15] MEDS: THIAMINE INJ 100 MG in SODIUM CHLORIDE 0.9% INJ 100 ML IV SCH (12:20)
[2017-12-15] MEDS: ENOXAPARIN SODIUM 40 MG/0.4 ML SYRINGE SQ SCH (12:20)
[2017-12-15] MEDS: MULTIVITAMIN INJ 10 ML, FOLIC ACID INJ 1 MG in SODIUM CHLORID 0.9% 500 ML INJ 500 ML IV SCH (13:21)
[2017-12-15 16:00] VITALS: BP 139/81; PULSE 88; RESP 16; TEMP 99.2; O2SAT 96
[2017-12-15] MEDS ORDERED: MAGNESIUM CITRATE SOLN 300 ML BTL PO ONE (17:15)
--- NOTE | 2017-12-15 17:17 | PD.PROCEDR ---
GI Procedure PROCEDURE PERFORMED EGD with biopsy followed by colonoscopy INDICATION FOR PROCEDURE Anemia, abdominal pain, abnormal findings on CT suggestive of colitis, reflux, history of pancreatitis PROCEDURE: The procedure, risks and benefits were discussed with Mr. Ibanez and informed consent was obtained. Anesthesia sedated him with Diprivan. He was placed in the left lateral decubitus position. EGD: The Pentax videoscope was introduced through the oropharynx and advanced to the second portion of the duodenum under direct visualization. Retroflexion was performed in the stomach. FINDINGS: Esophagus there was a long segment of Sierra's noted from 34-40 cm multiple biopsies taken from different levels otherwise unremarkable Stomach there was patchy erythema in the antrum but no ulcerations or erosions no blood or bleeding antral biopsies were taken for further evaluation Duodenum this was normal Colonoscopy: The Pentax videoscope was introduced through the rectum and advanced to cecum where the ileocecal valve and appendiceal orifice were identified. Retroflexion was performed in the rectum. Colonic prep was poor FINDINGS: As the scope was slowly withdrawn colonic mucosa was carefully inspected the evaluation was extremely limited due to poor prep what little mucosa that was seen was basically unremarkable no retroflexion was done and rectal examination unremarkable ESTIMATED BLOOD LOSS: None SPECIMENS REMOVED: Esophageal and gastric biopsies COMPLICATIONS: None IMPRESSION: Sierra's esophagus, long segment Gastritis Incomplete colonoscopy PLAN: Await biopsies PPI Repeat colonoscopy tomorrow EGD in 1 year Vinnie Crouch MD Dec 15, 2017 17:17
[2017-12-15 20:00] VITALS: BP 131/76; PULSE 75; RESP 20; TEMP 97.9; O2SAT 97
[2017-12-15] MEDS: REMOVE OLD PATCH T-DERMAL SCH (21:00)
[2017-12-16] VITALS: BP 126/83; PULSE 84; RESP 18; TEMP 97.9; O2SAT 96
[2017-12-16] MEDS: SODIUM CHLOR 0.9% 1000 ML INJ 1,000 ML IV SCH ×4 (03:00→21:12)
[2017-12-16] MEDS: CIPROFLOXACIN 400 MG PREMIX 200 ML IV SCH ×2 (04:00→16:46)
[2017-12-16] MEDS: ACETAMINOPHEN/HYDROcodone 325 MG/7.5 MG TAB PO PRN ×5 (04:01→21:17)
[2017-12-16] MEDS ORDERED: MAGNESIUM CITRATE SOLN 300 ML BTL PO ONE (05:00)
[2017-12-16] MEDS: metroNIDAZOLE 500 MG INJ 100 ML IV SCH ×3 (05:22→18:00)
[2017-12-16] MEDS: PANTOPRAZOLE SODIUM 40 MG VIAL IV PUSH SCH (05:22)
[2017-12-16 08:00] VITALS: BP 121/78; PULSE 78; RESP 16; TEMP 98.2; O2SAT 96
[2017-12-16] MEDS: DOCUSATE SODIUM 50 MG/SENNA 8.6 MG TAB PO SCH ×2 (08:13→21:17)
[2017-12-16] MEDS: THIAMINE HCL 100 MG TAB PO SCH (08:13)
[2017-12-16] MEDS: SODIUM CHLORIDE 0.9% FLUSH 10 ML FLUSH IV FLUSH SCH ×2 (08:13→21:00)
[2017-12-16] MEDS: NICOTINE 7 MG/24 HR PATCH T-DERMAL SCH (08:13)
[2017-12-16 08:35] LABS: HEMATOCRIT 34.6 % (39.0-51.0); HEMOGLOBIN 11.4 GM/DL (13.0-17.0); MEAN CELL VOLUME 97.3 FL (80.0-100.0); MEAN CORPUSCULAR HGB CONC 32.9 % (32.0-36.0); MEAN PLATELET VOLUME 8.6 FL (7.0-11.0); PLATELET COUNT 222 TH/MM3 (150-450); RED BLOOD COUNT 3.56 MIL/MM3 (4.50-5.90); WHITE BLOOD COUNT 7.3 TH/MM3 (4.0-11.0)
--- NOTE | 2017-12-16 08:48 | HHI.FPPN ---
Subjective Remarks Mr Mathews had no acute events overnight. He slept well after his procedure and has some soreness in his LLQ and lesser pain across the lower abdomen into his RLQ. He took his bowel prep yesterday and last night and feels like he is empty. He had >7 BMs yesterday and a couple overnight. No nausea and vomiting. No CP, SOB and leg pain. He feels like his leg wounds are much better. (Cirilo Montague MD R1) Objective Vitals Vital Signs Date Time Temp Pulse Resp B/P (MAP) Pulse Ox O2 Delivery O2 Flow Rate FiO2 12/16/17 08:00 98.2 78 16 121/78 (92) 96 12/16/17 05:22 20 12/16/17 00:00 97.9 84 18 126/83 (97) 96 12/15/17 20:58 20 12/15/17 20:00 97.9 75 20 131/76 (94) 97 12/15/17 17:07 98.9 77 18 137/82 (100) 98 12/15/17 16:00 99.2 88 16 139/81 (100) 96 12/15/17 12:00 98.5 77 16 134/82 (99) 96 I/O 12/15/17 12/15/17 12/15/17 12/16/17 12/16/17 12/16/17 07:00 15:00 23:00 07:00 15:00 23:00 Intake Total 400 ml 1100 ml 100 ml Balance 400 ml 1100 ml 100 ml Intake Oral 0 ml IV Total 400 ml 1100 ml Other 100 ml # Voids 4 10 # Bowel Movements 1 4 (Cirilo Montague MD R1) Result Diagram: 12/16/17 0641 12/15/17 0643 Objective Remarks GENERAL: This is a well-developed patient in no acute distress. SKIN: Superficial 5 x 5 cm circular ulcer on left robbins covered in bandage, no erythema, does not appear infected--resolving; 2 cm x 2 cm resolving ulcer over right robbins. no other rashes or lesions HEAD: Atraumatic. Normocephalic EYES: Extraocular motions intact. No scleral icterus. No injection or drainage. ENT: Nose without bleeding, drainage, rhinorrhea. Poor dentition. Airway patent. NECK: Trachea midline. No lymphadenopathy. Supple, nontender, no meningeal signs. CARDIOVASCULAR: Regular rate and rhythm without murmur, gallop, or rub. RESPIRATORY: Clear to auscultation. Breath sounds equal bilaterally. No wheezes , rales, or rhonchi. GASTROINTESTINAL: Abdomen soft, discomfort with palpation of left side of abdomen, nondistended. Normal BS. Midline vertical surgical scar well healed. MUSCULOSKELETAL: Extremities without clubbing, cyanosis, or edema. No joint tenderness, effusion, or edema noted. No calf tenderness. NEUROLOGICAL: Awake and alert. Cranial nerves II through XII intact. Motor and sensory grossly within normal limits. Normal speech. Procedures Colonoscopy 12/15 and 12/16 EGD 12/15 Medications and IVs Current Medications Medications (Trade) Dose Ordered Sig/Vetnura Route Start Time Stop Time Status Last Admin Sodium Chloride 1,000 ml @ 165 mls/hr Q6H4M IV 12/13/17 10:30 12/16/17 09:09 (NS Flush) 2 ml UNSCH PRN IV FLUSH 12/13/17 10:00 (NS Flush) 2 ml BID IV FLUSH 12/13/17 10:00 12/14/17 08:05 (Zofran Inj) 4 mg Q6H PRN IV PUSH 12/13/17 10:00 12/15/17 23:25 (Lovenox Inj) 40 mg Q24H SQ 12/13/17 11:00 12/15/17 12:20 (Dilaudid Pf Inj) 0.5 mg Q4HR PRN IV PUSH 12/13/17 10:30 12/15/17 20:28 Multivitamins 10 ml/Folic Acid 1 mg/Sodium Chloride 510.2 ml @ 125 mls/hr Q24H IV 12/13/17 13:00 12/18/17 12:59 12/15/17 13:21 (Vitamin B1) 100 mg DAILY PO 12/16/17 09:00 12/16/17 08:13 (Romazicon Inj) 0.2 mg Q1M PRN IV PUSH 12/13/17 10:45 (Ativan) 1 mg Q4H PRN PO 12/13/17 10:45 12/15/17 05:03 (Ativan Inj) 1 mg Q4H PRN IV PUSH 12/13/17 10:45 12/13/17 21:37 (Ativan) 2 mg Q2H PRN PO 12/13/17 10:45 (Ativan Inj) 2 mg Q2H PRN IV PUSH 12/13/17 10:45 (Ativan Inj) 2 mg Q1H PRN IV PUSH 12/13/17 10:45 (Ativan Inj) 2 mg Q15M PRN IV PUSH 12/13/17 10:45 (Haldol Inj) 2 mg Q15M PRN IM 12/13/17 10:45 (Habitrol 7 Mg Patch.24 Hr) 1 patch DAILY T-DERMAL 12/13/17 11:45 12/16/17 08:13 Miscellaneous Information 1 HS T-DERMAL 12/13/17 21:00 12/15/17 21:00 (Protonix Inj) 40 mg Q24H IV PUSH 12/14/17 06:00 12/16/17 05:22 (Alaina-Colace) 1 tab BID PO 12/14/17 09:00 12/16/17 08:13 Acetaminophen 65 ml @ 400 mls/hr Q6H PRN IV 12/14/17 05:00 (Vasotec Inj) 1.25 mg Q6H PRN IV PUSH 12/14/17 05:00 (Graford 5-325 Mg) 1 tab Q4H PRN PO 12/14/17 08:45 (Graford 7.5-325 Mg) 1 tab Q4H PRN PO 12/14/17 08:45 12/16/17 08:16 (Narcan Inj) 0.4 mg UNSCH PRN IV PUSH 12/14/17 08:45 Metronidazole 100 ml @ 100 mls/hr Q8H IV 12/14/17 14:00 12/16/17 05:22 Ciprofloxacin/ Dextrose 200 ml @ 200 mls/hr Q12H IV 12/14/17 15:00 12/16/17 04:00 Lactated Ringer's 1,000 ml @ 30 mls/hr Q24H PRN IV 12/15/17 02:30 12/18/17 02:29 Sodium Chloride 500 ml @ 30 mls/hr [id number] PRN IV 12/15/17 02:30 12/18/17 02:29 (Betadine 5% Antisepsis Kit) 1 applic BIOFUELS OPERATIONS MANAGER PRN EACH NARE 12/15/17 02:30 1/18/18 02:29 (Chlorhexidine 2% Cloth) 3 pack BIOFUELS OPERATIONS MANAGER PRN TOPICAL 12/15/17 02:30 12/18/17 02:29 (Cirilo Montague MD R1) Urinary Catheter: No (Cirilo Montague MD R1) A/P Assessment and Plan 41-year-old male with past medical history of recurrent pancreatitis secondary to alcohol abuse presents with chief complaint of epigastric abdominal pain and elevated lipase that is consistent with acute on chronic pancreatitis. Differential diagnosis includes gastritis, gastroenteritis, cholecystitis, colitis. He will be admitted to the hospital for administration of IV fluids, antibiotics and pain control. EGD 12/15 reveals Sierra's esophagus and gastritis Colonoscopy performed 12/15 but poor study due to poor bowel prep; colonoscopy being re-done after bowel prep 12/[address] Mcneill and zi Baker Discharge Planning Anticipate discharge once patient has been cleared by GI and able to tolerate PO. Time frame unclear, pending additional evaluation. (Cirilo Montague MD R1) Attending Attestation Patient seen and examined. Case reviewed and discussed Agree with plan of care as discussed with me and documented in the resident note. (Kerry Baker MD) Problem List: (1) Colitis ICD Codes: K52.9 - Noninfective gastroenteritis and colitis, unspecified Plan: Abdomen/Pelvis CT 12/13 significant for Very severe colitis of the splenic flexure, infectious vs inflammatory. No associated abscess. This is a new finding compared to abdomen/pelvis from July 2017. Pt met SIRS criteria at time of admission and a sepsis workup was initiated. Vitals currently stable. WBC 7.3 today GI consulted for further evaluation and management, appreciate recommendations. -Lactic acid 0.7 -Zosyn IV 3.375 mg every 6 hours (12/13-12/14) -Cipro 400mg IV q12h (12/14- ) -Flagyl 500mg IV q8h (12/14- ) -Colonoscopy 12/15 with poor prep; Dr Crouch re-doing colonoscopy 12/16 -EGD 12/15 showing Sierra's esophagus and gastritis -Strict I/Os -Zofran 4mg IV PRN -NPO until after procedure today, then cleared to go home per Dr Crouch (2) Chronic alcoholic pancreatitis ICD Codes: K86.0 - Alcohol-induced chronic pancreatitis Status: Acute Plan: Acute on chronic pancreatitis -Recurrent secondary to alcohol dependence -Lipase 1010 on admission, decreased to 88 today -Supportive care with IV fluids, see below -See diet below -Graford 5 for pain 3-5, 7.5 for pain 6-10 -Dilaudid 0.5 mg Q4H IV as needed for breakthrough Imaging: Abdomen/pelvis CT 12/13/17: Mild superimposed acute pancreatitis possible in the proper clinical setting. No pseudocyst. (3) Superficial ulcer of skin ICD Codes: L98.491 - Non-pressure chronic ulcer of skin of other sites limited to breakdown of skin Plan: -Does not appear infected -Consult wound care nurse to recommend dressing changes and management (4) Decreased hemoglobin ICD Codes: R71.0 - Precipitous drop in hematocrit Plan: Pt with decrease in hemoglobin from 13.5 to 11.7 and stable today at 11.4 ; VSS Likely dilutional, pt on IV fluids as management for pancreatitis. No active bleeding, pt denies bloody stools. Continue to monitor (5) chronic medical problems Plan: Alcohol abuse: CIWA protocol, thiamine IV, multivitamin IV - switched to by mouth once tolerating oral intake - CIWA score 0 this morning Smoking: Nicotine patch 7mg, change daily (6) FEN/DVT PPX/GI PPX/Nursing Orders Plan: Fluids: NS at 1.5 maintenance Electrolytes: Will monitor and replace as needed. Slight hyponatremia of 132 noted on admission has normalized with fluids Nutrition: NPO, will advance following procedures today DVT Prophylaxis: Lovenox 40mg subcutaneous daily GI Prophylaxis: Protonix 40mg IV every 24 hours Constipation prophylaxis: Pericolace 1 tab PO BID PRN Medications Tylenol 650 mg IV every 6 hours when necessary temperature greater than 100.4F Zofran 4 mg IV push every 6 hours when necessary nausea vomiting Vasotec 1.25 mg IV PRN SBP greater than 170 or DBP greater than 100 -Vitals Q4h -Monitor I's and O's -Fall precautions -Neurochecks -Seizure precautions -Activity bed rest -PT to assist with ambulation -Case management consult to assist with discharge disposition and alcohol abuse DC plan Dispo: can discharge following colonoscopy per Dr Crouch; might be tomorrow AM due to late procedure today (Cirilo Montague MD R1) Cirilo Montague MD R1 Dec 16, 2017 08:48 Kerry Baker MD Dec 23, 2017 16:24
[2017-12-16 09:02] LABS: BICARBONATE 24.7 MEQ/L (21.0-32.0); CALCIUM 8.5 MG/DL (8.5-10.1); CREATININE 0.5 MG/DL (0.60-1.30)
[2017-12-16] MEDS: ENOXAPARIN SODIUM 40 MG/0.4 ML SYRINGE SQ SCH (10:13)
[2017-12-16 12:00] VITALS: BP 130/76; PULSE 64; RESP 16; TEMP 98.2; O2SAT 96
[2017-12-16] MEDS ORDERED: LIDOCAINE HCL 1% PF 5 ML SYRINGE OTHER ONE (12:00)
[2017-12-16] MEDS ORDERED: PROPOFOL 200 MG/20 ML AMP IV ONE (12:00)
[2017-12-16] MEDS: MULTIVITAMIN INJ 10 ML, FOLIC ACID INJ 1 MG in SODIUM CHLORID 0.9% 500 ML INJ 500 ML IV SCH (12:31)
--- NOTE | 2017-12-16 16:28 | PD.PROCEDR ---
GI Procedure PROCEDURE PERFORMED Colonoscopy INDICATION FOR PROCEDURE Anemia, abnormal colon on CT PROCEDURE: The procedure, risks and benefits were discussed with Mr. Ibanez and informed consent was obtained. Anesthesia sedated him with Diprivan. He was placed in the left lateral decubitus position. Colonoscopy: The Pentax videoscope was introduced through the rectum and advanced to cecum where the ileocecal valve and appendiceal orifice were identified. Retroflexion was performed in the rectum. Colonic prep was good FINDINGS: Colonic withdrawal time greater than 6 minutes as the scope was slowly withdrawn colonic mucosa was carefully inspected this was noted to be unremarkable and within normal limits all the way through so as retroflexion and rectal examination the patient was noted to have mild diverticulosis of the sigmoid region ESTIMATED BLOOD LOSS: None SPECIMENS REMOVED: None COMPLICATIONS: None IMPRESSION: Mild sigmoid diverticulosis otherwise unremarkable colon PLAN: High-fiber diet Avoid nuts seeds and popcorn Colonoscopy in 10 years Advanced diet as tolerated Okay for discharge from a GI standpoint Vinnie Crouch MD Dec 16, 2017 16:28
[2017-12-16 17:50] VITALS: O2SAT 97
[2017-12-16 20:00] VITALS: BP 118/82; PULSE 82; RESP 18; TEMP 97.2; O2SAT 98
[2017-12-16] MEDS: REMOVE OLD PATCH T-DERMAL SCH (21:00)
[2017-12-17 00:09] VITALS: BP 130/79; PULSE 69; RESP 20; TEMP 98.9; O2SAT 98
[2017-12-17] MEDS: SODIUM CHLOR 0.9% 1000 ML INJ 1,000 ML IV SCH ×2 (00:39→08:35)
[2017-12-17] MEDS: ACETAMINOPHEN/HYDROcodone 325 MG/7.5 MG TAB PO PRN ×2 (00:44→08:31)
[2017-12-17] MEDS: CIPROFLOXACIN 400 MG PREMIX 200 ML IV SCH (03:17)
[2017-12-17] MEDS: PANTOPRAZOLE SODIUM 40 MG VIAL IV PUSH SCH (06:09)
[2017-12-17] MEDS: metroNIDAZOLE 500 MG INJ 100 ML IV SCH (06:09)
[2017-12-17 08:00] VITALS: BP 124/76; PULSE 61; RESP 18; TEMP 97; O2SAT 94
[2017-12-17] MEDS: DOCUSATE SODIUM 50 MG/SENNA 8.6 MG TAB PO SCH (08:30)
[2017-12-17] MEDS: REMOVE OLD PATCH T-DERMAL SCH (08:30)
[2017-12-17] MEDS: NICOTINE 7 MG/24 HR PATCH T-DERMAL SCH (08:30)
[2017-12-17] MEDS: THIAMINE HCL 100 MG TAB PO SCH (08:31)
[2017-12-17] MEDS: SODIUM CHLORIDE 0.9% FLUSH 10 ML FLUSH IV FLUSH SCH (09:00)
[2017-12-17 09:31] VITALS: RESP 18
--- NOTE | 2017-12-17 09:48 | HHI.DCPOC ---
Discharge Care Plan Diagnosis: (1) Diverticulitis of sigmoid colon (2) Sierra esophagus (3) Acute pancreatitis (4) Alcohol withdrawal Goals to Promote Your Health * To prevent worsening of your condition and complications * To maintain your health at the optimal level Directions to Meet Your Goals Take your medications as prescribed Follow your dietary instruction Follow activity as directed Keep your appointments as scheduled Take your immunizations and boosters as scheduled If your symptoms worsen call your PCP, if no PCP go to Urgent Care Center or Emergency Room Smoking is Dangerous to Your Health. Avoid second hand smoke Call the 24-hour hour crisis hotline for domestic abuse at Nohemy Mcneill MD R2 Dec 17, 2017 09:48
[2017-12-17] MEDS ORDERED: METR-1 PO (09:55)
[2017-12-17] MEDS ORDERED: HYDR-3516 PO (09:55)
[2017-12-17] MEDS ORDERED: CIPR500T2 PO (09:55)
[2017-12-17 11:04] VITALS: O2SAT 94
[2017-12-17] MEDS ORDERED: OMEP20TA93 PO (11:28)
--- NOTE | 2017-12-17 13:13 | HHI.DS ---
Discharge Summary Admission Date Dec 13, 2017 at 09:46 Discharge Date: Dec 17, 2017 Admitting Diagnosis acute pancreatitis (1) Chronic alcoholic pancreatitis ICD Codes: K86.0 - Alcohol-induced chronic pancreatitis Status: Acute (2) Colitis Diagnosis: Principal ICD Codes: K52.9 - Noninfective gastroenteritis and colitis, unspecified (3) Superficial ulcer of skin ICD Codes: L98.491 - Non-pressure chronic ulcer of skin of other sites limited to breakdown of skin Procedures Colonoscopy 12/15 and 12/16 EGD 12/15 Brief History Patient is a 42-year-old male with a past medical history of recurrent pancreatitis secondary to alcohol abuse and chronic back pain that presents to the [facility] with a chief complaint of sharp, cutting, 10/10 abdominal pain that radiates to his back that began yesterday when he woke up in the morning. The pain is located in his epigastric/right upper quadrant area and is associated with vomiting nonbloody food material 2 times.. Patient states that 2 days ago, he drank a 6 pack of beer and he normally drinks 2-3 beers every other day. The patient also complains of a superficial ulcer on his left lower extremity that started in the first week of December. He works odd jobs and believes that he may have rubbed his foot against something that caused the ulcer. Patient currently lives in a tent and is registered with the homeless [facility]. CBC/BMP: 12/16/17 0641 12/16/17 0641 Significant Findings Laboratory Tests Test 12/15/17 06:43 12/16/17 06:41 Red Blood Count 3.57 MIL/MM3 (4.50-5.90) 3.56 MIL/MM3 (4.50-5.90) Hemoglobin 11.7 GM/DL (13.0-17.0) 11.4 GM/DL (13.0-17.0) Hematocrit 34.3 % (39.0-51.0) 34.6 % (39.0-51.0) Red Cell Distribution Width 17.3 % (11.6-17.2) Monocytes (%) (Auto) 20.3 % (0.0-8.0) Monocytes # (Auto) 1.8 TH/MM3 (0-0.9) Blood Urea Nitrogen 2 MG/DL (7-18) 1 MG/DL (7-18) Creatinine 0.51 MG/DL (0.60-1.30) 0.50 MG/DL (0.60-1.30) Albumin 3.0 GM/DL (3.4-5.0) Potassium Level 3.4 MEQ/L (3.5-5.1) PE at Discharge GENERAL: This is a well-developed patient in no acute distress. HEAD: Atraumatic. Normocephalic EYES: Extraocular motions intact. No scleral icterus. No injection or drainage. ENT: Nose without bleeding, drainage, rhinorrhea. Poor dentition. Airway patent. NECK: Trachea midline. No lymphadenopathy. Supple, nontender, no meningeal signs. CARDIOVASCULAR: Regular rate and rhythm without murmur, gallop, or rub. RESPIRATORY: Clear to auscultation. Breath sounds equal bilaterally. No wheezes , rales, or rhonchi. GASTROINTESTINAL: Abdomen soft, moderately tender to palpation of left side of abdomen, nondistended. Normal BS. Midline vertical surgical scar well healed. MUSCULOSKELETAL: Extremities without clubbing, cyanosis, or edema. No joint tenderness, effusion, or edema noted. No calf tenderness. NEUROLOGICAL: Awake and alert. Cranial nerves II through XII intact. Motor and sensory grossly within normal limits. Normal speech. Hospital Course 41-year-old male with past medical history of recurrent pancreatitis secondary to alcohol abuse presented with chief complaint of epigastric abdominal pain and elevated lipase that was consistent with acute on chronic pancreatitis. He was admitted to the hospital for administration of IV fluids, antibiotics and pain control. EGD showed Sierra's esophagus and colonoscopy showed sigmoid diverticulosis without diverticulitis. He did well during his hospital stay with improvement in abdominal pain and he was able to tolerate oral nutrition. Start home in stable condition to complete 5 more days of oral Cipro and Flagyl. He was encouraged to avoid alcohol use. Pt Condition on Discharge: Stable Discharge Disposition: Discharge Home Discharge Instructions DIET: Follow Instructions for: As Tolerated, No Restrictions Activities you can perform: Weight Bearing as Cathryn Activities to Avoid: Prolonged Standing, Strenuous Activity Follow up Referrals: PCP Follow-up - 1 Week New Medications: Ciprofloxacin (Ciprofloxacin) 500 Mg Tab 500 MG PO BID for Infection, #14 TAB 0 Refills Metronidazole (Flagyl) 500 Mg Tab 500 MG PO Q8HR for Infection, #21 TAB 0 Refills Omeprazole (Omeprazole) 20 Mg Tab 20 MG PO DAILY for Reflux for 30 Days, #30 TAB 0 Refills Hydrocodone/Acetaminophen (Hydrocodone-Acetamin 5-325 mg) 5 Mg-325 Mg Tablet 1 TAB PO Q6HR PRN for PAIN, #20 Nohemy Mcneill MD R2 Dec 17, 2017 13:13
--- NOTE | 2017-12-17 13:25 | HHI.FPPN ---
Subjective Remarks Patient is doing well this morning, he still has abdominal pain which is down to 5/10. No nausea or vomiting. Tolerating a regular diet. (EkoNohemy MD R2) Objective Vitals Vital Signs Date Time Temp Pulse Resp B/P (MAP) Pulse Ox O2 Delivery O2 Flow Rate FiO2 12/17/17 11:04 94 12/17/17 09:31 18 12/17/17 08:00 97.0 61 18 124/76 (92) 94 12/17/17 00:09 98.9 69 20 130/79 (96) 98 12/16/17 20:00 97.2 82 18 118/82 (94) 98 12/16/17 17:50 97 21 12/16/17 16:27 97.8 62 18 135/80 (98) 97 I/O 12/16/17 12/16/17 12/16/17 12/17/17 12/17/17 12/17/17 07:00 15:00 23:00 07:00 15:00 23:00 Intake Total 1250 ml 2250 ml Output Total 1500 ml Balance 1250 ml 750 ml Intake Oral 1050 ml IV Total 800 ml 1200 ml Other 450 ml Output Urine Total 1500 ml # Voids 7 # Bowel Movements 5 0 (EkoNohemy MD R2) Result Diagram: 12/16/17 0641 12/16/17 06 Objective Remarks GENERAL: This is a well-developed patient in no acute distress. HEAD: Atraumatic. Normocephalic EYES: Extraocular motions intact. No scleral icterus. No injection or drainage. ENT: Nose without bleeding, drainage, rhinorrhea. Poor dentition. Airway patent. NECK: Trachea midline. No lymphadenopathy. Supple, nontender, no meningeal signs. CARDIOVASCULAR: Regular rate and rhythm without murmur, gallop, or rub. RESPIRATORY: Clear to auscultation. Breath sounds equal bilaterally. No wheezes , rales, or rhonchi. GASTROINTESTINAL: Abdomen soft, moderately tender to palpation of left side of abdomen, nondistended. Normal BS. Midline vertical surgical scar well healed. MUSCULOSKELETAL: Extremities without clubbing, cyanosis, or edema. No joint tenderness, effusion, or edema noted. No calf tenderness. NEUROLOGICAL: Awake and alert. Cranial nerves II through XII intact. Motor and sensory grossly within normal limits. Normal speech. Procedures Colonoscopy 12/15 and 12/16 EGD 12/15 (Nohemy Mcneill MD R2) A/P Assessment and Plan 41-year-old male with past medical history of recurrent pancreatitis secondary to alcohol abuse presents with chief complaint of epigastric abdominal pain and elevated lipase that is consistent with acute on chronic pancreatitis. Differential diagnosis includes gastritis, gastroenteritis, cholecystitis, colitis. He was admitted to the hospital for administration of IV fluids, antibiotics and pain control. Discussed with Dr. Baker Discharge Planning Plan to discharge home today (Nohemy Mcneill MD R2) Attending Attestation Patient seen and examined. Case reviewed and discussed Agree with plan of care as discussed with me and documented in the resident note. (Kerry Baker MD) Problem List: (1) Colitis ICD Codes: K52.9 - Noninfective gastroenteritis and colitis, unspecified Plan: GI consulted for further evaluation and management, appreciate recommendations. -Lactic acid 0.7 -Cipro 400mg IV q12h (12/14- ) -Flagyl 500mg IV q8h (12/14- ) -Colonoscopy 12/15 with poor prep; Colonoscopy 12/16 showed mild sigmoid diverticulosis, otherwise unremarkable, no biopsies taken -EGD 12/15 showing Sierra's esophagus and gastritis -Zofran 4mg IV PRN -NPO until after procedure today, then cleared to go home per Dr Crouch (2) Chronic alcoholic pancreatitis ICD Codes: K86.0 - Alcohol-induced chronic pancreatitis Status: Acute Plan: Acute on chronic pancreatitis - resolved -Recurrent secondary to alcohol dependence -Supportive care with IV fluids, see below -[place] 5 for pain 3-5, 7.5 for pain 6-10 -Dilaudid 0.5 mg Q4H IV as needed for breakthrough Imaging: Abdomen/pelvis CT 12/13/17: Mild superimposed acute pancreatitis possible in the proper clinical setting. No pseudocyst. (3) Superficial ulcer of skin ICD Codes: L98.491 - Non-pressure chronic ulcer of skin of other sites limited to breakdown of skin Plan: -Does not appear infected -Daily dressing changes (4) chronic medical problems Plan: Alcohol abuse: CIWA protocol, thiamine, multivitamin Smoking: Nicotine patch 7mg, change daily (5) FEN/DVT PPX/GI PPX/Nursing Orders Plan: Fluids: NS at 1.5 maintenance Electrolytes: Will monitor and replace as needed Nutrition: Regular adult diet DVT Prophylaxis: Lovenox 40mg subcutaneous daily GI Prophylaxis: Protonix 40mg IV every 24 hours Constipation prophylaxis: Pericolace 1 tab PO BID PRN Medications Tylenol 650 mg IV every 6 hours when necessary temperature greater than 100.4F Zofran 4 mg IV push every 6 hours when necessary nausea vomiting Vasotec 1.25 mg IV PRN SBP greater than 170 or DBP greater than 100 -Vitals Q4h -Monitor I's and O's -Fall precautions -Neurochecks -Seizure precautions -Activity out of bed as tolerated -PT to assist with ambulation -Case management consult to assist with discharge disposition and alcohol abuse DC plan (Nohemy Mcneill MD R2) Nohemy Mcneill MD R2 Dec 17, 2017 13:25 Kerry Baker MD Dec 23, 2017 16:23
== END 2017-12-17 11:01 | disposition home or self-care (01) | DRG 439 ==
LOC: NEPE 07:27 → NEDA 09:46 → N07A 14:31
PROVIDERS: ADMIT Family Medicine; ATTEND Family Medicine
PROC: 0DJD8ZZ Inspection of Lower Intestinal Tract, Via Natural or Artificial Opening Endoscopic (ICD-10-PCS; 2017-12-15)
PROC: 0DB58ZX Excision of Esophagus, Via Natural or Artificial Opening Endoscopic, Diagnostic (ICD-10-PCS; principal; 2017-12-15 16:20)
PROC: 0DB68ZX Excision of Stomach, Via Natural or Artificial Opening Endoscopic, Diagnostic (ICD-10-PCS; 2017-12-15 16:20)
PROC: 0DJD8ZZ Inspection of Lower Intestinal Tract, Via Natural or Artificial Opening Endoscopic (ICD-10-PCS; 2017-12-16)
DX: K85.20 Alcohol induced acute pancreatitis without necrosis or infection (principal); R65.10 Systemic inflammatory response syndrome (SIRS) of non-infectious origin without acute organ dysfunction; F10.239 Alcohol dependence with withdrawal, unspecified; L97.829 Non-pressure chronic ulcer of other part of left lower leg with unspecified severity; R71.0 Precipitous drop in hematocrit; E87.1 Hypo-osmolality and hyponatremia; K86.0 Alcohol-induced chronic pancreatitis; K22.70 Barrett's esophagus without dysplasia; K21.0 Gastro-esophageal reflux disease with esophagitis; K57.30 Diverticulosis of large intestine without perforation or abscess without bleeding; K52.9 Noninfective gastroenteritis and colitis, unspecified; F12.90 Cannabis use, unspecified, uncomplicated; F17.210 Nicotine dependence, cigarettes, uncomplicated; Z23 Encounter for immunization; Z59.0 Homelessness; Z86.14 Personal history of Methicillin resistant Staphylococcus aureus infection; Z90.81 Acquired absence of spleen
CPT/HCPCS: 71045; 74177; 80048; 80053; 80307; 81001; 82247; 83605; 83690; 83735; 84100; 85025; 85027; 85610; 85730; 87040; 88305; 88312; 90686; 94150; 96361; 96374; 96375; C9113; J0744; J1170; J1650; J2060; J2270; J2405; J2543; J3411; J7030; J7040; Q2038; Q9963; Q9967

== ENCOUNTER 2018-01-18 16:37 | Inpatient (IN) | payer OTHER ==
[~2018-01-18 16:37] MED LIST changes: -CARA1TAB6 PO; +CIPR500T2 PO; -FOLI1TAB6 PO; +METR-1 PO; -MUPI2OIN TOPICAL; +OMEP20TA93 PO; -PANT40TA3 PO; -THIA100 PO
[2018-01-18 16:58] VITALS: BP 125/87; PULSE 95; RESP 18; TEMP 100.2; O2SAT 97
[2018-01-18 17:37] LABS: AUTOMATED NEUTROPHIL # 12.2 TH/MM3 (1.8-7.7); BASOPHIL % 0.3 % (0.0-2.0); EOSINOPHIL % 0.1 % (0.0-4.0); HEMOGLOBIN 12.8 GM/DL (13.0-17.0); LYMPH % 5.4 % (9.0-44.0); LYMPHOCYTE # 0.8 TH/MM3 (1.0-4.8); MEAN CELL VOLUME 94.8 FL (80.0-100.0); MEAN CORPUSCULAR HGB CONC 33.8 % (32.0-36.0); MEAN PLATELET VOLUME 7.9 FL (7.0-11.0); MONO % 13.4 % (0.0-8.0); NEUT % 80.8 % (16.0-70.0); PLATELET COUNT 194 TH/MM3 (150-450); RED CELL DISTRIBUTION WIDTH 17.4 % (11.6-17.2)
[2018-01-18 17:51] LABS: ALBUMIN 3.4 GM/DL (3.4-5.0); ALT (GPT) 35 U/L (12-78); AST (GOT) 65 U/L (15-37); BICARBONATE 26.6 MEQ/L (21.0-32.0); BLOOD UREA NITROGEN 7 MG/DL (7-18); CALCIUM 8.2 MG/DL (8.5-10.1); CHLORIDE 103 MEQ/L (98-107); CREATININE 0.66 MG/DL (0.60-1.30); GLOMERULAR FILTRATION RATE 131 ML/MIN (>89); GLUCOSE,RANDOM 81 MG/DL (74-106); SODIUM (NA) 138 MEQ/L (136-145)
[2018-01-18 17:53] LABS: ALKALINE PHOSPHATASE 44 U/L (45-117); TOTAL BILIRUBIN ADULT 0.2 MG/DL (0.2-1.0); TOTAL PROTEIN 7.6 GM/DL (6.4-8.2)
[2018-01-18 18:26] VITALS: BP 134/79; PULSE 94; RESP 18; O2SAT 100
[2018-01-18 19:13] LABS: BILIRUBIN, URINE NEG (NEG); BLOOD, URINE NEG (NEG); GLUCOSE,URINE NEG (NEG); KETONE, URINE TRACE mg/dL (NEG); MUCUS URINE FEW /lpf (OCC); NITRITE,URINE NEG (NEG); PH, URINE 5.5 (5.0-8.5); URINE COLOR YELLOW (YELLW/STRAW); URINE LEUKOCYTE ESTERASE NEG (NEG)
[2018-01-18] MEDS ORDERED: MORPHINE SULFATE 4 MG/ML INJ IV PUSH ONE (19:15)
[2018-01-18] MEDS ORDERED: ONDANSETRON HCL 4 MG/2 ML VIAL IV PUSH ONE (19:15)
[2018-01-18] MEDS ORDERED: SODIUM CHLOR 0.9% 1000 ML INJ 1,000 ML IV ONE (19:15)
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
[2018-01-18 19:34] VITALS: BP 133/70; PULSE 95; RESP 16; O2SAT 94
[2018-01-18] MEDS ORDERED: IOHEXOL 350 MG/ML 10 ML VIAL (for RAD DIAG) IVCONTRAST ONE (19:41)
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
[2018-01-18] MEDS ORDERED: ONDANSETRON HCL 4 MG/2 ML VIAL IVP PRN (21:00)
[2018-01-18] MEDS ORDERED: NALOXONE HCL 0.4 MG/ML AMP IV PUSH PRN (21:00)
[2018-01-18] MEDS ORDERED: HEPARIN SODIUM - SQ 10,000 UNITS/ML VIAL SQ SCH (21:00)
[2018-01-18] MEDS ORDERED: SODIUM CHLORIDE 0.9% FLUSH 10 ML FLUSH IV FLUSH PRN (21:00)
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
[2018-01-18] MEDS ORDERED: MORPHINE SULFATE 2 MG/ML INJ IV PUSH PRN (21:45)
[2018-01-18] MEDS: SODIUM CHLORIDE 0.9% FLUSH 10 ML FLUSH IV FLUSH SCH (21:46)
[2018-01-18] MEDS: SODIUM CHLOR 0.9% 1000 ML INJ 1,000 ML IV SCH (21:46)
[2018-01-18 22:05] VITALS: BP 121/71; PULSE 88; RESP 18; TEMP 101.1; O2SAT 95
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
[2018-01-18] MEDS ORDERED: LORazepam 2 MG TAB PO PRN (22:15)
[2018-01-18] MEDS ORDERED: LORazepam 2 MG/ML VIAL IV PUSH PRN ×4 (22:15)
[2018-01-18] MEDS ORDERED: FLUMAZENIL 0.5 MG/5 ML VIAL IV PUSH PRN (22:15)
[2018-01-18] MEDS ORDERED: LORazepam 1 MG TAB PO PRN (22:15)
[2018-01-18] MEDS: ACETAMINOPHEN 325 MG TAB PO PRN (22:35)
[2018-01-18] MEDS: MORPHINE SULFATE 4 MG/ML INJ IV PUSH PRN (22:36)
[2018-01-18 23:50] VITALS: PULSE 79; TEMP 100.4
[2018-01-19] MEDS: THIAMINE INJ 100 MG in SODIUM CHLORIDE 0.9% INJ 100 ML IV SCH (00:37)
[2018-01-19] MEDS: MORPHINE SULFATE 4 MG/ML INJ IV PUSH PRN ×2 (03:38→08:38)
[2018-01-19 03:50] VITALS: BP 147/79; PULSE 91; RESP 18; TEMP 100.4; O2SAT 94
[2018-01-19 05:53] LABS: AUTOMATED NEUTROPHIL # 10.1 TH/MM3 (1.8-7.7); BASOPHIL # 0.1 TH/MM3 (0-0.2); BASOPHIL % 0.5 % (0.0-2.0); EOSINOPHIL % 0.1 % (0.0-4.0); HEMATOCRIT 38.9 % (39.0-51.0); LYMPH % 8.3 % (9.0-44.0); LYMPHOCYTE # 1.1 TH/MM3 (1.0-4.8); MEAN CELL VOLUME 93.2 FL (80.0-100.0); MEAN CORPUSCULAR HEMOGLOBIN 31.2 PG (27.0-34.0); MEAN CORPUSCULAR HGB CONC 33.5 % (32.0-36.0); MEAN PLATELET VOLUME 8.4 FL (7.0-11.0); MONO % 13.7 % (0.0-8.0); MONOCYTE # 1.8 TH/MM3 (0-0.9); NEUT % 77.4 % (16.0-70.0); PLATELET COUNT 202 TH/MM3 (150-450); RED BLOOD COUNT 4.17 MIL/MM3 (4.50-5.90); RED CELL DISTRIBUTION WIDTH 17.4 % (11.6-17.2); WHITE BLOOD COUNT 13.1 TH/MM3 (4.0-11.0)
[2018-01-19 06:22] LABS: CALCIUM 8.6 MG/DL (8.5-10.1); CREATININE 0.71 MG/DL (0.60-1.30)
[2018-01-19] MEDS: SODIUM CHLOR 0.9% 1000 ML INJ 1,000 ML IV SCH ×2 (06:59→17:27)
[2018-01-19 08:00] VITALS: BP 125/76; PULSE 78; RESP 18; TEMP 99.4; O2SAT 97
[2018-01-19] MEDS: SODIUM CHLORIDE 0.9% FLUSH 10 ML FLUSH IV FLUSH SCH ×2 (08:39→20:44)
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
[2018-01-19] MEDS ORDERED: KETOROLAC TROMETHAMINE 30 MG/ML (IVP) VIAL IV PUSH PRN (11:00)
[2018-01-19] MEDS: KETOROLAC TROMETHAMINE 60 MG/2 ML (IM) VIAL IM PRN ×2 (11:04→17:24)
[2018-01-19 12:00] VITALS: BP 140/72; PULSE 72; RESP 18; TEMP 99.4; O2SAT 96
[2018-01-19 16:00] VITALS: BP 133/79; PULSE 65; RESP 18; TEMP 99; O2SAT 100
[2018-01-19 20:40] VITALS: BP 129/71; PULSE 74; RESP 17; TEMP 100; O2SAT 96
[2018-01-19] MEDS ORDERED: MORPHINE SULFATE 4 MG/ML INJ IV PUSH ONE (21:30)
[2018-01-19] MEDS ORDERED: MORPHINE SULFATE 2 MG/ML INJ IV PUSH PRN (21:30)
[2018-01-19 23:55] VITALS: BP 133/78; PULSE 76; RESP 17; TEMP 99.6; O2SAT 98
[2018-01-20] MEDS: SODIUM CHLOR 0.9% 1000 ML INJ 1,000 ML IV SCH ×2 (00:38→10:09)
[2018-01-20] MEDS: THIAMINE INJ 100 MG in SODIUM CHLORIDE 0.9% INJ 100 ML IV SCH ×2 (00:38→23:07)
[2018-01-20 04:05] VITALS: BP_SYST 126; BP_SYST 133; BP_DIAS 76; BP_DIAS 81; PULSE 62; PULSE 85; RESP 15; RESP 16; TEMP 98.6; TEMP 98.8; O2SAT 97; O2SAT 99
[2018-01-20 07:29] VITALS: BP 110/85; PULSE 63; RESP 18; TEMP 98.8; O2SAT 98
[2018-01-20] MEDS: SODIUM CHLORIDE 0.9% FLUSH 10 ML FLUSH IV FLUSH SCH ×2 (10:09→21:00)
[2018-01-20] MEDS: KETOROLAC TROMETHAMINE 30 MG/ML (IVP) VIAL IV PUSH PRN ×3 (10:17→22:04)
[2018-01-20 11:20] VITALS: O2SAT 98
[2018-01-20 11:35] VITALS: BP 133/88; PULSE 62; RESP 18; TEMP 98.5; O2SAT 96
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
[2018-01-20 16:00] VITALS: BP 138/78; PULSE 55; RESP 18; TEMP 99; O2SAT 97
[2018-01-20 21:05] VITALS: BP 133/82; PULSE 61; RESP 17; TEMP 98.8; O2SAT 97
[2018-01-21 00:45] VITALS: BP 131/75; PULSE 54; RESP 17; TEMP 98.7; O2SAT 97
[2018-01-21 08:00] VITALS: BP 127/73; PULSE 60; RESP 18; TEMP 98.3; O2SAT 98
[2018-01-21] MEDS: SODIUM CHLOR 0.9% 1000 ML INJ 1,000 ML IV SCH (08:41)
[2018-01-21] MEDS: SODIUM CHLORIDE 0.9% FLUSH 10 ML FLUSH IV FLUSH SCH (08:42)
[2018-01-21] MEDS: ACETAMINOPHEN 325 MG TAB PO PRN (08:42)
[2018-01-21] MEDS: KETOROLAC TROMETHAMINE 30 MG/ML (IVP) VIAL IV PUSH PRN ×2 (08:44→13:43)
[2018-01-21 12:00] VITALS: BP 118/80; PULSE 62; RESP 18; TEMP 99.5; O2SAT 98
[2018-01-21] MEDS ORDERED: VITA100T54 PO (12:11)
[2018-01-21] MEDS ORDERED: HYDR-3288 PO (12:11)
--- NOTE | 2018-01-21 12:46 | HHI.PR ---
Subjective Remarks Follow-up acute recurrent pancreatitis/questionable pancreatic duct leak 01/19/18-patient seen and examined, complains of mild abdominal pain and states he can try some by mouth. Currently afebrile 01/20/18-patient seen and examined, still complains of abdominal pain, no nausea and vomiting with by mouth intake. 01/21/18- seen and examined still with some abdominal pain however improved. Objective Vitals Vital Signs Date Time Temp Pulse Resp B/P (MAP) Pulse Ox O2 Delivery O2 Flow Rate FiO2 01/21/18 12:00 99.5 62 18 118/80 (93) 98 01/21/18 08:00 98.3 60 18 127/73 (91) 98 01/21/18 00:45 98.7 54 17 131/75 (93) 97 01/20/18 21:05 98.8 61 17 133/82 (99) 97 01/20/18 16:50 18 01/20/18 16:00 99.0 55 18 138/78 (98) 97 I/O 01/20/18 01/20/18 01/20/18 01/21/18 01/21/18 01/21/18 07:00 15:00 23:00 07:00 15:00 23:00 Intake Total 880 ml 1200 ml 1301 ml 302 ml Balance 880 ml 1200 ml 1301 ml 302 ml Intake Oral 880 ml 1200 ml 1200 ml IV Total 101 ml 302 ml # Voids 3 4 4 # Bowel Movements 0 2 0 Result Diagram: 01/19/18 0459 01/19/18 0459 Objective Remarks GENERAL: NAD SKIN: Warm and dry. HEAD: Normocephalic. EYES: No scleral icterus. No injection or drainage. NECK: Supple, trachea midline. No JVD or lymphadenopathy. CARDIOVASCULAR: Regular rate and rhythm without murmurs, gallops, or rubs. RESPIRATORY: Breath sounds equal bilaterally. No accessory muscle use. GASTROINTESTINAL: Abdomen soft, mildly tender, nondistended. +BS MUSCULOSKELETAL: No cyanosis, or edema. BACK: Nontender without obvious deformity. No CVA tenderness. Procedures none A/P Problem List: (1) Alcohol abuse ICD Code: F10.10 - Alcohol abuse Status: Acute (2) Leukocytosis ICD Code: D72.829 - Leukocytosis Status: Acute (3) Pancreatitis ICD Code: K85.90 - Pancreatitis Status: Acute Assessment and Plan 42-year-old man with Pancreatitis, acute on chronic-Improving Abdominal CT shows chronic recurrent inflammatory process in the left upper quadrant that has been present on all prior CTs dating back to 2013. -IVF -Pain management with IV Toradol -Continue Clear liquid SIRS, no source, wbc 15, low grade temps 100.2 UA normal -Resolved Alcohol abuse -Encouraged to quit, counseled on importance of quitting to improve pancreatitis -CIWA protocol, Rally pack DVT prophylaxis: Mayco Mcgovern MD Jan 21, 2018 12:46
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
== END 2018-01-21 15:17 | disposition home or self-care (01) | DRG 439 ==
LOC: NEPE 16:37 → NEDA 20:55 → INTOOBSV 20:55 → N06B 21:50 → OBSVTOIN 21:56
PROVIDERS: ADMIT Hospitalist; ATTEND Hospitalist
DX: K85.20 Alcohol induced acute pancreatitis without necrosis or infection (principal); R65.10 Systemic inflammatory response syndrome (SIRS) of non-infectious origin without acute organ dysfunction; F10.10 Alcohol abuse, uncomplicated; G89.29 Other chronic pain; K86.0 Alcohol-induced chronic pancreatitis; K21.9 Gastro-esophageal reflux disease without esophagitis; E11.9 Type 2 diabetes mellitus without complications; F17.210 Nicotine dependence, cigarettes, uncomplicated
CPT/HCPCS: 71045; 74177; 80048; 80053; 81001; 82948; 83605; 83690; 85025; 96361; 96374; 96375; J1644; J1885; J2270; J2405; J3411; J7030; Q9967

== ENCOUNTER 2018-04-15 17:27 | Emergency (ER) | END 2018-04-15 23:22 | disposition home or self-care (01) | DX: M54.31 Sciatica, right side (principal); F10.929 Alcohol use, unspecified with intoxication, unspecified; E11.9 Type 2 diabetes mellitus without complications; F17.210 Nicotine dependence, cigarettes, uncomplicated | CPT/HCPCS: 96372; 99283; J1100; J2360 ==